=== PATIENT | female | born 1935 | race Caucasian/White ===

== ENCOUNTER 2017-04-30 10:21 | Emergency (ER) | payer OTHER, BC ==
[2017-04-30 10:39] VITALS: BMI 24.6
--- NOTE | 2017-04-30 13:13 | PDOC ---
History of Present Illness - General Chief Complaint: Constipation Stated Complaint: CONSTIPATED Time Seen by Provider: 04/30/17 10:48 History Source: Patient Exam Limitations: No Limitations - History of Present Illness Travel History: No Initial Comments: 04/30/17 12:07 81-year-old female brought in by daughter for evaluation of constipation for the past 2 weeks. Patient also complaining of abdominal distention without nausea, fever, chills, decreased flatulence, or change in urine pattern. Patient states has history of constipation over the years and has had multiple medication regimens. Patient states was seen by Dr. Sneed earlier this week who placed on MiraLAX and suppositories with no improvement. Patient states she was given a prescription for an x-ray if symptoms continue. Timing/Duration: reports: getting worse Quality: reports: moderate, fullness Abdominal Pain Onset Location: reports: generalized abdomen Aggravating Factors: improves with: None Alleviating Factors: improves with: None Past History - Travel Traveled outside of the country in the last 30 days: No - Past Medical History Allergies/Adverse Reactions: Allergies Allergy/AdvReac Type Severity Reaction Status Date / Time No Known Allergies Allergy Unverified 06/09/12 13:25 Home Medications: Ambulatory Orders Amlodipine Besylate [Norvasc -] 2.5 mg PO DAILY 04/30/17 Aspirin [ASA -] 325 mg PO DAILY 04/30/17 Atorvastatin Ca [Lipitor] 80 mg PO HS 04/30/17 Cholecalciferol (Vitamin D3) [Vitamin D3] 2,000 unit PO DAILY 04/30/17 Docusate Sodium [Stool Softener] 100 mg PO BID 04/30/17 Folic Acid 1 mg PO DAILY 04/30/17 Insulin Glargine,Hum.rec.anlog [Lantus (nf)] 34 units SQ HS 04/30/17 Isosorbide Mononitrate [Isosorbide Mononitrate ER] 60 mg PO DAILY 04/30/17 Losartan Potassium 100 mg PO DAILY 04/30/17 Memantine HCl 10 mg PO BID 04/30/17 Metoprolol Succinate [Toprol Xl] 50 mg PO DAILY 04/30/17 [place]-3 Acid Ethyl Esters [Lovaza] 1 gm PO DAILY 04/30/17 Tiotropium [place] [Spiriva] 1 inh IH DAILY 04/30/17 Cardiac Disorders: Yes (1 STENT, ANGINA) Dementia: Yes HTN: Yes - Surgical History Cardiac Surgery: Yes (STENT) Cholecystectomy: Yes - Psycho/Social/Smoking Cessation Hx Suicidal Ideation: No Smoking History: Never smoked Information on smoking cessation initiated: No Hx Alcohol Use: No Drug/Substance Use Hx: No Substance Use Type: None Patient Lives Alone: No Lives with/in: daughter Review of Systems - Review of Systems Able to Perform ROS?: Yes Constitutional: No: Symptoms Reported, Fever, Loss of Appetite, Weakness HEENTM: No: Symptoms Reported Respiratory: No: Symptoms reported Cardiac (ROS): No: Symptoms Reported ABD/GI: Yes: Abdominal Distended, Constipated. No: Diarrhea, Nausea, Poor Appetite, Poor Fluid Intake : No: Symptoms Reported Musculoskeletal: No: Symptoms Reported Integumentary: No: Symptoms Reported Neurological: No: Symptoms reported *Physical Exam - Vital Signs Last Vital Signs Temp Pulse Resp BP Pulse Ox 98.2 F 55 L 17 129/97 99 04/30/17 10:36 04/30/17 11:19 04/30/17 11:19 04/30/17 11:19 04/30/17 11:19 - Physical Exam General Appearance: Yes: Nourished, Appropriately Dressed. No: Apparent Distress Neck: positive: Supple Respiratory/Chest: positive: Lungs Clear, Normal Breath Sounds. negative: Respiratory Distress, Accessory Muscle Use Cardiovascular: negative: Regular Rhythm, Regular Rate, Murmur Gastrointestinal/Abdominal: positive: Soft, Distended. negative: Guarding, Rebound, Tenderness, Mass Musculoskeletal: negative: Normal Inspection Extremity: positive: Normal Capillary Refill Integumentary: positive: Normal Color, Warm, Moist Neurologic: positive: Motor Strength 5/5 (ambulatory) ED Treatment Course - RADIOLOGY Radiology Studies Ordered: Category Date Time Status ABDOMEN & PELVIS CT W/O CONTR [CT] Stat CT Scan 04/30/17 12:02 Ordered ABDOMEN FLAT & UPRIGHT [RAD] Stat Radiology 04/30/17 11:13 Completed Medical Decision Making - Medical Decision Making 04/30/17 12:10 Patient for evaluation of continual constipation despite being placed on medication by her PCP early this week. Patient also started a new medication for dementia approximately 3 weeks ago and was told that this may be the cause but to give the medication a chance. Patient currently on exam had abdominal distention with bowel sounds present 4. Patient had no palpable tenderness or mass. Patient ordered for flat and upright and will consider further imaging once reviewed. 04/30/17 13:12 X-ray shows some abdominal distention with scattered air-fluid levels with no signs of gross constipation. If symptoms persist further imaging with CT may be of help. Patient ordered for abdominal CT with by mouth contrast only. No labs ordered. 04/30/17 16:42 CAT scan shows constipation without acute findings or signs of obstruction inflammation or infection. Patient will be discharged home after receiving a dose of Citrate and then a repeat dose in 4 hours if no bowel movement. Patient given copy of CAT scan report to bring to Dr. Sneed's office. *DC/Admit/Observation/Transfer Diagnosis at time of Disposition: Constipation Qualifiers: Constipation type: other constipation type Qualified Code(s): K59.09 - Other constipation - Discharge Dispostion Disposition: HOME Condition at time of disposition: Good - Referrals Referrals: Evelyn Sneed MD [Primary Care Provider] - - Patient Instructions Printed Discharge Instructions: DI for Constipation Additional Instructions: Please take mag citrate now and then again in 4 hours again if you do not have a bowel movement. Do not have a bowel movement by tomorrow morning please continue regimen as previously prescribed by Dr. Sneed which includes MiraLAX. If symptoms do worsen or continue please either notify your PCP and/or return to the ED.
[2017-04-30] MEDS ORDERED: MAGNESIUM CITRATE 300 ML BOTTLE ONE (16:43)
[2017-04-30] MEDS ORDERED: MAGNESIUM CITRATE 300 ML BOTTLE PO ONE (16:44)
[2017-04-30 17:00] VITALS: BP 172/70; PULSE 82; TEMP 98.6
== END 2017-04-30 17:00 | disposition home or self-care (01) ==
LOC: JER 10:21
DX: K59.09 Other constipation (principal); I20.9 Angina pectoris, unspecified; Z95.5 Presence of coronary angioplasty implant and graft; F03.90 Unspecified dementia, unspecified severity, without behavioral disturbance, psychotic disturbance, mood disturbance, and anxiety; I10 Essential (primary) hypertension
CPT/HCPCS: 74020-TC; 74176-TC; 99282-25; Q9967

== ENCOUNTER 2017-06-16 13:16 | Inpatient (IN) | payer OTHER, BC ==
[2017-06-16] MEDS ORDERED: ALBUTEROL SO4 2.5/IPRATROPIUM 0.5 INH SOL 3 ML VIAL.NEB. NEB ONE ×4 (13:32→14:01)
[2017-06-16 13:38] LABS: ARTERIAL BLD GAS O2 SATURATION 97.4 % (90-98.9); ARTERIAL BLOOD GAS HCO3 24.8 meq/L (22-26)
[2017-06-16 13:41] LABS: ALLENS TEST POSITIVE; ART PUNCT SITE RIGHT RADIAL
[2017-06-16 13:42] LABS: LPM/O2% 100%; PT. ON O2? YES
[2017-06-16] MEDS ORDERED: MAGNESIUM SULF 50% (8.12 MEQ/2 ML-1 GM VIAL) ONE (13:45)
[2017-06-16] MEDS ORDERED: DEXAMETHASONE SOD PHOSPHATE 10 MG/1 ML VIAL ONE (13:45)
[2017-06-16 13:49] LABS: BASOPHIL 1.3 % (0-2.0); EOSINOPHIL 1.6 % (0-4.5); MCH 27.2 pg (25.7-33.7); MCHC 31.4 g/dl (32.0-36.0); MEAN CELL VOLUME 86.7 fl (80-96); MEAN PLT VOLUME 8.7 fl (7.5-11.1); NEUTROPHILS 63.2 % (42.8-82.8); PLATELET COUNT 433 K/MM3 (134-434); RDW 14.6 % (11.6-15.6); WHITE BLOOD COUNT 19.4 K/mm3 (4.0-10.0)
[2017-06-16 14:08] LABS: ARTERIAL BLOOD GAS pH 7.09 (7.35-7.45)
[2017-06-16 14:15] LABS: ALBUMIN 3.5 g/dl (3.4-5.0); ANION GAP 9 (8-16); BILIRUBIN,TOTAL 0.3 mg/dL (0.2-1.0); CALCIUM 9.2 mg/dL (8.5-10.1); CO2 26 mmol/L (21-32); CREATININE 1.1 mg/dL (0.55-1.02); GLUCOSE,RANDOM 204 mg/dL (74-106); INR 1.01 (0.82-1.09); PROTHROMBIN TIME (PATIENT) 11.4 SEC (9.98-11.88); SGOT/AST 24 U/L (15-37); SGPT/ALT 27 U/L (12-78); TOT PROT 7.2 g/dl (6.4-8.2)
[2017-06-16 14:17] LABS: ALK PHOS 108 U/L (45-117); CPK 110 IU/L (26-192); TROPONIN I < 0.02 ng/ml (0.00-0.05)
[2017-06-16 14:18] LABS: ACTIVATED PTT 29.9 SECONDS (26.9-34.4)
--- NOTE | 2017-06-16 14:27 | PDOC ---
History of Present Illness - General History Source: EMS, Family Exam Limitations: Other - History of Present Illness Initial Comments: 06/16/17 15:45 81 year old female, with significant past medical history of COPD/asthma, DM, HTN, s/p 1 cardiac stent, and HLD, who presents to the emergency room in respiratory distress s/p endoscopy in Dr. Tai office just prior to arrival to the emergency room. The patient was given 100 mg of Propofol during the procedure. Her O2 sat decreased and she had difficulty breathing upon waking up from the procedure. EMS administered 2 combivents, 2 of Mag, and CPAP en route. Son states that she was never intubated for asthma. Allergies: NKDA PCP: Dr. Evelyn Sneed Range Management Specialist: Dr. Lul Solitario Fuel Cell Systems Engineer: Dr. Lamb Lead Generation Marketing Manager: Dr. Donny Carmichael Photography Teacher: Dr. Donny Mueller <Rossy Guevara - Last Filed: 06/16/17 15:45> <Tiburcio Alvarado - Last Filed: 06/16/17 16:50> - General Chief Complaint: Shortness of Breath Stated Complaint: DIFFICULTY BREATHING Time Seen by Provider: 06/16/17 13:34 Past History <Rossy Guevara - Last Filed: 06/16/17 15:45> - Past Medical History Cardiac Disorders: Yes (1 STENT, ANGINA) COPD: (emphysema) Dementia: Yes Diabetes: Yes HTN: Yes Hypercholesterolemia: Yes - Surgical History Cardiac Surgery: Yes (STENT) Cholecystectomy: Yes - Suicide/Smoking/Psychosocial Hx Smoking History: Former smoker Have you smoked in the past 12 months: No Information on smoking cessation initiated: No Hx Alcohol Use: No Drug/Substance Use Hx: No Substance Use Type: None <Tiburcio Alvarado - Last Filed: 06/16/17 16:50> - Past Medical History Allergies/Adverse Reactions: Allergies Allergy/AdvReac Type Severity Reaction Status Date / Time No Known Allergies Allergy Unverified 06/16/17 13:25 Home Medications: Ambulatory Orders Amlodipine Besylate [Norvasc -] 2.5 mg PO DAILY 04/30/17 Aspirin [ASA -] 325 mg PO DAILY 04/30/17 Atorvastatin Ca [Lipitor] 80 mg PO HS 04/30/17 Cholecalciferol (Vitamin D3) [Vitamin D3] 2,000 unit PO DAILY 04/30/17 Docusate Sodium [Stool Softener] 100 mg PO BID 04/30/17 Folic Acid 1 mg PO DAILY 04/30/17 Insulin Glargine,Hum.rec.anlog [Lantus (nf)] 34 units SQ HS 04/30/17 Isosorbide Mononitrate [Isosorbide Mononitrate ER] 60 mg PO DAILY 04/30/17 Losartan Potassium 100 mg PO DAILY 04/30/17 Memantine HCl 10 mg PO BID 04/30/17 Metoprolol Succinate [Toprol Xl] 50 mg PO DAILY 04/30/17 Tiotropium [place] [Spiriva] 1 inh IH DAILY 04/30/17 Insulin Aspart [Novolog] 100 unit SQ 06/16/17 Review of Systems - Review of Systems Able to Perform ROS?: No (Respiratory Distress) <Rossy Guevara - Last Filed: 06/16/17 15:45> *Physical Exam - Vital Signs Last Vital Signs Temp Pulse Resp BP Pulse Ox 98.0 F 111 H 23 122/86 100 06/16/17 14:38 06/16/17 14:38 06/16/17 14:38 06/16/17 14:38 06/16/17 14:38 <Rossy Guevara - Last Filed: 06/16/17 15:45> - Vital Signs Last Vital Signs Temp Pulse Resp BP Pulse Ox 98.0 F 114 H 35 H 191/85 100 06/16/17 14:00 06/16/17 14:00 06/16/17 14:00 06/16/17 14:00 06/16/17 14:00 <Tiburcio Alvarado - Last Filed: 06/16/17 16:50> Heart Score/ECG Review #1 06/16/17 16:30 Twelve-lead EKG was performed and reviewed by me. Sinus tachycardia, rate 124. Normal axis. Normal intervals. poor baseline, but no ST elevations. <Tiburcio Alvarado - Last Filed: 06/16/17 16:50> ED Treatment Course - LABORATORY CBC & Chemistry Diagram: 06/16/17 12:39 06/16/17 12:39 - ADDITIONAL ORDERS Additional order review: Laboratory Results 1006/16/17 06/16/17 14:29 14:14 13:32 PT with INR INR PTT (Actin FS) Puncture Site Right radial Right radial ABG pH 7.16 L* 7.09 L* ABG pCO2 at Pt Temp 66.7 H* D 85.6 H* ABG pO2 at Pt Temp 482.0 H* 131.0 H ABG HCO3 22.9 24.8 ABG O2 Sat (Measured) 99.7 H* 97.4 ABG O2 Content 18.2 17.0 ABG Base Excess -6.5 L -7.0 L Jacinto Test Negative Positive Carboxyhemoglobin 0.7 Methemoglobin 1.0 O2 Delivery Device Bipap 16/7 Bipap 12/7 Oxygen Flow Rate 100% 100% PEEP 0.0 0.0 Sodium Potassium Chloride Carbon Dioxide Anion Gap BUN Creatinine Creat Clearance w eGFR Random Glucose Lactic Acid Calcium Total Bilirubin AST ALT Alkaline Phosphatase Creatine Kinase Troponin I B-Natriuretic Peptide Total Protein Albumin Urine Color Straw Urine Appearance Clear Urine pH 5.0 Urine Protein 2+ H Urine Glucose (UA) Negative Urine Ketones Negative Urine Blood 1+ H Urine Nitrite Negative Urine Bilirubin Negative Urine Urobilinogen Negative Blood Type Antibody Screen 06/16/17 06/16/17 06/16/17 12:39 12:39 12:39 PT with INR INR PTT (Actin FS) Puncture Site ABG pH ABG pCO2 at Pt Temp ABG pO2 at Pt Temp ABG HCO3 ABG O2 Sat (Measured) ABG O2 Content ABG Base Excess Jacinto Test Carboxyhemoglobin Methemoglobin O2 Delivery Device Oxygen Flow Rate PEEP Sodium 141 Potassium 4.2 Chloride 106 Carbon Dioxide 26 Anion Gap 9 BUN 29 H Creatinine 1.1 H Creat Clearance w eGFR 47.55 Random Glucose 204 H Lactic Acid 1.1 Calcium 9.2 Total Bilirubin 0.3 AST 24 ALT 27 Alkaline Phosphatase 108 Creatine Kinase 110 Troponin I < 0.02 B-Natriuretic Peptide 274.28 Total Protein 7.2 Albumin 3.5 Urine Color Urine Appearance Urine pH Urine Protein Urine Glucose (UA) Urine Ketones Urine Blood Urine Nitrite Urine Bilirubin Urine Urobilinogen Blood Type A POSITIVE Antibody Screen Negative 06/16/17 12:39 PT with INR 11.40 INR 1.01 PTT (Actin FS) 29.9 Puncture Site ABG pH ABG pCO2 at Pt Temp ABG pO2 at Pt Temp ABG HCO3 ABG O2 Sat (Measured) ABG O2 Content ABG Base Excess [place] Test Carboxyhemoglobin Methemoglobin O2 Delivery Device Oxygen Flow Rate PEEP Sodium Potassium Chloride Carbon Dioxide Anion Gap BUN Creatinine Creat Clearance w eGFR Random Glucose Lactic Acid Calcium Total Bilirubin AST ALT Alkaline Phosphatase Creatine Kinase Troponin I B-Natriuretic Peptide Total Protein Albumin Urine Color Urine Appearance Urine pH Urine Protein Urine Glucose (UA) Urine Ketones Urine Blood Urine Nitrite Urine Bilirubin Urine Urobilinogen Blood Type Antibody Screen 06/16/17 12:39 RBC 4.50 MCV 86.7 MCHC 31.4 L RDW 14.6 MPV 8.7 Neutrophils % 63.2 Lymphocytes % 29.4 Monocytes % 4.5 Eosinophils % 1.6 Basophils % 1.3 <Rossy Guevara - Last Filed: 06/16/17 15:45> - LABORATORY CBC & Chemistry Diagram: 06/16/17 12:39 06/16/17 12:39 - ADDITIONAL ORDERS Additional order review: Laboratory Results 06/16/17 13:32 Puncture Site Right radial ABG pH 7.09 L* ABG pCO2 at Pt Temp 85.6 H* ABG pO2 at Pt Temp 131.0 H ABG HCO3 24.8 ABG O2 Sat (Measured) 97.4 ABG O2 Content 17.0 ABG Base Excess -7.0 L [place] Test Positive Carboxyhemoglobin 0.7 Methemoglobin 1.0 O2 Delivery Device Bipap 08/06 Oxygen Flow Rate 100% PEEP 0.0 06/16/17 12:39 RBC 4.50 MCV 86.7 MCHC 31.4 L RDW 14.6 MPV 8.7 Neutrophils % 63.2 Lymphocytes % 29.4 Monocytes % 4.5 Eosinophils % 1.6 Basophils % 1.3 - RADIOLOGY Radiology Studies Ordered: Category Date Time Status CHEST X-RAY PORTABLE* [RAD] Stat Radiology 06/16/17 13:25 Completed <Tiburcio Alvarado - Last Filed: 06/16/17 16:50> Medical Decision Making - Medical Decision Making 06/16/17 15:15 EXAM#: TYPE/EXAM: RESULT: [id number] RAD/CHEST X-RAY PORTABLE* HISTORY PROVIDED: Shortness of breath. A single frontal portable projection of the chest at 1:32 PM is submitted. The heart size is not enlarged. No acute infiltrates or pleural effusions are identified. There are increased interstitial markings diffusely most likely are chronic in nature. The possibility of a mild degree of acute congestion cannot be excluded. IMPRESSION: Possible mild congestion. Reported By: Rio Cannon MD 06/16/17 1414 <Rossy Guevara - Last Filed: 06/16/17 15:45> - Critical Care Time Total Critical Care Time (minutes): 60 Critical Care Statement: The care of this patient involved high complexity decision making to prevent further life threatening deterioration of the patient 's condition and/or to evaluate & treat vital organ system(s) failure or risk of failure. - Medical Decision Making 06/16/17 15:16 81yo F hx CAD s/p stent, asthma, p/w resp distress after endoscopy today. Pt minimally responsive on CPAP on presentation, satting 75%. Lungs with poor air movement, and diffuse wheezing. Pt was bagged to 96%, quickly transitioned to BiPAP. Initial ABG with pH 7.09/86/100+. After 1 hour of Bipap, rpt 7.16/67/100+ Clinically, pt is more awake and responsive now. Acute wheezing/resp failure likely 2/2 100mg propofol given during the procedure. Plan -labs -CXR -admit ICU 06/16/17 15:[address] Albright/Rufino for further management. Case discussed in detail with admitting physician including history, physical exam and ancillary studies. Admitting physician has assumed care for the patient, will follow all pending diagnostics and will complete the evaluation and treatment. <Tiburcio Alvarado - Last Filed: 06/16/17 16:50> *DC/Admit/Observation/Transfer - Attestations Scribe Attestion: 06/16/17 15:46 Documentation prepared by IMELDA Newell, acting as medical assistant float for Tiburcio Alvarado MD. <Rossy Guevara - Last Filed: 06/16/17 15:45> - Discharge Dispostion Admit: Yes - Attestations Physician Attestion: 06/16/17 14:52 I, Dr. Tiburcio Alvarado MD, attest that this document has been prepared under my direction and personally reviewed by me in its entirety. I further attest, that it accurately reflects all work, treatment, procedures and medical decision -making performed by me. <Tiburcio Alvarado - Last Filed: 06/16/17 16:50> Diagnosis at time of Disposition: Acute hypercapnic respiratory failure - Discharge Dispostion Condition at time of disposition: Guarded
--- NOTE | 2017-06-16 14:39 | HP ---
Admitting History and Physical - Primary Care Physician PCP: Evelyn Sneed - Admission Chief Complaint: hypoxia and respiratory distress History of Present Illness: 81 yr old female with h/o of asthma,Dm, HLD,CAD and carotid stenosis was getting a endoscopy for some malignancy work up today got propofol for procedure and then had severe asthmatic attack and was sent to ED , her sats were n 70 got nebulizers put on cpap still saturating in 70 range got 10mg decadron and 2mg.in the ER patient was tired placed on bipap got nebulizers more awake her first ABG showed Ph 7.0 nad 85 co2 patient continue to receive nebulizers History Source: Medical Record, Transfer Record - Smoking History Smoking history: Former smoker Have you smoked in the past 12 months: No - Alcohol/Substance Use Hx Alcohol Use: No Home Medications - Allergies Allergies/Adverse Reactions: Allergies Allergy/AdvReac Type Severity Reaction Status Date / Time No Known Allergies Allergy Unverified 06/16/17 13:25 - Home Medications Home Medications: Ambulatory Orders Amlodipine Besylate [Norvasc -] 2.5 mg PO DAILY 04/30/17 Aspirin [ASA -] 325 mg PO DAILY 04/30/17 Atorvastatin Ca [Lipitor] 80 mg PO HS 04/30/17 Cholecalciferol (Vitamin D3) [Vitamin D3] 2,000 unit PO DAILY 04/30/17 Docusate Sodium [Stool Softener] 100 mg PO BID 04/30/17 Folic Acid 1 mg PO DAILY 04/30/17 Insulin Glargine,Hum.rec.anlog [Lantus (nf)] 34 units SQ HS 04/30/17 Isosorbide Mononitrate [Isosorbide Mononitrate ER] 60 mg PO DAILY 04/30/17 Losartan Potassium 100 mg PO DAILY 04/30/17 Memantine HCl 10 mg PO BID 04/30/17 Metoprolol Succinate [Toprol Xl] 50 mg PO DAILY 04/30/17 Tiotropium [place] [Spiriva] 1 inh IH DAILY 04/30/17 Insulin Aspart [Novolog] 100 unit SQ 06/16/17 Review of Systems Unable to obtain ROS, reason: patient has bipap mask on - Review of Systems Respiratory: reports: SOB, Wheezing Physical Examination Vital Signs: Vital Signs Temperature 98.0 F 06/16/17 14:00 Pulse Rate 114 H 06/16/17 14:00 Respiratory Rate 35 H 06/16/17 14:00 Blood Pressure 191/85 06/16/17 14:00 O2 Sat by Pulse Oximetry (%) 100 06/16/17 14:00 Cardiovascular: Yes: Tachycardia, S1, S2 Respiratory: Yes: Accessory Muscle Use, On BiPap Gastrointestinal: Yes: Normal Bowel Sounds, Soft Edema: No Neurological: Yes: Alert (awake) Labs: CBC, BMP 06/16/17 12:39 06/16/17 12:39 Problem List - Problems (1) Acute hypercapnic respiratory failure Assessment/Plan: resp acidosis icu monitoring for resp status bipap serial abg nebulizer solumedrol protonix pulm scd abx monitor QTc interval while on abx Code(s): J96.02 - ACUTE RESPIRATORY FAILURE WITH HYPERCAPNIA (2) Diabetes Assessment/Plan: bgm sliding scale hga1c lipid panel Code(s): E11.9 - TYPE 2 DIABETES MELLITUS WITHOUT COMPLICATIONS Qualifiers: Diabetes mellitus type: type 2 (3) Hypertension Assessment/Plan: cardiology consult CAD aspirin statin,toprol and norvasc Code(s): I10 - ESSENTIAL (PRIMARY) HYPERTENSION (4) CAD (coronary artery disease) Assessment/Plan: statin BB, imdur, Code(s): I25.10 - ATHSCL HEART DISEASE OF [place] CORONARY ARTERY W/O ANG PCTRS (5) Renal insufficiency, mild Assessment/Plan: ivf Code(s): N28.9 - DISORDER OF KIDNEY AND URETER, UNSPECIFIED
[2017-06-16 14:48] LABS: ARTERIAL BLD GAS O2 SATURATION 99.7 % (90-98.9); ARTERIAL BLOOD GAS BASE EXCESS -6.5 meq/l (-2-2); ARTERIAL BLOOD GAS HCO3 22.9 meq/L (22-26)
[2017-06-16 14:49] LABS: ALLENS TEST NEGATIVE; ART PUNCT SITE RIGHT RADIAL; LPM/O2% 100%; PT. ON O2? YES
[2017-06-16 14:50] LABS: TYPE OF O2 BIPAP 16/7
[2017-06-16 14:51] LABS: ARTERIAL BLOOD GAS pH 7.16 (7.35-7.45)
[2017-06-16 14:55] LABS: URINE APPEARANCE CLEAR; URINE BILIRUBIN NEGATIVE (NEGATIVE); URINE BLOOD 1+ (NEGATIVE); URINE COLOR STRAW; URINE GLUCOSE (UA) NEGATIVE (NEGATIVE); URINE KETONE NEGATIVE (NEGATIVE); URINE NITRITE NEGATIVE (NEGATIVE); URINE UROBILINOGEN NEGATIVE mg/dL (0.2-1.0)
[2017-06-16 14:57] LABS: URINE PROTEIN 2+ (NEGATIVE)
[2017-06-16] MEDS ORDERED: SODIUM CHLORIDE 1,000 ML IV SCH (15:15)
--- NOTE | 2017-06-16 15:25 | CON.CARD ---
Consult Consult Specialty:: Cardiology Referred by:: Dr Sneed Reason for Consultation:: sob - History of Present Illness Chief Complaint: sob History of Present Illness: She is an 81 year old female with h/o of asthma, diabetes, chol ,CAD s/p stent mid Lcx 2007 (other vessels nonobst, nlef on echo) follows with Dr Lul Solitario at [facility], carotid stenosis, abdominal pain who was undergoing EGD with propofol for sedation (found with mass) became severely short of breath with wheezing brought to the ER. No chest pain, palpitations, orthopnea, pnd or edema. Baseline exercise tolerance is good. Given asthma treatment and bipap in ER with improvement. Lying flat resisting Bipap. - History Source History Provided By: Patient, Family Member, Medical Record - Past Medical History Cardio/Vascular: Yes: CAD, HTN, Hyperlipdemia Pulmonary: Yes: Asthma, COPD Gastrointestinal: Yes: Other (EGD noted with mass in stomach. ) - Alcohol/Substance Use Hx Alcohol Use: No - Smoking History Smoking history: Former smoker Have you smoked in the past 12 months: No Home Medications - Allergies Allergies/Adverse Reactions: Allergies Allergy/AdvReac Type Severity Reaction Status Date / Time No Known Allergies Allergy Unverified 06/16/17 13:25 - Home Medications Home Medications: Ambulatory Orders Amlodipine Besylate [Norvasc -] 2.5 mg PO DAILY 04/30/17 Aspirin [ASA -] 325 mg PO DAILY 04/30/17 Atorvastatin Ca [Lipitor] 80 mg PO HS 04/30/17 Cholecalciferol (Vitamin D3) [Vitamin D3] 2,000 unit PO DAILY 04/30/17 Docusate Sodium [Stool Softener] 100 mg PO BID 04/30/17 Folic Acid 1 mg PO DAILY 04/30/17 Insulin Glargine,Hum.rec.anlog [Lantus (nf)] 34 units SQ HS 04/30/17 Isosorbide Mononitrate [Isosorbide Mononitrate ER] 60 mg PO DAILY 04/30/17 Losartan Potassium 100 mg PO DAILY 04/30/17 Memantine HCl 10 mg PO BID 04/30/17 Metoprolol Succinate [Toprol Xl] 50 mg PO DAILY 04/30/17 Tiotropium [place] [Spiriva] 1 inh IH DAILY 04/30/17 Insulin Aspart [Novolog] 100 unit SQ 06/16/17 Family Disease History - Family Disease History Family History: Unable to Obtain Review of Systems Unable to obtain ROS, reason: sob Vital Signs: Vital Signs Temperature 98.0 F 06/16/17 14:38 Pulse Rate 111 H 06/16/17 14:38 Respiratory Rate 23 06/16/17 14:38 Blood Pressure 122/86 06/16/17 14:38 O2 Sat by Pulse Oximetry (%) 100 06/16/17 14:38 Constitutional: Yes: Mild Distress Eyes: Yes: Conjunctiva Clear, EOM Intact HENT: Yes: Atraumatic, Normocephalic Neck: Yes: Trachea Midline Respiratory: Yes: Wheezes (bilat throughout lung maldonado) Renal/: Yes: WNL Cardiovascular: Yes: WNL, Regular Rate and Rhythm JVD: No Carotid Bruit: No PMI: Non-Displaced Heart Sounds: Yes: S1, S2 Edema: No Peripheral Pulses WNL: Yes - Other Data Labs, Other Data: CBC, BMP 06/16/17 12:39 06/16/17 12:39 INR, PTT INR 1.01 (0.82-1.09) 06/16/17 12:39 Troponin, BNP 06/16/17 12:39 Troponin I < 0.02 B-Natriuretic Peptide 274.28 Troponin, BNP 06/16/17 12:39 Troponin I < 0.02 B-Natriuretic Peptide 274.28 NSR, nssttw changes. Imaging - Results Chest X-ray: Report Reviewed (AROLDO) Problem List - Problems (1) CAD (coronary artery disease) Assessment/Plan: I believe that her acute hypercapneic respiratory failure is bronchospastic in nature, low likelihood of CHF in the setting of a negative CXR and normal bnp. would continue her HTN and angina medications. OK to hold her aspirin if further gastroenterologic procedures are planned. No cardiac contraindications to GI workup once she is stable from a pulmonary standpoint. Pulm eval. ICU eval pending. Get records from Dr Lul Solitario if any recent workup. would defer ischemia evaluation. Echo Code(s): I25.10 - ATHSCL HEART DISEASE OF [place] CORONARY ARTERY W/O ANG PCTRS Qualifiers: Coronary Disease-Associated Artery/Lesion type: [place] artery [place] vs. transplanted heart: [place] heart Associated angina: without angina Qualified Code(s): I25.10 - Atherosclerotic heart disease of [place] coronary artery without angina pectoris; I25.10 - Atherosclerotic heart disease of [place] coronary artery without angina pectoris; I25.10 - Atherosclerotic heart disease of [place] coronary artery without angina pectoris
[2017-06-16 15:29] LABS: URINE RBC 4 /hpf (0-3); URINE WBC 5 /hpf (3-5)
[2017-06-16] MEDS: METOPROLOL SUCCINATE 50 MG TAB.SR.24H (FP) PO SCH (15:44)
[2017-06-16] MEDS ORDERED: AZITHROMYCIN IVPB 250 ML IVPB ONE (15:45)
[2017-06-16] MEDS: AZITHROMYCIN IVPB 500 MG in DEXTROSE 5%-WATER - 250 ML IVPB SCH (15:52)
[2017-06-16] MEDS ORDERED: ACETAMINOPHEN 1000 MG/100 ML VIAL (NON FORMULARY) IVPB ONE (15:54)
[2017-06-16] MEDS ORDERED: ACETAMINOPHEN INJECTION 100 ML IVPB ONE (15:56)
[2017-06-16] MEDS: INSULIN SLIDING SCALE (NOVOLOG) 1 VIAL SQ SCH ×2 (17:02→21:31)
[2017-06-16 18:41] VITALS: BMI 23.6
[2017-06-16] MEDS ORDERED: FLU VACCINE QUAD 60 MCG/0.5 ML (MDV 17-18) IM ONE (18:42)
[2017-06-16] MEDS: ALBUTEROL SO4 0.083% IH SOL 2.5 MG/3 ML VIAL.NEB. NEB SCH ×2 (18:49→23:30)
[2017-06-16 18:50] LABS: URINE LEUK ESTERASE Negative (NEGATIVE)
[2017-06-16] MEDS ORDERED: ACETAMINOPHEN 325 MG TABLET (FP) PO PRN (19:52)
[2017-06-16] MEDS ORDERED: HEMOQUE TEST 1 EACH EACH ONE (21:06)
[2017-06-16 21:26] LABS: ARTERIAL BLOOD GAS BASE EXCESS -4.1 meq/l (-2-2); ARTERIAL BLOOD GAS HCO3 22.3 meq/L (22-26)
[2017-06-16 21:27] LABS: ALLENS TEST POSITIVE; ART PUNCT SITE RIGHT RADIAL; ARTERIAL BLOOD GAS pH 7.27 (7.35-7.45); LPM/O2% 4L; PT. ON O2? YES; TYPE OF O2 NASAL
[2017-06-16] MEDS: MEMANTINE HCL 10 MG TABLET (FP) PO SCH (21:31)
[2017-06-16] MEDS: MUPIROCIN 2% TOPICAL OINTMENT FOR DECOLONIZATION NS SCH (21:32)
[2017-06-16] MEDS ORDERED: predniSONE 20 MG TABLET (UD) PO ONE (21:34)
--- NOTE | 2017-06-16 21:48 | CONSULT ---
Consult Consult Specialty:: Pulm/CCM Reason for Consultation:: resp failure, COPD - History of Present Illness History of Present Illness: This is a 81 yo woman with DM, HTN, CAD s/p stent, COPD/Asthma who developed acute SOB w/ hypercapnic respiratory failure after an outpatient EGD. Briefly, patient with decreased exercise tolerance w/ SOB after 1 flight of stairs, no home O2. She was undergoing EGD for newly discovered mass. She developed acute SOB w/ diffuse wheezing and sent to the ED. In the ED patient treated for COPD/ asthma exacerbation w/ NIPPV, steroids (decadron 10mg x1), magnesium (2gm) and O2. Initial AB.09/85/131. After multiple albuterol treatment repeat AB.16/66.7/482 (NIPPV: 16/ 100%). Cardiology consulted given c/f HF but troponin and BNP negative. Patient transferred to ICU. In the ICU patient's respiratory status improved and she was placed on NC 4lpm. AB.27/50/148. Patient awake and alert denies: fever/chills/CP/GUZMAN/N/V/sick contacts. ? mild chest tightness. Patient stated she is DNR. Living will in chart. - History Source History Provided By: Patient, Medical Record Limitations to Obtaining History: Poor Historian - Past Medical History Cardio/Vascular: Yes: CAD, HTN, Hyperlipdemia Pulmonary: Yes: Asthma, COPD Gastrointestinal: Yes: Other (EGD noted with mass in stomach. ) - Alcohol/Substance Use Hx Alcohol Use: No - Smoking History Smoking history: Former smoker Have you smoked in the past 12 months: No If you are a former smoker, when did you quit?: 20 years ago Home Medications - Allergies Allergies/Adverse Reactions: Allergies Allergy/AdvReac Type Severity Reaction Status Date / Time No Known Allergies Allergy Unverified 06/16/17 13:25 - Home Medications Home Medications: Ambulatory Orders Amlodipine Besylate [Norvasc -] 2.5 mg PO DAILY 04/30/17 Aspirin [ASA -] 325 mg PO DAILY 04/30/17 Atorvastatin Ca [Lipitor] 80 mg PO HS 04/30/17 Cholecalciferol (Vitamin D3) [Vitamin D3] 2,000 unit PO DAILY 04/30/17 Docusate Sodium [Stool Softener] 100 mg PO BID 04/30/17 Folic Acid 1 mg PO DAILY 04/30/17 Insulin Glargine,Hum.rec.anlog [Lantus (nf)] 34 units SQ HS 04/30/17 Isosorbide Mononitrate [Isosorbide Mononitrate ER] 60 mg PO DAILY 04/30/17 Losartan Potassium 100 mg PO DAILY 04/30/17 Metoprolol Succinate [Toprol Xl] 50 mg PO DAILY 04/30/17 Tiotropium [place] [Spiriva] 1 inh IH DAILY 04/30/17 Acetaminophen [Tylenol Extra Strength] 500 mg PO HS 06/16/17 Insulin Aspart [Novolog] 0 unit SQ ASDIR PRN 06/16/17 Family Disease History - Family Disease History Family History: Unremarkable Review of Systems - Review of Systems Constitutional: reports: No Symptoms HENT: reports: No Symptoms Neck: reports: No Symptoms Cardiovascular: reports: Shortness of Breath Respiratory: reports: Exercise Intolerance, SOB, SOB on Exertion, Wheezing Physical Exam Vital Signs: Vital Signs Temperature 97.4 F L 06/16/17 18:53 Pulse Rate 90 06/16/17 20:00 Respiratory Rate 17 06/16/17 20:06 Blood Pressure 94/80 06/16/17 20:00 O2 Sat by Pulse Oximetry (%) 98 06/16/17 20:06 Current Medications Acetaminophen (Tylenol -) 650 mg PO Q6H PRN PRN Reason: FEVER OR PAIN Last Admin: 06/16/17 20:13 Dose: 650 mg Albuterol Sulfate (Ventolin 0.083% Nebulizer Soln -) 1 amp NEB QIDR [facility] Last Admin: 06/16/17 18:49 Dose: Not Given Atorvastatin Calcium (Lipitor -) 40 mg PO [facility] Last Admin: 06/16/17 21:31 Dose: 40 mg Chlorhexidine Gluconate (Hibiclens For Decolonization -) 1 applic TP [facility] Last Admin: 06/16/17 21:33 Dose: 1 applic Folic Acid (Folic Acid -) 1 mg PO DAILY [facility] Azithromycin 500 mg/ Dextrose 250 mls @ 250 mls/hr IVPB DAILY [facility] Last Admin: 06/16/17 15:52 Dose: 250 mls/hr Insulin Aspart (Novolog Vial Sliding Scale -) 1 vial SQ ACHS [facility] PRN Reason: Protocol Last Admin: 06/16/17 21:31 Dose: 8 units Insulin Detemir (Levemir Vial) 30 units SQ HS [facility] Last Admin: 06/16/17 21:31 Dose: 30 units Isosorbide Mononitrate (Imdur -) 60 mg PO DAILY [facility] Losartan Potassium (Cozaar -) 100 mg PO DAILY [facility] Memantine (Namenda -) 10 mg PO BID [facility] Last Admin: 06/16/17 21:31 Dose: 10 mg Metoprolol Succinate (Toprol Xl -) 50 mg PO DAILY [facility] Last Admin: 06/16/17 15:44 Dose: Not Given Mupirocin (Bactroban Ointment (For Decolonization) -) 1 applic NS BID [facility] Stop: 06/21/17 21:59 Last Admin: 06/16/17 21:32 Dose: 1 applic Prednisone (Deltasone -) 20 mg PO DAILY [facility] Constitutional: Yes: Calm, Mild Distress Eyes: Yes: EOM Intact HENT: Yes: Normocephalic Neck: Yes: Trachea Midline Cardiovascular: Yes: Regular Rate and Rhythm, S1, S2 Respiratory: Yes: On Nasal O2 (1lpm), Wheezes Gastrointestinal: Yes: Normal Bowel Sounds, Soft Extremities: Yes: WNL Edema: No Neurological: Yes: Alert, Cran Nerves II-XII Intact Labs: CBCD WBC 19.4 K/mm3 (4.0-10.0) H 06/16/17 12:39 RBC 4.50 M/mm3 (3.60-5.2) 06/16/17 12:39 Hgb 12.2 GM/dL (10.7-15.3) 06/16/17 12:39 Hct 39.0 % (32.4-45.2) 06/16/17 12:39 MCV 86.7 fl (80-96) 06/16/17 12:39 MCHC 31.4 g/dl (32.0-36.0) L 06/16/17 12:39 RDW 14.6 % (11.6-15.6) 06/16/17 12:39 Plt Count 433 K/MM3 (134-434) 06/16/17 12:39 MPV 8.7 fl (7.5-11.1) 06/16/17 12:39 CMP Sodium 141 mmol/L (136-145) 06/16/17 12:39 Potassium 4.2 mmol/L (3.5-5.1) 06/16/17 12:39 Chloride 106 mmol/L (98-107) 06/16/17 12:39 Carbon Dioxide 26 mmol/L (21-32) 06/16/17 12:39 Anion Gap 9 (8-16) 06/16/17 12:39 BUN 29 mg/dL (7-18) H 06/16/17 12:39 Creatinine 1.1 mg/dL (0.55-1.02) H 06/16/17 12:39 Creat Clearance w eGFR 47.55 (>60) 06/16/17 12:39 Random Glucose 204 mg/dL (74-106) H 06/16/17 12:39 Calcium 9.2 mg/dL (8.5-10.1) 06/16/17 12:39 Total Bilirubin 0.3 mg/dL (0.2-1.0) 06/16/17 12:39 AST 24 U/L (15-37) 06/16/17 12:39 ALT 27 U/L (12-78) 06/16/17 12:39 Alkaline Phosphatase 108 U/L (45-117) 06/16/17 12:39 Total Protein 7.2 g/dl (6.4-8.2) 06/16/17 12:39 Albumin 3.5 g/dl (3.4-5.0) 06/16/17 12:39 CARDIAC ENZYMES Creatine Kinase 110 IU/L (26-192) 06/16/17 12:39 Troponin I < 0.02 ng/ml (0.00-0.05) 06/16/17 12:39 ABG Results ABG pH 7.27 (7.35-7.45) L 06/16/17 21:02 ABG pCO2 at Pt Temp 50.1 mmHg (35-45) H D 06/16/17 21:02 ABG pO2 at Pt Temp 148.0 mmHg (68-100) H D 06/16/17 21:02 ABG HCO3 22.3 meq/L (22-26) 06/16/17 21:02 ABG O2 Sat (Measured) 99.0 % (90-98.9) H 06/16/17 21:02 ABG O2 Content 13.8 % vol (15-22) L 06/16/17 21:02 ABG Base Excess -4.1 meq/l (-2-2) L 06/16/17 21:02 Imaging - Results Chest X-ray: Report Reviewed, Image Reviewed Problem List - Problems (1) Acute hypercapnic respiratory failure Code(s): J96.02 - ACUTE RESPIRATORY FAILURE WITH HYPERCAPNIA (2) CAD (coronary artery disease) Code(s): I25.10 - ATHSCL HEART DISEASE OF [place] CORONARY ARTERY W/O ANG PCTRS Qualifiers: Coronary Disease-Associated Artery/Lesion type: [place] artery [place] vs. transplanted heart: [place] heart Associated angina: without angina Qualified Code(s): I25.10 - Atherosclerotic heart disease of [place] coronary artery without angina pectoris; I25.10 - Atherosclerotic heart disease of [place] coronary artery without angina pectoris; I25.10 - Atherosclerotic heart disease of [place] coronary artery without angina pectoris (3) Diabetes Code(s): E11.9 - TYPE 2 DIABETES MELLITUS WITHOUT COMPLICATIONS Qualifiers: Diabetes mellitus type: type 2 (4) Hypertension Code(s): I10 - ESSENTIAL (PRIMARY) HYPERTENSION (5) COPD exacerbation Code(s): J44.1 - CHRONIC OBSTRUCTIVE PULMONARY DISEASE W (ACUTE) EXACERBATION (6) Asthma attack Code(s): J45.901 - UNSPECIFIED ASTHMA WITH (ACUTE) EXACERBATION Assessment/Plan A/P: 81 yo woman DM, HTN, CAD, COPD/Asthma who presented with hypercapnic respiratory failure post EGD c/f aspiration pneumonitis triggering acute COPD/ asthma exacerbation -Quick steroid taper will give 40 prednisone tonight and wean to 20mg tomorrow -likely non infectious aspiration pneumonitis with reactive leukocytosis but agree with ABX coverage and de escalation AYAAN -HUONG q4hrs -NIPPV as needed -serial ABGs -BP control -glucose control -DNR -cont malignancy w/u per GI -DVT prophylaxis Boerem ACNP Pulm/CCM CCT: 35m
--- NOTE | 2017-06-16 21:54 | EKG ---
Test Reason : Blood Pressure : / mmHG Vent. Rate : 124 BPM Atrial Rate : 124 BPM P-R Int : 166 ms QRS Dur : 090 ms QT Int : 304 ms P-R-T Axes : 080 058 086 degrees QTc Int : 436 ms POOR DATA QUALITY, INTERPRETATION MAY BE ADVERSELY AFFECTED SINUS TACHYCARDIA NONSPECIFIC ST AND T WAVE ABNORMALITY ABNORMAL ECG WHEN COMPARED WITH ECG OF 07-SEP-2007 05:42, VENT. RATE HAS INCREASED BY 65 BPM T WAVE INVERSION NO LONGER EVIDENT IN INFERIOR LEADS NONSPECIFIC T WAVE ABNORMALITY NOW EVIDENT IN LATERAL LEADS BASELINE ARTIFACTS REPEAT EKG IF CLINICALLY INDICATED Confirmed by LINDA ESTES MD ([id number]) on 06/16/2017 9:54:23 PM Referred By: Confirmed By:LINDA ESTES MD
[2017-06-16] MEDS ORDERED: INSULIN DETEMIR 100 UNITS/ML MDV SQ SCH (22:00)
[2017-06-16] MEDS ORDERED: CHLORHEXIDINE GLUCONATE 4% CLEANSER FOR DECOLONIZATION TP SCH (22:00)
[2017-06-16] MEDS ORDERED: ATORVASTATIN CA 40 MG TABLET (FP) PO SCH (22:00)
[2017-06-17] MEDS: ALBUTEROL SO4 0.083% IH SOL 2.5 MG/3 ML VIAL.NEB. NEB SCH ×2 (05:24→11:54)
[2017-06-17] MEDS: INSULIN SLIDING SCALE (NOVOLOG) 1 VIAL SQ SCH ×4 (06:22→22:12)
[2017-06-17 06:30] LABS: MCH 27.7 pg (25.7-33.7); MCHC 32.3 g/dl (32.0-36.0); MEAN CELL VOLUME 85.7 fl (80-96); MEAN PLT VOLUME 8.7 fl (7.5-11.1); PLATELET COUNT 328 K/MM3 (134-434); WHITE BLOOD COUNT 20.8 K/mm3 (4.0-10.0)
[2017-06-17 06:43] LABS: INR 1.12 (0.82-1.09); PROTHROMBIN TIME (PATIENT) 12.6 SEC (9.98-11.88)
[2017-06-17 06:55] LABS: ANION GAP 10 (8-16); CALCIUM 8.9 mg/dL (8.5-10.1); CO2 26 mmol/L (21-32); GLUCOSE,RANDOM 292 mg/dL (74-106); MAGNESIUM 2.2 mg/dL (1.8-2.4)
[2017-06-17 06:59] LABS: ALK PHOS 76 U/L (45-117); BILIRUBIN,TOTAL 0.4 mg/dL (0.2-1.0); CREATININE 1.4 mg/dL (0.55-1.02); PHOSPHOROUS 2.7 mg/dL (2.5-4.9); SGOT/AST 16 U/L (15-37); SGPT/ALT 23 U/L (12-78); TOT PROT 6.2 g/dl (6.4-8.2)
[2017-06-17 07:14] LABS: CPK 120 IU/L (26-192); TROPONIN I < 0.02 ng/ml (0.00-0.05)
--- NOTE | 2017-06-17 08:00 | PN ---
Physical Exam: SUBJECTIVE: Patient seen and examined by me this AM - No major events overnight. Complaining of mild L anterior, band-like chest pain w/ no radiation. Endorses mild cough non-productive cough w/ improving dyspnea. Constipated at baseline. Denies GUZMAN/dizziness, nasal congestion, throat pain, palpitations, orthopnea, N/V, abdominal pain, LE edema, dysuria or diarrhea - Uptrending WBC count 19.4 -> 20.8. HgB downtrending 12.2 -> 10.5 - ABG improved last night 7.16/66/482/23 -> 7.27/50/148/22 - BUN/Cr uptrending 29/1.1 -> 3.9/1.4 PM: - Elevated Trop 0.75. Serial trops, EKG ordered. OBJECTIVE: Vital Signs Intake & Output 06/14/17 06/15/17 06/16/17 06/17/17 23:59 23:59 23:59 23:59 Intake Total 300 Output Total 150 Balance -150 300 Weight 54.703 kg 53.4 kg Period Temp Pulse Resp BP Sys/Mcdowell Pulse Ox Last 24 Hr 97.4 F-98.7 F 80-107 17-34 94-155/36-110 96-100 GENERAL: The patient is awake, alert, and fully oriented, in no acute distress. Resting comfortably in bed on NC. HEAD: NCAT EYES: PERRL, extraocular movements intact, sclera anicteric, conjunctiva clear. No ptosis. ENT: Ears normal, nares patent, oropharynx clear without exudates, moist mucous membranes. NECK: Trachea midline, supple. LUNGS: Decreased breath sounds diffusely, no wheezes, no crackles, no accessory muscle use. HEART: Regular rate and rhythm, S1, S2 without murmur, rub or gallop. ABDOMEN: Soft, nontender, nondistended, normoactive bowel sounds, no guarding, no rebound, no hepatosplenomegaly, no masses. Mild suprapubic discomfort to deep palpation. EXTREMITIES: 2+ pulses, warm, well-perfused, no edema. NEUROLOGICAL: Cranial nerves II through XII grossly intact. Normal speech, gait not observed. SKIN: Actinic keratosis noted on R forearm. No other lesions noted. Warm, dry in all extremities. Laboratory Results - last 24 hr CBC, BMP 06/17/17 06:10 06/17/17 06:10 06/16/17 06/17/17 06/17/17 21:02 06:10 06:10 WBC 20.8 H RBC 3.77 Hgb 10.5 L D Hct 32.3 L D MCV 85.7 MCH 27.7 MCHC 32.3 RDW 14.0 Plt Count 328 D MPV 8.7 PT with INR 12.60 H INR 1.12 Puncture Site Right radial ABG pH 7.27 L ABG pCO2 at Pt Temp 50.1 H D ABG pO2 at Pt Temp 148.0 H D ABG HCO3 22.3 ABG O2 Sat (Measured) 99.0 H ABG O2 Content 13.8 L ABG Base Excess -4.1 L [place] Test Positive O2 Delivery Device Nasal Oxygen Flow Rate 4l PEEP 0.0 Sodium Potassium Chloride Carbon Dioxide Anion Gap BUN Creatinine Creat Clearance w eGFR Random Glucose Calcium Phosphorus Magnesium Total Bilirubin AST ALT Alkaline Phosphatase Creatine Kinase Troponin I Total Protein Albumin 06/17/17 06/17/17 06:10 06:10 WBC RBC Hgb Hct MCV MCH MCHC RDW Plt Count MPV PT with INR INR Puncture Site ABG pH ABG pCO2 at Pt Temp ABG pO2 at Pt Temp ABG HCO3 ABG O2 Sat (Measured) ABG O2 Content ABG Base Excess [place] Test O2 Delivery Device Oxygen Flow Rate PEEP Sodium 142 Potassium 4.3 Chloride 106 Carbon Dioxide 26 Anion Gap 10 BUN 39 H D Creatinine 1.4 H D Creat Clearance w eGFR 36.00 Random Glucose 292 H D Calcium 8.9 Phosphorus 2.7 Magnesium 2.2 Total Bilirubin 0.4 D AST 16 D ALT 23 Alkaline Phosphatase 76 D Creatine Kinase 120 Troponin I < 0.02 Total Protein 6.2 L Albumin 3.0 L Active Medications Generic Name Dose Route Start Last Admin Trade Name Freq PRN Reason Stop Dose Admin Acetaminophen 650 mg 06/16/17 19:52 06/16/17 20:13 Tylenol - PO 650 mg Q6H PRN Administration FEVER OR PAIN Albuterol Sulfate 1 amp 06/16/17 18:00 06/17/17 05:24 Ventolin 0.083% Nebulizer Soln - NEB 1 amp QIDR [facility] Administration Atorvastatin Calcium 40 mg 06/16/17 22:00 06/16/17 21:31 Lipitor - PO 40 mg HS [facility] Administration Chlorhexidine Gluconate 1 applic 06/16/17 22:00 06/16/17 21:33 Hibiclens For Decolonization - TP 1 applic HS [facility] Administration Folic Acid 1 mg 06/17/17 10:00 Folic Acid - PO DAILY [facility] Azithromycin 500 mg/ Dextrose 250 mls @ 250 mls/hr 06/16/17 15:15 06/16/17 15: 52 IVPB 250 mls/hr DAILY [facility] Administration Insulin Aspart 1 vial 06/16/17 16:30 06/17/17 06:22 Novolog Vial Sliding Scale - SQ 6 units ACHS [facility] Administration Protocol Insulin Detemir 30 units 06/16/17 22:00 06/16/17 21:31 Levemir Vial SQ 30 units HS [facility] Administration Isosorbide Mononitrate 60 mg 06/17/17 10:00 Imdur - PO DAILY [facility] Losartan Potassium 100 mg 06/17/17 10:00 Cozaar - PO DAILY [facility] Memantine 10 mg 06/16/17 22:00 06/16/17 21:31 Namenda - PO 10 mg BID [facility] Administration Metoprolol Succinate 50 mg 06/16/17 14:56 06/16/17 15:44 Toprol Xl - PO Not Given DAILY [facility] Mupirocin 1 applic 06/16/17 22:00 06/16/17 21:32 Bactroban Ointment (For Decolonization) - NS 06/21/17 21:59 1 applic BID [facility] Administration Prednisone 20 mg 06/17/17 10:00 Deltasone - PO DAILY [facility] No pending micro CXR (06/17) - Mild congestive changes. Pleural thickening. 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 Rate of 97. Qt 457. Inferior-lateral TWIs, borderline ST depressions. No pathologic Q-waves of ST-elevations noted. ASSESSMENT/PLAN: 81 yo pmh of DM, HTN, CAD s/p stent, COPD/asthma who presented in acute hypercapnic respiratory failure after outpt EGD, w/ suspicion for aspiration pneumonitis triggering acute COPD/asthma exacerbation. PT much improved w/ NIPPV , inhaled bronchodilators, steroids, w/ AM ABG of 7.39/40/78/24, w/ resolved hypercarbia. Now w/ elevated tropI of 0.75 and prior EKG notable for possible inferio-lateral ischemia. Plan for follow-up EKG, serial trops, ASA/heparin and continuation of home cardiac meds. Will transfer to Telemetry today. Cardiology following. #Neuro -Monitor MS -Memantine 10 mg PO BID - Tylenol 650mg PRN for fever or pain #Cardiac - f/u EKG. Prior EKG w/ infero-lateral ischemic changes - BNP 274 - Trops 0.2 -> 0.2 -> 0.75 (06/17 PM). Trend trops - Echo w/ restrictive cardiomyopathy, - ASA, plavix - Imdur 60 mg PO - Atorvastatin 40mg PO - Toprol 50 mg PO daily - Losartan 100 mg PO daily - Consider heparin gtt if EKG notable for acute ischemic changes #Pulm Acute hypercapneic respiratory failure - AM ABG much improved 7.39/40/78/24 - O2 2L NC PRN. Titrate to >94%. Bipap as needed. - Duonebs - Ventolin PRN - Solumedrol 40mg IV. Taper tomorrow. #ID - Azithromycin for anti-inflammatory properties w/ suspicion for aspiration pneumonitis -f/u blood cultures #Renal - BUN/Cr uptrending 29/1.1 -> 3.9/1.4 -Strict Is&Os -Daily BMPs, Monitor lytes #Heme - Trend H/H. Transfuse at <7 - ASA, plavix - Consider Heparin gtt following EKG results #Endo -[facility] -ISS #GI - F/u biopsy results - Senna, Colace for constipation #FEN -Fluids: PO fluids -Electrolytes: Daily BMPs, Trend BUN/Cr -Nutrition: Diabetic diet #PPX -SubQ Heparin for DVT ppx -PPI for GI ppx #Dispo - Dispo to telemetry for further management given clinical improvement. Anuel Esposito, PGY1 Plan discussed with attending, Dr. Joy Visit type - Emergency Visit Emergency Visit: No - New Patient This patient is new to me today: Yes Date on this admission: 06/17/17 - Critical Care Critical Care patient: Yes Total Critical Care Time (in minutes): 35 Critical Care Statement: The care of this patient involved high complexity decision making to prevent further life threatening deterioration of the patient 's condition and/or to evaluate & treat vital organ system(s) failure or risk of failure.
[2017-06-17] MEDS ORDERED: FUROSEMIDE 40 MG/4 ML INJECTABLE VIAL IVPUSH ONE (08:25)
--- NOTE | 2017-06-17 08:28 | PN ---
Progress Note, Physician History of Present Illness: c/o chest pain - Current Medication List Current Medications: Active Medications Acetaminophen (Tylenol -) 650 mg PO Q6H PRN PRN Reason: FEVER OR PAIN Last Admin: 06/16/17 20:13 Dose: 650 mg Albuterol Sulfate (Ventolin 0.083% Nebulizer Soln -) 1 amp NEB QIDR [facility] Last Admin: 06/17/17 05:24 Dose: 1 amp Atorvastatin Calcium (Lipitor -) 40 mg PO HS [facility] Last Admin: 06/16/17 21:31 Dose: 40 mg Chlorhexidine Gluconate (Hibiclens For Decolonization -) 1 applic TP HS [facility] Last Admin: 06/16/17 21:33 Dose: 1 applic Folic Acid (Folic Acid -) 1 mg PO DAILY [facility] Furosemide (Lasix Injection -) 40 mg IVPUSH ONCE ONE Stop: 06/17/17 08:26 Azithromycin 500 mg/ Dextrose 250 mls @ 250 mls/hr IVPB DAILY [facility] Last Admin: 06/16/17 15:52 Dose: 250 mls/hr Insulin Aspart (Novolog Vial Sliding Scale -) 1 vial SQ ACHS [facility] PRN Reason: Protocol Last Admin: 06/17/17 06:22 Dose: 6 units Insulin Detemir (Levemir Vial) 30 units SQ HS [facility] Last Admin: 06/16/17 21:31 Dose: 30 units Isosorbide Mononitrate (Imdur -) 60 mg PO DAILY [facility] Losartan Potassium (Cozaar -) 100 mg PO DAILY [facility] Memantine (Namenda -) 10 mg PO BID [facility] Last Admin: 06/16/17 21:31 Dose: 10 mg Metoprolol Succinate (Toprol Xl -) 50 mg PO DAILY [facility] Last Admin: 06/16/17 15:44 Dose: Not Given Mupirocin (Bactroban Ointment (For Decolonization) -) 1 applic NS BID [facility] Stop: 06/21/17 21:59 Last Admin: 06/16/17 21:32 Dose: 1 applic Prednisone (Deltasone -) 20 mg PO DAILY [facility] - Objective Vital Signs: Vital Signs Temperature 98.7 F 06/17/17 06:00 Pulse Rate 89 06/17/17 06:00 Respiratory Rate 17 06/17/17 06:00 Blood Pressure 138/46 06/17/17 06:00 O2 Sat by Pulse Oximetry (%) 98 06/16/17 20:06 Cardiovascular: Yes: Murmur, S1, S2 Respiratory: Yes: Rales (at the bases). No: Wheezes Gastrointestinal: Yes: Normal Bowel Sounds, Soft Edema: No Labs: CBC, BMP 06/17/17 06:10 06/17/17 06:10 INR, PTT INR 1.12 (0.82-1.09) 06/17/17 06:10 - ....Imaging X-ray: Report Reviewed Problem List - Problems (1) Acute hypercapnic respiratory failure Assessment/Plan: resp acidosis icu monitoring for resp status bipap serial abg nebulizer solumedrol protonix pulm scd abx monitor QTc interval while on abx Code(s): J96.02 - ACUTE RESPIRATORY FAILURE WITH HYPERCAPNIA (2) CAD (coronary artery disease) Assessment/Plan: recurrent chest pain follow ce ekg Code(s): I25.10 - ATHSCL HEART DISEASE OF [place] CORONARY ARTERY W/O ANG PCTRS Qualifiers: Coronary Disease-Associated Artery/Lesion type: [place] artery [place] vs. transplanted heart: [place] heart Associated angina: without angina Qualified Code(s): I25.10 - Atherosclerotic heart disease of [place] coronary artery without angina pectoris; I25.10 - Atherosclerotic heart disease of [place] coronary artery without angina pectoris; I25.10 - Atherosclerotic heart disease of [place] coronary artery without angina pectoris (3) COPD exacerbation Assessment/Plan: nebs steroids Code(s): J44.1 - CHRONIC OBSTRUCTIVE PULMONARY DISEASE W (ACUTE) EXACERBATION (4) Diabetes Assessment/Plan: bgm endo Code(s): E11.9 - TYPE 2 DIABETES MELLITUS WITHOUT COMPLICATIONS Qualifiers: Diabetes mellitus type: type 2 (5) Hypertension Assessment/Plan: Vital Signs Period Temp Pulse Resp BP Sys/Mcdowell Pulse Ox Last 24 Hr 97.4 F-98.7 F 80-130 10-44 94-218/36-110 96-100 Code(s): I10 - ESSENTIAL (PRIMARY) HYPERTENSION (6) CHF (congestive heart failure) Assessment/Plan: iv lasix echo Code(s): I50.9 - HEART FAILURE, UNSPECIFIED
[2017-06-17] MEDS ORDERED: ISOSORBIDE MONONITRATE 60 MG TAB.SR.24H (FP) PO SCH (10:00)
[2017-06-17] MEDS ORDERED: LOSARTAN POTASSIUM 50 MG TABLET (FP) PO SCH (10:00)
[2017-06-17] MEDS ORDERED: predniSONE 20 MG TABLET (UD) PO SCH (10:00)
[2017-06-17] MEDS ORDERED: FOLIC ACID 1 MG TABLET (FP) PO SCH (10:00)
[2017-06-17] MEDS: AZITHROMYCIN IVPB 500 MG in DEXTROSE 5%-WATER - 250 ML IVPB SCH (10:01)
[2017-06-17] MEDS: METOPROLOL SUCCINATE 50 MG TAB.SR.24H (FP) PO SCH (10:01)
[2017-06-17] MEDS: MEMANTINE HCL 10 MG TABLET (FP) PO SCH ×2 (10:01→22:17)
--- NOTE | 2017-06-17 10:16 | CON.GI ---
Consult Consult Specialty:: GI Referred by:: Dr Sneed Reason for Consultation:: Desaturation after procedure - History of Present Illness Chief Complaint: dyspnea History of Present Illness: 81 F with h/o HTN, DM, HLD, asthma who was seen in our ambulatory surgery center for endoscopy being done to evaluate relatively recent onset of gas// bloating and weight loss, with CT showing thickening of antrum. 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 As the procedure was concluding, she was noted to be desaturating. O2 sat at the beginning of the procedure was 97%. She dropped to 80 % and was bagged. Her sat came back up but she would repeatedly drop when resuscitation efforts stopped and her breathing was very labored. I sent her to the ER by ambulance and she was successfully managed. Currently in the ICU, comfortable and breathing easily. Able to speak and answer questions. - History Source History Provided By: Patient, Medical Record Limitations to Obtaining History: No Limitations - Past Medical History Cardio/Vascular: Yes: CAD, HTN, Hyperlipdemia Pulmonary: Yes: Asthma, COPD Gastrointestinal: Yes: Other (EGD noted with mass in stomach. ) - Alcohol/Substance Use Hx Alcohol Use: No - Smoking History Smoking history: Former smoker Have you smoked in the past 12 months: No If you are a former smoker, when did you quit?: 20 years ago Home Medications - Allergies Allergies/Adverse Reactions: Allergies Allergy/AdvReac Type Severity Reaction Status Date / Time No Known Allergies Allergy Unverified 06/16/17 13:25 - Home Medications Home Medications: Ambulatory Orders Amlodipine Besylate [Norvasc -] 2.5 mg PO DAILY 04/30/17 Aspirin [ASA -] 325 mg PO DAILY 04/30/17 Atorvastatin Ca [Lipitor] 80 mg PO HS 04/30/17 Cholecalciferol (Vitamin D3) [Vitamin D3] 2,000 unit PO DAILY 04/30/17 Docusate Sodium [Stool Softener] 100 mg PO BID 04/30/17 Folic Acid 1 mg PO DAILY 04/30/17 Insulin Glargine,Hum.rec.anlog [Lantus (nf)] 34 units SQ HS 04/30/17 Isosorbide Mononitrate [Isosorbide Mononitrate ER] 60 mg PO DAILY 04/30/17 Losartan Potassium 100 mg PO DAILY 04/30/17 Metoprolol Succinate [Toprol Xl] 50 mg PO DAILY 04/30/17 Tiotropium [place] [Spiriva] 1 inh IH DAILY 04/30/17 Acetaminophen [Tylenol Extra Strength] 500 mg PO HS 06/16/17 Insulin Aspart [Novolog] 0 unit SQ ASDIR PRN 06/16/17 Physical Exam-GI Vital Signs: Vital Signs Temperature 98.0 F 06/17/17 08:00 Pulse Rate 90 06/17/17 08:00 Respiratory Rate 18 06/17/17 08:00 Blood Pressure 164/59 06/17/17 08:00 O2 Sat by Pulse Oximetry (%) 100 06/17/17 09:00 Constitutional: Yes: Well Nourished, No Distress, Anxious HENT: Yes: Atraumatic Cardiovascular: Yes: Regular Rate and Rhythm Respiratory: Yes: Diminished (bilaterally) ...Auscultate: Yes: Normoactive Bowel Sounds Labs: CBC, BMP 06/17/17 06:10 06/17/17 06:10 INR, PTT INR 1.12 (0.82-1.09) 06/17/17 06:10 Imaging - Results Cat Scan: Report Reviewed (Thickened antrum and puio2oud with stranding of the mesentery) Assessment/Plan 1) Respiratory failure-managed and stable at this time. Management as per pulmonary. 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 Will likely need oncology consult at some point, possibly as opt. Clear liquid diet as she is nearly obstructed. Spoke with son at length. Goals of care will need to be established. 3) Can transfer to floor
--- NOTE | 2017-06-17 11:03 | PN ---
Teaching Attending Note Name of Resident: Anuel Esposito ATTENDING PHYSICIAN STATEMENT I saw and evaluated the patient. I reviewed the resident's note and discussed the case with the resident. I agree with the resident's findings and plan as documented. SUBJECTIVE: Pt seen and examined in the ICU. Breathing much improved today. ABG overnight showing improving hypercapnea. No cough or wheezing. OBJECTIVE: Last Vital Signs Temp Pulse Resp BP Pulse Ox 98.2 F 85 21 143/54 100 06/17/17 10:00 06/17/17 10:00 06/17/17 10:00 06/17/17 10:00 06/17/17 09:00 Intake & Output 06/14/17 06/15/17 06/16/17 06/17/17 23:59 23:59 23:59 23:59 Intake Total 300 Output Total 150 Balance -150 300 Weight 120 lb 9.6 oz 117 lb 11.629 oz Gen: mildly tachypneic at rest Heart: RRR Lung: distant breath sounds, no wheezes Abd: soft, nontender Ext: no edema CBC, BMP 06/17/17 06:10 06/17/17 06:10 ABG Results ABG pH 7.27 (7.35-7.45) L 06/16/17 21:02 ABG pCO2 at Pt Temp 50.1 mmHg (35-45) H D 06/16/17 21:02 ABG pO2 at Pt Temp 148.0 mmHg (68-100) H D 06/16/17 21:02 ABG HCO3 22.3 meq/L (22-26) 06/16/17 21:02 ABG O2 Sat (Measured) 99.0 % (90-98.9) H 06/16/17 21:02 ABG O2 Content 13.8 % vol (15-22) L 06/16/17 21:02 ABG Base Excess -4.1 meq/l (-2-2) L 06/16/17 21:02 Active Medications Acetaminophen (Tylenol -) 650 mg PO Q6H PRN PRN Reason: FEVER OR PAIN Last Admin: 06/16/17 20:13 Dose: 650 mg Albuterol Sulfate (Ventolin 0.083% Nebulizer Soln -) 1 amp NEB QIDR [facility] Last Admin: 06/17/17 05:24 Dose: 1 amp Atorvastatin Calcium (Lipitor -) 40 mg PO HS [facility] Last Admin: 06/16/17 21:31 Dose: 40 mg Chlorhexidine Gluconate (Hibiclens For Decolonization -) 1 applic TP HS [facility] Last Admin: 06/16/17 21:33 Dose: 1 applic Folic Acid (Folic Acid -) 1 mg PO DAILY [facility] Last Admin: 06/17/17 10:01 Dose: 1 mg Azithromycin 500 mg/ Dextrose 250 mls @ 250 mls/hr IVPB DAILY [facility] Last Admin: 06/17/17 10:01 Dose: 250 mls/hr Insulin Aspart (Novolog Vial Sliding Scale -) [address] [facility] PRN Reason: Protocol Last Admin: 06/17/17 06:22 Dose: 6 units Insulin Detemir (Levemir Vial) 30 units SQ [facility] Last Admin: 06/16/17 21:31 Dose: 30 units Isosorbide Mononitrate (Imdur -) 60 mg PO DAILY [facility] Last Admin: 06/17/17 10:01 Dose: 60 mg Losartan Potassium (Cozaar -) 100 mg PO DAILY [facility] Last Admin: 06/17/17 10:00 Dose: 100 mg Memantine (Namenda -) 10 mg PO BID [facility] Last Admin: 06/17/17 10:01 Dose: 10 mg Metoprolol Succinate (Toprol Xl -) 50 mg PO DAILY [facility] Last Admin: 06/17/17 10:01 Dose: 50 mg Mupirocin (Bactroban Ointment (For Decolonization) -) 1 applic NS BID [facility] Stop: 06/21/17 21:59 Last Admin: 06/16/17 21:32 Dose: 1 applic Prednisone (Deltasone -) 20 mg PO DAILY [facility] Last Admin: 06/17/17 10:00 Dose: 20 mg ASSESSMENT AND PLAN: Acute Hypercapneic Respiratory Failure Acute COPD Exacerbation HTN DM CAD - continue medrol/prednisone 40mg daily x 5 days total - inhaled bronchodilators standing and PRN - empiric antibiotics - O2 to keep SpO2 >90% - BiPAP as needed to assist in work of breathing - check ABG - DVT prophylaxis - can monitor on floor if ABG continues to improve critical care time spent in reviewing chart, evaluating patient and formulating plan 35 min
[2017-06-17 11:15] LABS: ARTERIAL BLD GAS O2 SATURATION 96.6 % (90-98.9); ARTERIAL BLOOD GAS BASE EXCESS -0.5 meq/l (-2-2); ARTERIAL BLOOD GAS HCO3 23.8 meq/L (22-26); ARTERIAL BLOOD GAS PO2 78.1 mmHg (68-100); ARTERIAL BLOOD GAS pH 7.39 (7.35-7.45)
[2017-06-17 11:16] LABS: ALLENS TEST POSITIVE; ART PUNCT SITE RIGHT RADIAL; LPM/O2% 2LPM; PT. ON O2? YES; TYPE OF O2 NASAL
[2017-06-17] MEDS ORDERED: PT OWN MED DRAWER 7, Y5N ONE (11:19)
[2017-06-17] MEDS ORDERED: INSULIN (NOVOLOG) ASPART 100 UNITS/ML 10ML VIAL ONE (11:49)
--- NOTE | 2017-06-17 11:49 | EKG ---
Test Reason : Blood Pressure : / mmHG Vent. Rate : 097 BPM Atrial Rate : 097 BPM P-R Int : 166 ms QRS Dur : 086 ms QT Int : 360 ms P-R-T Axes : 070 055 036 degrees QTc Int : 457 ms NORMAL SINUS RHYTHM POSSIBLE LEFT ATRIAL ENLARGEMENT ABNORMAL ECG WHEN COMPARED WITH ECG OF 16-JUN-2017 13:23, T WAVE INVERSION NOW EVIDENT IN INFERIOR LEADS NONSPECIFIC T WAVE ABNORMALITY, WORSE IN LATERAL LEADS Confirmed by ELMA MIRELES, JOE ([id number]) on 06/17/2017 11:48:52 AM Referred By: Confirmed By:JOE WILLS MD
[2017-06-17] MEDS: MUPIROCIN 2% TOPICAL OINTMENT FOR DECOLONIZATION NS SCH ×2 (11:54→22:12)
[2017-06-17] MEDS ORDERED: ALBUTEROL SO4 2.5/IPRATROPIUM 0.5 INH SOL 3 ML VIAL.NEB. NEB PRN ×2 (12:15→19:21)
[2017-06-17] MEDS ORDERED: ALBUTEROL SO4 0.083% IH SOL 2.5 MG/3 ML VIAL.NEB. NEB PRN ×2 (12:15→19:21)
[2017-06-17 13:04] LABS: MCH 26.9 pg (25.7-33.7); MCHC 31.1 g/dl (32.0-36.0); MEAN CELL VOLUME 86.5 fl (80-96); MEAN PLT VOLUME 8.6 fl (7.5-11.1); PLATELET COUNT 316 K/MM3 (134-434); RDW 14.5 % (11.6-15.6); WHITE BLOOD COUNT 26.1 K/mm3 (4.0-10.0)
[2017-06-17] MEDS ORDERED: methylPREDNISolone NA SUCC 40 MG/1 ML VIAL IVPUSH SCH (13:15)
[2017-06-17 14:22] LABS: TROPONIN I 0.75 ng/ml (0.00-0.05)
--- NOTE | 2017-06-17 15:40 | PN ---
Progress Note, Physician Chief Complaint: less sob, cough. No cp tele neg History of Present Illness: She is an 81 year old female with h/o of asthma, diabetes, chol ,CAD s/p stent mid Lcx 2007 (other vessels nonobst, nlef on echo) follows with Dr Lul Solitario at [facility], carotid stenosis, abdominal pain who was undergoing EGD with propofol for sedation (found with mass) became severely short of breath with wheezing brought to the ER. No chest pain, palpitations, orthopnea, pnd or edema. Baseline exercise tolerance is good. Given asthma treatment and bipap in ER with improvement. Echo 06/16/17 nlef, TDS mild , sev MAC, mild pericardial effusion. - Current Medication List Current Medications: Active Medications Acetaminophen (Tylenol -) 650 mg PO Q6H PRN PRN Reason: FEVER OR PAIN Last Admin: 06/16/17 20:13 Dose: 650 mg Albuterol Sulfate (Ventolin 0.083% Nebulizer Soln -) 1 amp NEB Q4H PRN PRN Reason: Dyspnea Albuterol/Ipratropium (Duoneb -) 1 amp NEB Q6H PRN PRN Reason: SHORTNESS OF BREATH Atorvastatin Calcium (Lipitor -) 40 mg PO HS [facility] Last Admin: 06/16/17 21:31 Dose: 40 mg Chlorhexidine Gluconate (Hibiclens For Decolonization -) 1 applic TP HS [facility] Last Admin: 06/16/17 21:33 Dose: 1 applic Folic Acid (Folic Acid -) 1 mg PO DAILY [facility] Last Admin: 06/17/17 10:01 Dose: 1 mg Heparin Sodium (Porcine) (Heparin -) 5,000 unit SQ BID [facility] Azithromycin 500 mg/ Dextrose 250 mls @ 250 mls/hr IVPB DAILY [facility] Last Admin: 06/17/17 10:01 Dose: 250 mls/hr Insulin Aspart (Novolog Vial Sliding Scale -) 1 vial SQ ACHS [facility] PRN Reason: Protocol Last Admin: 06/17/17 11:57 Dose: 6 units Insulin Detemir (Levemir Vial) 30 units SQ HS [facility] Last Admin: 06/16/17 21:31 Dose: 30 units Isosorbide Mononitrate (Imdur -) 60 mg PO DAILY [facility] Last Admin: 06/17/17 10:01 Dose: 60 mg Losartan Potassium (Cozaar -) 100 mg PO DAILY [facility] Last Admin: 06/17/17 10:00 Dose: 100 mg Memantine (Namenda -) 10 mg PO BID [facility] Last Admin: 06/17/17 10:01 Dose: 10 mg Methylprednisolone Sodium Succinate (Solu-Medrol -) 40 mg IVPUSH DAILY [facility] Last Admin: 06/17/17 14:07 Dose: 40 mg Metoprolol Succinate (Toprol Xl -) 50 mg PO DAILY [facility] Last Admin: 06/17/17 10:01 Dose: 50 mg Mupirocin (Bactroban Ointment (For Decolonization) -) 1 applic NS BID [facility] Stop: 06/21/17 21:59 Last Admin: 06/17/17 11:54 Dose: Not Given - Objective Vital Signs: Vital Signs Temperature 98.9 F 06/17/17 12:00 Pulse Rate 74 06/17/17 14:00 Respiratory Rate 20 06/17/17 14:00 Blood Pressure 149/48 06/17/17 14:00 O2 Sat by Pulse Oximetry (%) 97 06/17/17 14:50 Constitutional: Yes: No Distress, Calm Eyes: Yes: Conjunctiva Clear, EOM Intact HENT: Yes: Atraumatic, Normocephalic Neck: Yes: Trachea Midline Cardiovascular: Yes: Regular Rate and Rhythm Respiratory: Yes: Wheezes Gastrointestinal: Yes: Normal Bowel Sounds, Soft Extremities: Yes: WNL Edema: No Peripheral Pulses WNL: Yes Labs: CBC, BMP 06/17/17 12:55 06/17/17 06:10 INR, PTT INR 1.12 (0.82-1.09) 06/17/17 06:10 Problem List - Problems (1) CAD (coronary artery disease) Assessment/Plan: I believe that her acute hypercapneic respiratory failure is bronchospastic in nature, low likelihood of CHF in the setting of a negative CXR and normal bnp. would continue her HTN and angina medications. OK to hold her aspirin if further gastroenterologic procedures are planned. No cardiac contraindications to GI workup once she is stable from a pulmonary standpoint. Get records from Dr Lul Solitairo if any recent workup. would defer ischemia evaluation. Echo showed small pericardial effusion. No need for vyas at this point. will see as needed. call with questions. Code(s): I25.10 - ATHSCL HEART DISEASE OF [place] CORONARY ARTERY W/O ANG PCTRS Qualifiers: Coronary Disease-Associated Artery/Lesion type: [place] artery [place] vs. transplanted heart: [place] heart Associated angina: without angina Qualified Code(s): I25.10 - Atherosclerotic heart disease of [place] coronary artery without angina pectoris; I25.10 - Atherosclerotic heart disease of [place] coronary artery without angina pectoris; I25.10 - Atherosclerotic heart disease of [place] coronary artery without angina pectoris (2) Preop cardiovascular exam Assessment/Plan: No cardiac contraindications to surgery and GI workup if needed. She is at intermediate risk. Code(s): Z01.810 - ENCOUNTER FOR PREPROCEDURAL CARDIOVASCULAR EXAMINATION
[2017-06-17] MEDS ORDERED: ACETAMINOPHEN 325 MG TABLET (FP) PO PRN (19:21)
--- NOTE | 2017-06-17 19:48 | PN ---
Progress Note (short form) - Note Progress Note: Patient today was found to have elevated Troponins of 0.75. ICU Spray Operator, Dr. Adilene Owens spoke to cardiology who reports no intervention at this time due to high risk and mass found in the abdomen during her EGD. Patient's repeat troponin this evening is 1.88. Will continue to trend and will follow up with cardiology. EKG revealed no acute changes, (-) ST-T elevations or depressions.
[2017-06-17 19:49] LABS: TROPONIN I 1.85 ng/ml (0.00-0.05)
[2017-06-17] MEDS ORDERED: methylPREDNISolone NA SUCC 125 MG/2 ML VIAL IVPUSH STA (19:55)
[2017-06-17] MEDS ORDERED: SUMATRIPTAN SUCCINATE 6 MG/0.5 ML VIAL SQ ONE ×2 (20:00→21:00)
[2017-06-17] MEDS ORDERED: CHLORHEXIDINE GLUCONATE 4% CLEANSER FOR DECOLONIZATION TP SCH (22:00)
[2017-06-17] MEDS ORDERED: QUEtiapine FUMARATE 25 MG TABLET (FP) PO ONE (22:00)
[2017-06-17] MEDS ORDERED: ATORVASTATIN CA 40 MG TABLET (FP) PO SCH (22:00)
[2017-06-17] MEDS ORDERED: INSULIN DETEMIR 100 UNITS/ML MDV SQ SCH (22:00)
[2017-06-17] MEDS ORDERED: HEPARIN NA (PORCINE) 5,000 UNITS/ML 1ML VIAL SQ SCH (22:00)
[2017-06-17] MEDS ORDERED: diphenhydrAMINE HCL 25 MG CAPSULE (FP) PO SCH (22:00)
[2017-06-17] MEDS: HEPARIN NA (PORCINE) 5,000 UNITS/ML 1ML VIAL SQ SCH (22:11)
[2017-06-17 22:52] LABS: TROPONIN I 1.46 ng/ml (0.00-0.05)
[2017-06-18] MEDS ORDERED: HALOPERIDOL LACTATE 5 MG/ML IM ONE (00:30)
[2017-06-18] MEDS: INSULIN SLIDING SCALE (NOVOLOG) 1 VIAL SQ SCH ×4 (06:23→21:15)
--- NOTE | 2017-06-18 07:28 | PN ---
Physical Exam: SUBJECTIVE: Patient seen and examined by me this AM - No major overnight events. Pt complaining of mild SOB when ambulating, but no further dyspnea/SOB when lying in bed. Currently on RA. Anterior CP much improved. Denies GUZMAN/dizziness, palpitations, orthopnea, back/neck pain, N/V, abdominal pain, LE edema - Afebrile, elevated WBC count in setting of steroids. Complaining of mild, non- productive cough. - Trops elevated yesterday 0.75 -> 1.85 -> 1.21. EKG not suggestive of acute ischemia. Per cardiology, likely due to hypoxic respiratory failure. - Still for transfer to telemetry floors today given clinical improvement. OBJECTIVE: Vital Signs Intake & Output 06/15/17 06/16/17 06/17/17 06/18/17 23:59 23:59 23:59 23:59 Intake Total 1190 260 Output Total 150 450 Balance -150 740 260 Weight 54.703 kg 53.4 kg 53.524 kg Period Temp Pulse Resp BP Sys/[place] Pulse Ox Last 24 Hr 97.6 F-98.9 F 68-96 18-25 102-182/42-89 96-100 GENERAL: The patient is awake, alert, and fully oriented, in no acute distress. Resting comfortably in bed on RA. HEAD: NCAT EYES: PERRL, extraocular movements intact, sclera anicteric, conjunctiva clear. No ptosis. ENT: Ears normal, nares patent, oropharynx clear without exudates, moist mucous membranes. NECK: Trachea midline, supple. LUNGS: Bibasilar trace crackles, no wheezes, no accessory muscle use. HEART: Regular rate and rhythm, S1, S2 without murmur, rub or gallop. ABDOMEN: Soft, nontender, nondistended, normoactive bowel sounds, no guarding, no rebound, no hepatosplenomegaly, no masses. Mild suprapubic discomfort to deep palpation. EXTREMITIES: 2+ pulses, warm, well-perfused, no edema. NEUROLOGICAL: Cranial nerves II through XII grossly intact. Normal speech, gait not observed. SKIN: Actinic keratosis noted on R forearm. No other lesions noted. Warm, dry in all extremities. Laboratory Results - last 24 hr CBC, BMP 06/17/17 12:55 06/17/17 06:10 06/16/17 06/17/17 06/17/17 16:51 06:10 11:10 WBC RBC Hgb Hct MCV MCH MCHC RDW Plt Count MPV Neutrophils % Lymphocytes % Puncture Site Right radial ABG pH 7.39 ABG pCO2 at Pt Temp 40.4 ABG pO2 at Pt Temp 78.1 D ABG HCO3 23.8 ABG O2 Sat (Measured) 96.6 ABG O2 Content 13.4 L ABG Base Excess -0.5 Jacinto Test Positive O2 Delivery Device Nasal Oxygen Flow Rate 2lpm PEEP 0.0 POC Glucometer 206.89158 Hemoglobin A1c % 8.2 H Creatine Kinase Creatine Kinase Index CK-MB (CK-2) Troponin I 06/17/17 06/17/17 06/17/17 12:55 12:55 17:00 WBC 26.1 H RBC 3.75 Hgb 10.1 L Hct 32.5 MCV 86.5 MCH 26.9 MCHC 31.1 L RDW 14.5 Plt Count 316 MPV 8.6 Neutrophils % No Result Required. Lymphocytes % No Result Required. Puncture Site ABG pH ABG pCO2 at Pt Temp ABG pO2 at Pt Temp ABG HCO3 ABG O2 Sat (Measured) ABG O2 Content ABG Base Excess Jacinto Test O2 Delivery Device Oxygen Flow Rate PEEP POC Glucometer Hemoglobin A1c % Creatine Kinase 159 Creatine Kinase Index 4.2 CK-MB (CK-2) 6.714 H Troponin I 0.75 H* 1.88 H* 06/17/17 06/17/17 17:00 21:20 WBC RBC Hgb Hct MCV MCH MCHC RDW Plt Count MPV Neutrophils % Lymphocytes % Puncture Site ABG pH ABG pCO2 at Pt Temp ABG pO2 at Pt Temp ABG HCO3 ABG O2 Sat (Measured) ABG O2 Content ABG Base Excess [place] Test O2 Delivery Device Oxygen Flow Rate PEEP POC Glucometer Hemoglobin A1c % Creatine Kinase 175 214 H Creatine Kinase Index 4.1 3.9 CK-MB (CK-2) 7.247 H 8.375 H Troponin I 1.85 H* 1.46 H* Active Medications Generic Name Dose Route Start Last Admin Trade Name Freq PRN Reason Stop Dose Admin Acetaminophen 650 mg 06/17/17 19:21 Tylenol - PO Q6H PRN FEVER OR PAIN Albuterol Sulfate 1 amp 06/17/17 19:21 Ventolin 0.083% Nebulizer Soln - NEB Q4H PRN Dyspnea Albuterol/Ipratropium 1 amp 06/17/17 19:21 06/17/17 22:33 Duoneb - NEB 1 amp Q6H PRN Administration SHORTNESS OF BREATH Atorvastatin Calcium 40 mg 06/17/17 22:00 06/17/17 22:17 Lipitor - PO 40 mg HS [facility] Administration Chlorhexidine Gluconate 1 applic 06/17/17 22:00 06/17/17 22:11 Hibiclens For Decolonization - TP 1 applic HS [facility] Administration Folic Acid 1 mg 06/18/17 10:00 Folic Acid - PO DAILY [facility] Heparin Sodium (Porcine) 5,000 unit 06/17/17 22:00 06/17/17 22:11 Heparin - SQ 5,000 unit BID [facility] Administration Azithromycin 500 mg/ Dextrose 250 mls @ 250 mls/hr 06/18/17 10:00 IVPB DAILY [facility] Insulin Aspart 1 vial 06/17/17 22:00 06/18/17 06:23 Novolog Vial Sliding Scale - SQ Not Given ACHS [facility] Protocol Insulin Detemir 30 units 06/17/17 22:00 06/17/17 22:11 Levemir Vial SQ 30 units HS [facility] Administration Isosorbide Mononitrate 60 mg 06/18/17 10:00 Imdur - PO DAILY [facility] Losartan Potassium 100 mg 06/18/17 10:00 Cozaar - PO DAILY [facility] Memantine 10 mg 06/17/17 22:00 06/17/17 22:17 Namenda - PO 10 mg BID [facility] Administration Methylprednisolone Sodium Succinate 40 mg 06/18/17 10:00 Solu-Medrol - IVPUSH DAILY [facility] Metoprolol Succinate 50 mg 06/18/17 10:00 Toprol Xl - PO DAILY [facility] Mupirocin 1 applic 06/17/17 22:00 06/17/17 22:12 Bactroban Ointment (For Decolonization) - NS 06/21/17 21:59 1 applic BID [facility] Administration Microbiology 06/16/17 13:32 Blood - Peripheral Venous Blood Culture - Preliminary NO GROWTH OBTAINED AFTER 24 HOURS, INCUBATION TO CONTINUE FOR 4 DAYS. 06/16/17 13:32 Blood - Peripheral Venous Blood Culture - Preliminary NO GROWTH OBTAINED AFTER 24 HOURS, INCUBATION TO CONTINUE FOR 4 DAYS. Blood cx's pending (06/16) CXR (06/17) - Mild congestive changes. Pleural thickening. 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 Rate of 97. Qt 457. Inferior-lateral TWIs, borderline ST depressions. No pathologic Q-waves of ST-elevations noted. - F/u EKG w/ no-evidence of acute ST changes or TW abnormalities. ASSESSMENT/PLAN: 81 yo pmh of DM, HTN, CAD s/p stent, COPD/asthma who presented in acute hypercapnic respiratory failure after outpt EGD, w/ suspicion for aspiration pneumonitis triggering acute COPD/asthma exacerbation. Pt continues to improve, tolerating minimal O2 support w/ only mild SOB on ambulation. Chest pain improved. Trop elevation likely due to acute hypoxic respiaratory failure per cardiology. Cannot begin AC given recent EGD w/ Bx. Will transfer to Telemetry today. Cardiology following. #Neuro -Monitor MS -Memantine 10 mg PO BID - Tylenol 650mg PRN for fever or pain #Cardiac - f/u EKG. Prior EKG w/ infero-lateral ischemic changes - BNP 274 - Trops 0.75 -> 1.85 -> 1.21 (06/18). Likely 2/2 hypoxic RF - Echo w/ restrictive cardiomyopathy, - ASA, plavix as Outpt - Imdur 60 mg PO - Atorvastatin 40mg PO - Toprol 50 mg PO daily - Losartan 100 mg PO daily #Pulm Acute hypercapneic respiratory failure - O2 2L NC PRN. Titrate to >94%. Bipap as needed. - Spiriva PRN - ICS/LABA - Ventolin PRN - Solumedrol 40mg IV. Taper today. #ID - Azithromycin for anti-inflammatory properties w/ suspicion for aspiration pneumonitis -f/u blood cultures #Renal -Strict Is&Os -Daily BMPs, Monitor lytes - Trend BUN/Cr. Last Cr 1.4 (06/17) #Heme - Trend H/H. Transfuse at <7 - ASA, plavix as outpt #Endo -ACHS -ISS #GI - F/u biopsy results - Senna, Colace for constipation #FEN -Fluids: PO fluids -Electrolytes: Daily BMPs, Trend BUN/Cr -Nutrition: Diabetic diet #PPX -SubQ Heparin for DVT ppx -PPI for GI ppx #Dispo - Dispo to telemetry for further management given clinical improvement. Anuel Esposito, PGY1 Plan discussed with attending, Dr. Joy Visit type - Emergency Visit Emergency Visit: No - New Patient This patient is new to me today: No - Critical Care Critical Care patient: Yes Total Critical Care Time (in minutes): 35 Critical Care Statement: The care of this patient involved high complexity decision making to prevent further life threatening deterioration of the patient 's condition and/or to evaluate & treat vital organ system(s) failure or risk of failure.
[2017-06-18 07:36] LABS: MCH 27.2 pg (25.7-33.7); MCHC 32.4 g/dl (32.0-36.0); MEAN CELL VOLUME 83.9 fl (80-96); MEAN PLT VOLUME 8.3 fl (7.5-11.1); PLATELET COUNT 335 K/MM3 (134-434); RDW 14.4 % (11.6-15.6); WHITE BLOOD COUNT 28.6 K/mm3 (4.0-10.0)
[2017-06-18] MEDS ORDERED: PT OWN MED DRAWER 7, Y5N ONE ×2 (08:07→23:49)
[2017-06-18 08:16] LABS: ANION GAP 7 (8-16); CALCIUM 9.4 mg/dL (8.5-10.1); CO2 27 mmol/L (21-32); GLUCOSE,RANDOM 105 mg/dL (74-106); MAGNESIUM 2.3 mg/dL (1.8-2.4); PHOSPHOROUS 2.7 mg/dL (2.5-4.9); SGOT/AST 28 U/L (15-37); SGPT/ALT 28 U/L (12-78)
[2017-06-18 08:35] LABS: ALK PHOS 81 U/L (45-117); BILIRUBIN,TOTAL 0.4 mg/dL (0.2-1.0); CPK 231 IU/L (26-192); CREATININE 1.1 mg/dL (0.55-1.02); TOT PROT 6.5 g/dl (6.4-8.2)
[2017-06-18 08:38] LABS: TROPONIN I 1.21 ng/ml (0.00-0.05)
[2017-06-18 08:43] LABS: PLATELET ESTIMATE ADEQUATE (NORMAL); TOTAL CELLS COUNTED 100
[2017-06-18] MEDS: HEPARIN NA (PORCINE) 5,000 UNITS/ML 1ML VIAL SQ SCH ×2 (09:15→21:15)
[2017-06-18] MEDS: MEMANTINE HCL 10 MG TABLET (FP) PO SCH (09:16)
[2017-06-18] MEDS ORDERED: methylPREDNISolone NA SUCC 125 MG/2 ML VIAL ONE (09:23)
[2017-06-18] MEDS: MUPIROCIN 2% TOPICAL OINTMENT FOR DECOLONIZATION NS SCH (09:24)
[2017-06-18] MEDS ORDERED: METOPROLOL SUCCINATE 50 MG TAB.SR.24H (FP) PO SCH (10:00)
[2017-06-18] MEDS ORDERED: AZITHROMYCIN IVPB 500 MG in DEXTROSE 5%-WATER - 250 ML IVPB SCH (10:00)
[2017-06-18] MEDS ORDERED: LOSARTAN POTASSIUM 50 MG TABLET (FP) PO SCH (10:00)
[2017-06-18] MEDS ORDERED: methylPREDNISolone NA SUCC 40 MG/1 ML VIAL IVPUSH SCH (10:00)
[2017-06-18] MEDS ORDERED: ISOSORBIDE MONONITRATE 60 MG TAB.SR.24H (FP) PO SCH (10:00)
[2017-06-18] MEDS ORDERED: FOLIC ACID 1 MG TABLET (FP) PO SCH (10:00)
[2017-06-18] MEDS ORDERED: INSULIN (NOVOLOG) ASPART 100 UNITS/ML 10ML VIAL ONE (11:16)
--- NOTE | 2017-06-18 11:38 | PN ---
Progress Note, Physician Chief Complaint: patient seen and examined sitting in chair looks more alert and oriented off the bipap saturation 95 % patient does not recall why she came to hospital spoke to daughter and son in detail all questions answered got one dose lasix cxr yesterday showed congestion - Current Medication List Current Medications: Active Medications Acetaminophen (Tylenol -) 650 mg PO Q6H PRN PRN Reason: FEVER OR PAIN Albuterol Sulfate (Ventolin 0.083% Nebulizer Soln -) 1 amp NEB Q4H PRN PRN Reason: Dyspnea Albuterol/Ipratropium (Duoneb -) 1 amp NEB Q6H PRN PRN Reason: SHORTNESS OF BREATH Last Admin: 06/17/17 22:33 Dose: 1 amp Atorvastatin Calcium (Lipitor -) 40 mg PO HS [facility] Last Admin: 06/17/17 22:17 Dose: 40 mg Chlorhexidine Gluconate (Hibiclens For Decolonization -) 1 applic TP HS [facility] Last Admin: 06/17/17 22:11 Dose: 1 applic Folic Acid (Folic Acid -) 1 mg PO DAILY [facility] Last Admin: 06/18/17 09:15 Dose: 1 mg Heparin Sodium (Porcine) (Heparin -) 5,000 unit SQ BID [facility] Last Admin: 06/18/17 09:15 Dose: 5,000 unit Azithromycin 500 mg/ Dextrose 250 mls @ 250 mls/hr IVPB DAILY [facility] Last Admin: 06/18/17 09:16 Dose: 250 mls/hr Insulin Aspart (Novolog Vial Sliding Scale -) 1 vial SQ ACHS [facility] PRN Reason: Protocol Last Admin: 06/18/17 11:30 Dose: 2 units Insulin Detemir (Levemir Vial) 30 units SQ HS [facility] Last Admin: 06/17/17 22:11 Dose: 30 units Isosorbide Mononitrate (Imdur -) 60 mg PO DAILY [facility] Last Admin: 06/18/17 09:16 Dose: 60 mg Losartan Potassium (Cozaar -) 100 mg PO DAILY [facility] Last Admin: 06/18/17 09:15 Dose: 100 mg Memantine (Namenda -) 10 mg PO BID [facility] Last Admin: 06/18/17 09:16 Dose: 10 mg Methylprednisolone Sodium Succinate (Solu-Medrol -) 40 mg IVPUSH DAILY [facility] Last Admin: 06/18/17 09:24 Dose: 40 mg Metoprolol Succinate (Toprol Xl -) 50 mg PO DAILY [facility] Last Admin: 06/18/17 09:16 Dose: 50 mg Mupirocin (Bactroban Ointment (For Decolonization) -) 1 applic NS BID [facility] Stop: 06/21/17 21:59 Last Admin: 06/18/17 09:24 Dose: 1 applic - Objective Vital Signs: Vital Signs Temperature 98.2 F 06/18/17 06:00 Pulse Rate 67 06/18/17 10:32 Respiratory Rate 18 06/18/17 09:31 Blood Pressure 170/62 06/18/17 10:00 O2 Sat by Pulse Oximetry (%) 94 L 06/18/17 10:32 Constitutional: Yes: Calm Cardiovascular: Yes: Regular Rate and Rhythm, S1, S2 Respiratory: Yes: Diminished, Other (no wheezing) Gastrointestinal: Yes: Normal Bowel Sounds, Soft Edema: No Psychiatric: Yes: Alert, Oriented (to name) Labs: CBC, BMP 06/18/17 07:25 06/18/17 07:25 INR, PTT INR 1.12 (0.82-1.09) 06/17/17 06:10 Problem List - Problems (1) Acute hypercapnic respiratory failure Assessment/Plan: s/p hypercaarbic failure now improved current off bipap saturation in upper 90's on iv solumedrol 40mg emperic abx transfer to the floor (2) Diabetes Assessment/Plan: on levemir bgm sliding scale hga1c 8.2 Code(s): E11.9 - TYPE 2 DIABETES MELLITUS WITHOUT COMPLICATIONS Qualifiers: Diabetes mellitus type: type 2 (3) Hypertension Assessment/Plan: h/o CAD on toprol,losartan,imdur Code(s): I10 - ESSENTIAL (PRIMARY) HYPERTENSION (4) CAD (coronary artery disease) Assessment/Plan: statin BB, imdur, Code(s): I25.10 - ATHSCL HEART DISEASE OF [place] CORONARY ARTERY W/O ANG PCTRS Qualifiers: Coronary Disease-Associated Artery/Lesion type: [place] artery [place] vs. transplanted heart: [place] heart Associated angina: without angina Qualified Code(s): I25.10 - Atherosclerotic heart disease of [place] coronary artery without angina pectoris; I25.10 - Atherosclerotic heart disease of [place] coronary artery without angina pectoris; I25.10 - Atherosclerotic heart disease of [place] coronary artery without angina pectoris (5) Mass of duodenum Assessment/Plan: s/p EGD mass biopsied awaiting report Code(s): K31.89 - OTHER DISEASES OF STOMACH AND DUODENUM
--- NOTE | 2017-06-18 12:46 | PN ---
Teaching Attending Note Name of Resident: Anuel Esposito ATTENDING PHYSICIAN STATEMENT I saw and evaluated the patient. I reviewed the resident's note and discussed the case with the resident. I agree with the resident's findings and plan as documented. SUBJECTIVE: Patient seen and examined in the ICU. Feels that the breathing is a bit worse today. (+) [place]. Some dry cough. Intake & Output 06/15/17 06/16/17 06/17/17 06/18/17 23:59 23:59 23:59 23:59 Intake Total 1190 260 Output Total 150 450 Balance -150 740 260 Weight 120 lb 9.6 oz 117 lb 11.629 oz 118 lb Last Vital Signs Temp Pulse Resp BP Pulse Ox 98 F 64 18 182/53 94 L 06/18/17 12:00 06/18/17 12:00 06/18/17 12:00 06/18/17 12:00 06/18/17 10:32 Active Medications Acetaminophen (Tylenol -) 650 mg PO Q6H PRN PRN Reason: FEVER OR PAIN Albuterol Sulfate (Ventolin 0.083% Nebulizer Soln -) 1 amp NEB Q4H PRN PRN Reason: Dyspnea Atorvastatin Calcium (Lipitor -) 40 mg PO HS [facility] Last Admin: 06/17/17 22:17 Dose: 40 mg Chlorhexidine Gluconate (Hibiclens For Decolonization -) 1 applic TP HS [facility] Last Admin: 06/17/17 22:11 Dose: 1 applic Folic Acid (Folic Acid -) 1 mg PO DAILY [facility] Last Admin: 06/18/17 09:15 Dose: 1 mg Heparin Sodium (Porcine) (Heparin -) 5,000 unit SQ BID [facility] Last Admin: 06/18/17 09:15 Dose: 5,000 unit Azithromycin 500 mg/ Dextrose 250 mls @ 250 mls/hr IVPB DAILY [facility] [place] Last Admin: 06/18/17 09:16 Dose: 250 mls/hr Insulin Aspart (Novolog Vial Sliding Scale -) 1 vial SQ ACHS [facility] PRN Reason: Protocol Last Admin: 06/18/17 11:30 Dose: 2 units Insulin Detemir (Levemir Vial) 30 units SQ HS [facility] Last Admin: 06/17/17 22:11 Dose: 30 units Isosorbide Mononitrate (Imdur -) 60 mg PO DAILY [facility] Last Admin: 06/18/17 09:16 Dose: 60 mg Losartan Potassium (Cozaar -) 100 mg PO DAILY [facility] Last Admin: 06/18/17 09:15 Dose: 100 mg Methylprednisolone Sodium Succinate (Solu-Medrol -) 40 mg IVPUSH DAILY [facility] Last Admin: 06/18/17 09:24 Dose: 40 mg Metoprolol Succinate (Toprol Xl -) 50 mg PO DAILY [facility] Last Admin: 06/18/17 09:16 Dose: 50 mg Mupirocin (Bactroban Ointment (For Decolonization) -) 1 applic NS BID [facility] Stop: 06/21/17 21:59 Last Admin: 06/18/17 09:24 Dose: 1 applic Tiotropium [place] (Spiriva -) 1 puff IH DAILY [facility] Gen: mildly tachypneic at rest Heart: RRR Lung: distant breath sounds, no wheezes Abd: soft, nontender Ext: no edema Laboratory Results - last 24 hr 06/17/17 06/17/17 06/17/17 05:39 11:24 12:55 WBC 26.1 H RBC 3.75 Hgb 10.1 L Hct 32.5 MCV 86.5 MCH 26.9 MCHC 31.1 L RDW 14.5 Plt Count 316 MPV 8.6 Total Counted Neutrophils % No Result Required. Neutrophils % (Manual) Lymphocytes % No Result Required. Lymphocytes % (Manual) Monocytes % (Manual) Platelet Estimate Sodium Potassium Chloride Carbon Dioxide Anion Gap BUN Creatinine Creat Clearance w eGFR POC Glucometer [phone] Random Glucose Calcium Phosphorus Magnesium Total Bilirubin AST ALT Alkaline Phosphatase Creatine Kinase Creatine Kinase Index CK-MB (CK-2) Troponin I Total Protein Albumin 06/17/17 06/17/17 06/17/17 12:55 16:06 17:00 WBC RBC Hgb Hct MCV MCH MCHC RDW Plt Count MPV Total Counted Neutrophils % Neutrophils % (Manual) Lymphocytes % Lymphocytes % (Manual) Monocytes % (Manual) Platelet Estimate Sodium Potassium Chloride Carbon Dioxide Anion Gap BUN Creatinine Creat Clearance w eGFR POC Glucometer 256.46907 Random Glucose Calcium Phosphorus Magnesium Total Bilirubin AST ALT Alkaline Phosphatase Creatine Kinase 159 Creatine Kinase Index 4.2 CK-MB (CK-2) 6.714 H Troponin I 0.75 H* 1.88 H* Total Protein Albumin 06/17/17 06/17/1706/17/17 17:00 21:20 22:04 WBC RBC Hgb Hct MCV MCH MCHC RDW Plt Count MPV Total Counted Neutrophils % Neutrophils % (Manual) Lymphocytes % Lymphocytes % (Manual) Monocytes % (Manual) Platelet Estimate Sodium Potassium Chloride Carbon Dioxide Anion Gap BUN Creatinine Creat Clearance w eGFR POC Glucometer 216.61915 Random Glucose Calcium Phosphorus Magnesium Total Bilirubin AST ALT Alkaline Phosphatase Creatine Kinase 175 214 H Creatine Kinase Index 4.1 3.9 CK-MB (CK-2) 7.247 H 8.375 H Troponin I 1.85 H* 1.46 H* Total Protein Albumin 06/18/17 06/18/17 06/18/17 06:18 07:25 07:25 WBC 28.6 H RBC 3.97 Hgb 10.8 Hct 33.3 MCV 83.9 MCH 27.2 MCHC 32.4 RDW 14.4 Plt Count 335 MPV 8.3 Total Counted 100 Neutrophils % No Result Required. Neutrophils % (Manual) 87 H Lymphocytes % No Result Required. Lymphocytes % (Manual) 8 Monocytes % (Manual) 5 Platelet Estimate Adequate Sodium 143 Potassium 3.9 Chloride 109 H Carbon Dioxide 27 Anion Gap 7 L BUN 38 H Creatinine 1.1 H D Creat Clearance w eGFR 47.55 POC Glucometer 129.57214 Random Glucose 105 D Calcium 9.4 Phosphorus 2.7 Magnesium 2.3 Total Bilirubin 0.4 AST 28 D ALT 28 D Alkaline Phosphatase 81 Creatine Kinase 231 H Creatine Kinase Index 3.1 CK-MB (CK-2) 7.364 H Troponin I 1.21 H* Total Protein 6.5 Albumin 3.0 L ASSESSMENT AND PLAN: Acute Hypercapneic Respiratory Failure Acute COPD Exacerbation HTN DM CAD - Medrol - inhaled bronchodilators standing and PRN - Empiric antibiotics - O2 to keep SpO2 >90% - NIPPV as needed to assist in work of breathing - DVT prophylaxis - Floor Dr Jyo Critical care time spent in reviewing chart, evaluating patient and formulating plan 35 min
--- NOTE | 2017-06-18 13:04 | EKG ---
Test Reason : Blood Pressure : / mmHG Vent. Rate : 075 BPM Atrial Rate : 075 BPM P-R Int : 160 ms QRS Dur : 090 ms QT Int : 398 ms P-R-T Axes : 077 063 031 degrees QTc Int : 444 ms NORMAL SINUS RHYTHM MINIMAL VOLTAGE CRITERIA FOR LVH, MAY BE NORMAL VARIANT NONSPECIFIC ST ABNORMALITY ABNORMAL ECG WHEN COMPARED WITH ECG OF 17-JUN-2017 05:42, T WAVE INVERSION NO LONGER EVIDENT IN INFERIOR LEADS NONSPECIFIC T WAVE ABNORMALITY NO LONGER EVIDENT IN LATERAL LEADS Confirmed by SANTOSH WATSON MD ([id number]) on 06/18/2017 1:04:05 PM Referred By: VALERIY CORTEZ Confirmed By:SANTOSH WATSON MD
[2017-06-18] MEDS ORDERED: TIOTROPIUM BROMIDE 18 MCG/INH (DEVICE W/ 5 CAPSULES) IH SCH (14:00)
--- NOTE | 2017-06-18 14:17 | PN ---
Progress Note, Physician Chief Complaint: less sob, cough. No cp tele neg History of Present Illness: She is an 81 year old female with h/o of asthma, diabetes, chol ,CAD s/p stent mid Lcx 2007 (other vessels nonobst, nlef on echo) follows with Dr Lul Solitario at [facility], carotid stenosis, abdominal pain who was undergoing EGD with propofol for sedation (found with mass) became severely short of breath with wheezing brought to the ER. No chest pain, palpitations, orthopnea, pnd or edema. Baseline exercise tolerance is good. Given asthma treatment and bipap in ER with improvement. Echo 06/16/17 nlef, TDS mild , sev MAC, mild pericardial effusion. Noted 06/17/17 with elevated troponin. No chest pain or ECG changes. - Current Medication List Current Medications: Active Medications Acetaminophen (Tylenol -) 650 mg PO Q6H PRN PRN Reason: FEVER OR PAIN Albuterol Sulfate (Ventolin 0.083% Nebulizer Soln -) 1 amp NEB Q4H PRN PRN Reason: Dyspnea Atorvastatin Calcium (Lipitor -) 40 mg PO HS [facility] Last Admin: 06/17/17 22:17 Dose: 40 mg Chlorhexidine Gluconate (Hibiclens For Decolonization -) 1 applic TP HS [facility] Last Admin: 06/17/17 22:11 Dose: 1 applic Folic Acid (Folic Acid -) 1 mg PO DAILY [facility] Last Admin: 06/18/17 09:15 Dose: 1 mg Heparin Sodium (Porcine) (Heparin -) 5,000 unit SQ BID [facility] Last Admin: 06/18/17 09:15 Dose: 5,000 unit Azithromycin 500 mg/ Dextrose 250 mls @ 250 mls/hr IVPB DAILY [facility] Last Admin: 06/18/17 09:16 Dose: 250 mls/hr Insulin Aspart (Novolog Vial Sliding Scale -) 1 vial SQ ACHS [facility] PRN Reason: Protocol Last Admin: 06/18/17 11:30 Dose: 2 units Insulin Detemir (Levemir Vial) 30 units SQ HS [facility] Last Admin: 06/17/17 22:11 Dose: 30 units Isosorbide Mononitrate (Imdur -) 60 mg PO DAILY [facility] Last Admin: 06/18/17 09:16 Dose: 60 mg Losartan Potassium (Cozaar -) 100 mg PO DAILY [facility] Last Admin: 06/18/17 09:15 Dose: 100 mg Methylprednisolone Sodium Succinate (Solu-Medrol -) 40 mg IVPUSH DAILY [facility] Last Admin: 06/18/17 09:24 Dose: 40 mg Metoprolol Succinate (Toprol Xl -) 50 mg PO DAILY [facility] Last Admin: 06/18/17 09:16 Dose: 50 mg Mupirocin (Bactroban Ointment (For Decolonization) -) 1 applic NS BID [facility] Stop: 06/21/17 21:59 Last Admin: 06/18/17 09:24 Dose: 1 applic Tiotropium [place] (Spiriva -) 1 puff IH DAILY [facility] - Objective Vital Signs: Vital Signs Temperature 98 F 06/18/17 12:00 Pulse Rate 64 06/18/17 12:00 Respiratory Rate 18 06/18/17 12:00 Blood Pressure 182/53 06/18/17 12:00 O2 Sat by Pulse Oximetry (%) 94 L 06/18/17 10:32 Constitutional: Yes: Well Nourished, No Distress, Calm Eyes: Yes: Conjunctiva Clear, EOM Intact HENT: Yes: Atraumatic, Normocephalic Neck: Yes: Trachea Midline Cardiovascular: Yes: Regular Rate and Rhythm Respiratory: Yes: Wheezes Gastrointestinal: Yes: Normal Bowel Sounds, Soft Musculoskeletal: Yes: WNL Extremities: Yes: WNL Edema: No Peripheral Pulses WNL: Yes Labs: CBC, BMP 06/18/17 07:25 06/18/17 07:25 INR, PTT INR 1.12 (0.82-1.09) 06/17/17 06:10 Problem List - Problems (1) CAD (coronary artery disease) Assessment/Plan: I believe that her acute hypercapneic respiratory failure is bronchospastic in nature, and the cause of her troponin leak from hypoxia rather than unstable coronary plaque. OK to hold her aspirin if further gastroenterologic procedures are planned. No cardiac contraindications to GI workup once she is stable from a pulmonary standpoint. Get records from Dr Lul Solitario if any recent workup. would defer ischemia evaluation/cath as she is not a candidate for dual antiplatelet therapy or PCI given her GI issues. Echo showed small pericardial effusion. No need for vyas at this point. will see as needed. call with questions. Code(s): I25.10 - ATHSCL HEART DISEASE OF [place] CORONARY ARTERY W/O ANG PCTRS Qualifiers: Coronary Disease-Associated Artery/Lesion type: [place] artery [place] vs. transplanted heart: [place] heart Associated angina: without angina Qualified Code(s): I25.10 - Atherosclerotic heart disease of [place] coronary artery without angina pectoris; I25.10 - Atherosclerotic heart disease of [place] coronary artery without angina pectoris; I25.10 - Atherosclerotic heart disease of [place] coronary artery without angina pectoris (2) Preop cardiovascular exam Assessment/Plan: No cardiac contraindications to surgery and GI workup if needed. She is at intermediate risk. Code(s): Z01.810 - ENCOUNTER FOR PREPROCEDURAL CARDIOVASCULAR EXAMINATION
[2017-06-18] MEDS ORDERED: ACETAMINOPHEN 325 MG TABLET (FP) PO PRN (14:33)
[2017-06-18] MEDS ORDERED: ALBUTEROL SO4 0.083% IH SOL 2.5 MG/3 ML VIAL.NEB. NEB PRN (14:33)
[2017-06-18] MEDS: ATORVASTATIN CA 40 MG TABLET (FP) PO SCH (21:15)
[2017-06-18] MEDS: INSULIN DETEMIR 100 UNITS/ML MDV SQ SCH (21:15)
[2017-06-18] MEDS ORDERED: MUPIROCIN 2% TOPICAL OINTMENT FOR DECOLONIZATION NS SCH (22:00)
[2017-06-18] MEDS ORDERED: CHLORHEXIDINE GLUCONATE 4% CLEANSER FOR DECOLONIZATION TP SCH (22:00)
[2017-06-18] MEDS: TIOTROPIUM BROMIDE 18 MCG/INH (DEVICE W/ 5 CAPSULES) IH SCH (23:45)
--- NOTE | 2017-06-19 00:40 | CONSULT ---
Consult Consult Specialty:: endocrine Referred by:: dr.saba dos santos Reason for Consultation:: diabetes mellitus - History of Present Illness Chief Complaint: respiratory difficulty History of Present Illness: 81 yr old female with h/o of asthma,Dm, HLD,CAD and carotid stenosis was getting a endoscopy for some malignancy work up today got propofol for procedure and then had severe asthmatic attack and was sent to ED , her sats were n 70 got nebulizers put on cpap still saturating in 70 range got 10mg decadron and 2mg.in the ER patien, has had long history dm,taking insulin dose without checking blood sugars,denies vision loss or syncope - History Source History Provided By: Patient, Family Member - Past Medical History Cardio/Vascular: Yes: CAD, HTN, Hyperlipdemia Pulmonary: Yes: Asthma, COPD Gastrointestinal: Yes: Other (EGD noted with mass in stomach. ) - Alcohol/Substance Use Hx Alcohol Use: No - Smoking History Smoking history: Former smoker Have you smoked in the past 12 months: No If you are a former smoker, when did you quit?: 20 years ago Home Medications - Allergies Allergies/Adverse Reactions: Allergies Allergy/AdvReac Type Severity Reaction Status Date / Time No Known Allergies Allergy Unverified 06/16/17 13:25 - Home Medications Home Medications: Ambulatory Orders Amlodipine Besylate [Norvasc -] 2.5 mg PO DAILY 04/30/17 Aspirin [ASA -] 325 mg PO DAILY 04/30/17 Atorvastatin Ca [Lipitor] 80 mg PO HS 04/30/17 Cholecalciferol (Vitamin D3) [Vitamin D3] 2,000 unit PO DAILY 04/30/17 Docusate Sodium [Stool Softener] 100 mg PO BID 04/30/17 Folic Acid 1 mg PO DAILY 04/30/17 Insulin Glargine,Hum.rec.anlog [Lantus (nf)] 34 units SQ HS 04/30/17 Isosorbide Mononitrate [Isosorbide Mononitrate ER] 60 mg PO DAILY 04/30/17 Losartan Potassium 100 mg PO DAILY 04/30/17 Metoprolol Succinate [Toprol Xl] 50 mg PO DAILY 04/30/17 Tiotropium [place] [Spiriva] 1 inh IH DAILY 04/30/17 Acetaminophen [Tylenol Extra Strength] 500 mg PO HS 06/16/17 Insulin Aspart [Novolog] 0 unit SQ ASDIR PRN 06/16/17 Review of Systems - Review of Systems Constitutional: reports: Weakness Eyes: reports: No Symptoms HENT: reports: No Symptoms Neck: reports: No Symptoms Cardiovascular: reports: Shortness of Breath Respiratory: reports: Exercise Intolerance, SOB on Exertion Gastrointestinal: reports: Bloating, Constipation, Nausea Genitourinary: reports: No Symptoms Breasts: reports: No Symptoms Reported Musculoskeletal: reports: Muscle Weakness Integumentary: reports: No Symptoms Neurological: reports: No Symptoms Physical Exam Vital Signs: Vital Signs Temperature 98.1 F 06/18/17 15:24 Pulse Rate 65 06/18/17 19:00 Respiratory Rate 18 06/18/17 19:00 Blood Pressure 180/73 06/18/17 19:00 O2 Sat by Pulse Oximetry (%) 98 06/18/17 16:30 Constitutional: Yes: Anxious Eyes: Yes: EOM Intact HENT: Yes: Normocephalic Neck: Yes: Trachea Midline Cardiovascular: Yes: Regular Rate and Rhythm Respiratory: Yes: CTA Bilaterally Gastrointestinal: Yes: Abdomen, Obese, Hypoactive Bowel Sounds, Palpable Mass ...Rectal Exam: Yes: Deferred Renal/: Yes: WNL Breast(s): Yes: WNL Musculoskeletal: Yes: WNL Extremities: Yes: WNL Edema: No Neurological: Yes: Alert, Oriented Labs: CBC, BMP 06/18/17 07:25 06/18/17 07:25 Problem List - Problems (1) Acute hypercapnic respiratory failure Code(s): J96.02 - ACUTE RESPIRATORY FAILURE WITH HYPERCAPNIA (2) Asthma attack Code(s): J45.901 - UNSPECIFIED ASTHMA WITH (ACUTE) EXACERBATION (3) CAD (coronary artery disease) Code(s): I25.10 - ATHSCL HEART DISEASE OF [place] CORONARY ARTERY W/O ANG PCTRS Qualifiers: Coronary Disease-Associated Artery/Lesion type: [place] artery [place] vs. transplanted heart: [place] heart Associated angina: without angina Qualified Code(s): I25.10 - Atherosclerotic heart disease of [place] coronary artery without angina pectoris; I25.10 - Atherosclerotic heart disease of [place] coronary artery without angina pectoris; I25.10 - Atherosclerotic heart disease of [place] coronary artery without angina pectoris (4) CHF (congestive heart failure) Code(s): I50.9 - HEART FAILURE, UNSPECIFIED (5) Diabetes Code(s): E11.9 - TYPE 2 DIABETES MELLITUS WITHOUT COMPLICATIONS Qualifiers: Diabetes mellitus type: type 2 Assessment/Plan Current Active Problems Acute hypercapnic respiratory failure (Acute) Asthma attack (Acute) CAD (coronary artery disease) (Acute) CHF (congestive heart failure) (Acute) COPD exacerbation (Acute) Diabetes (Acute) Hypertension (Acute) Mass of duodenum (Acute) Preop cardiovascular exam (Acute) Renal insufficiency, mild (Acute) Abnormal Lab Results 06/17/17 06/18/17 06/18/17 21:20 07:25 07:25 WBC 28.6 H Neutrophils % (Manual) 87 H Chloride 109 H Anion Gap 7 L BUN 38 H Creatinine 1.1 H D Creatine Kinase 214 H 231 H CK-MB (CK-2) 8.375 H 7.364 H Troponin I 1.46 H* 1.21 H* Albumin 3.0 L Laboratory Results - last 24 hr 06/16/17 06/17/17 06/17/17 21:10 05:39 11:24 WBC RBC Hgb Hct MCV MCH MCHC RDW Plt Count MPV Total Counted Neutrophils % Neutrophils % (Manual) Lymphocytes % Lymphocytes % (Manual) Monocytes % (Manual) Platelet Estimate Sodium Potassium Chloride Carbon Dioxide Anion Gap BUN Creatinine Creat Clearance w eGFR POC Glucometer 389.35892 310.41498 302.47968 Random Glucose Calcium Phosphorus Magnesium Total Bilirubin AST ALT Alkaline Phosphatase Creatine Kinase Creatine Kinase Index CK-MB (CK-2) Troponin I Total Protein Albumin 06/17/17 06/17/17 06/17/17 16:06 21:20 22:04 WBC RBC Hgb Hct MCV MCH MCHC RDW Plt Count MPV Total Counted Neutrophils % Neutrophils % (Manual) Lymphocytes % Lymphocytes % (Manual) Monocytes % (Manual) Platelet Estimate Sodium Potassium Chloride Carbon Dioxide Anion Gap BUN Creatinine Creat Clearance w eGFR POC Glucometer 256.40020 216.31146 Random Glucose Calcium Phosphorus Magnesium Total Bilirubin AST ALT Alkaline Phosphatase Creatine Kinase 214 H Creatine Kinase Index 3.9 CK-MB (CK-2) 8.375 H Troponin I 1.46 H* Total Protein Albumin 06/18/17 06/18/17 06/18/17 06:18 07:25 07:25 WBC 28.6 H RBC 3.97 Hgb 10.8 Hct 33.3 MCV 83.9 MCH 27.2 MCHC 32.4 RDW 14.4 Plt Count 335 MPV 8.3 Total Counted 100 Neutrophils % No Result Required. Neutrophils % (Manual) 87 H Lymphocytes % No Result Required. Lymphocytes % (Manual) 8 Monocytes % (Manual) 5 Platelet Estimate Adequate Sodium 143 Potassium 3.9 Chloride 109 H Carbon Dioxide 27 Anion Gap 7 L BUN 38 H Creatinine 1.1 H D Creat Clearance w eGFR 47.55 POC Glucometer 129.03007 Random Glucose 105 D Calcium 9.4 Phosphorus 2.7 Magnesium 2.3 Total Bilirubin 0.4 AST 28 D ALT 28 D Alkaline Phosphatase 81 Creatine Kinase 231 H Creatine Kinase Index 3.1 CK-MB (CK-2) 7.364 H Troponin I 1.21 H* Total Protein 6.5 Albumin 3.0 L 06/18/17 06/18/17 06/18/17 11:26 16:21 21:05 WBC RBC Hgb Hct MCV MCH MCHC RDW Plt Count MPV Total Counted Neutrophils % Neutrophils % (Manual) Lymphocytes % Lymphocytes % (Manual) Monocytes % (Manual) Platelet Estimate Sodium Potassium Chloride Carbon Dioxide Anion Gap BUN Creatinine Creat Clearance w eGFR POC Glucometer 201.32016 281 112 Random Glucose Calcium Phosphorus Magnesium Total Bilirubin AST ALT Alkaline Phosphatase Creatine Kinase Creatine Kinase Index CK-MB (CK-2) Troponin I Total Protein Albumin plan: bgm qid novolog insulin diabetic teaching instruction home glucose monitoring Current Medications Generic Name Dose Route Start Last Admin Trade Name Freq PRN Reason Stop Dose Admin Acetaminophen 650 mg 06/18/17 14:33 Tylenol - PO Q6H PRN FEVER OR PAIN Albuterol Sulfate 1 amp 06/18/17 14:33 Ventolin 0.083% Nebulizer Soln - NEB Q4H PRN Dyspnea Atorvastatin Calcium 40 mg 06/18/17 22:00 06/18/17 21:15 Lipitor - PO 40 mg HS [facility] Administration Folic Acid 1 mg 06/19/17 10:00 Folic Acid - PO DAILY [facility] Heparin Sodium (Porcine) 5,000 unit 06/18/17 22:00 06/18/17 21:15 Heparin - SQ 5,000 unit BID [facility] Administration Azithromycin 500 mg/ Dextrose 250 mls @ 250 mls/hr 06/19/17 10:00 IVPB DAILY [facility] Insulin Aspart 1 vial 06/18/17 16:30 06/18/17 21:15 Novolog Vial Sliding Scale - SQ Not Given ACHS [facility] Protocol Insulin Detemir 30 units 06/18/17 22:00 06/18/17 21:15 Levemir Vial SQ 30 units HS [facility] Administration Isosorbide Mononitrate 60 mg 06/19/17 10:00 Imdur - PO DAILY [facility] Losartan Potassium 100 mg 06/19/17 10:00 Cozaar - PO DAILY [facility] Methylprednisolone Sodium Succinate 40 mg 06/19/17 10:00 Solu-Medrol - IVPUSH DAILY [facility] Metoprolol Succinate 50 mg 06/19/17 10:00 Toprol Xl - PO DAILY [facility] Tiotropium [place] 1 puff 06/18/17 23:45 Spiriva - IH DAILY [facility]
[2017-06-19] MEDS: INSULIN SLIDING SCALE (NOVOLOG) 1 VIAL SQ SCH ×4 (06:10→21:32)
[2017-06-19 07:38] LABS: ANION GAP 9 (8-16); CALCIUM 9.2 mg/dL (8.5-10.1); CO2 30 mmol/L (21-32); CREATININE 0.9 mg/dL (0.55-1.02); GLUCOSE,RANDOM 109 mg/dL (74-106)
--- NOTE | 2017-06-19 08:51 | PN ---
Progress Note, Physician History of Present Illness: feels better no cp - Current Medication List Current Medications: Active Medications Acetaminophen (Tylenol -) 650 mg PO Q6H PRN PRN Reason: FEVER OR PAIN Albuterol Sulfate (Ventolin 0.083% Nebulizer Soln -) 1 amp NEB Q4H PRN PRN Reason: Dyspnea Atorvastatin Calcium (Lipitor -) 40 mg PO HS [facility] Last Admin: 06/18/17 21:15 Dose: 40 mg Folic Acid (Folic Acid -) 1 mg PO DAILY [facility] Heparin Sodium (Porcine) (Heparin -) 5,000 unit SQ BID [facility] Last Admin: 06/18/17 21:15 Dose: 5,000 unit Azithromycin 500 mg/ Dextrose 250 mls @ 250 mls/hr IVPB DAILY [facility] Insulin Aspart (Novolog Vial Sliding Scale -) 1 vial SQ ACHS [facility] PRN Reason: Protocol Last Admin: 06/19/17 06:10 Dose: Not Given Insulin Detemir (Levemir Vial) 30 units SQ HS [facility] Last Admin: 06/18/17 21:15 Dose: 30 units Isosorbide Mononitrate (Imdur -) 60 mg PO DAILY [facility] Losartan Potassium (Cozaar -) 100 mg PO DAILY [facility] Methylprednisolone Sodium Succinate (Solu-Medrol -) 40 mg IVPUSH DAILY [facility] Metoprolol Succinate (Toprol Xl -) 50 mg PO DAILY [facility] Tiotropium [place] (Spiriva -) 1 puff IH DAILY [facility] Last Admin: 06/18/17 23:45 Dose: 1 puff - Objective Vital Signs: Vital Signs Temperature 98.2 F 06/19/17 05:15 Pulse Rate 77 06/19/17 05:15 Respiratory Rate 16 06/19/17 05:15 Blood Pressure 145/92 06/19/17 05:15 O2 Sat by Pulse Oximetry (%) 98 06/18/17 21:00 Cardiovascular: Yes: S1, S2 Respiratory: Yes: Diminished, On Nasal O2 Gastrointestinal: Yes: Normal Bowel Sounds, Soft Edema: No Labs: CBC, BMP 06/18/17 07:25 06/19/17 06:45 INR, PTT INR 1.12 (0.82-1.09) 06/17/17 06:10 Problem List - Problems (1) Acute hypercapnic respiratory failure Assessment/Plan: current off bipap saturation in upper 90's on iv solumedrol 40mg--change to po emperic abx on tele Code(s): J96.02 - ACUTE RESPIRATORY FAILURE WITH HYPERCAPNIA (2) CAD (coronary artery disease) Assessment/Plan: recurrent chest pain trop trending down cardio consult noted--maybe demand ischemia ekg Code(s): I25.10 - ATHSCL HEART DISEASE OF [place] CORONARY ARTERY W/O ANG PCTRS Qualifiers: Coronary Disease-Associated Artery/Lesion type: [place] artery [place] vs. transplanted heart: [place] heart Associated angina: without angina Qualified Code(s): I25.10 - Atherosclerotic heart disease of [place] coronary artery without angina pectoris; I25.10 - Atherosclerotic heart disease of [place] coronary artery without angina pectoris; I25.10 - Atherosclerotic heart disease of [place] coronary artery without angina pectoris (3) COPD exacerbation Assessment/Plan: nebs steroids Code(s): J44.1 - CHRONIC OBSTRUCTIVE PULMONARY DISEASE W (ACUTE) EXACERBATION (4) Diabetes Assessment/Plan: bgm endo Code(s): E11.9 - TYPE 2 DIABETES MELLITUS WITHOUT COMPLICATIONS Qualifiers: Diabetes mellitus type: type 2 (5) Hypertension Assessment/Plan: Vital Signs Period Temp Pulse Resp BP Sys/[place] Pulse Ox Last 24 Hr 97.4 F-98.7 F 80-130 10-44 94-218/36-110 96-100 Code(s): I10 - ESSENTIAL (PRIMARY) HYPERTENSION (6) CHF (congestive heart failure) Assessment/Plan: lasix echo noted cxr Code(s): I50.9 - HEART FAILURE, UNSPECIFIED Assessment/Plan physical therapy snf
[2017-06-19 09:51] LABS: BASOPHIL 0.4 % (0-2.0); EOSINOPHIL 0.2 % (0-4.5); MCHC 31.7 g/dl (32.0-36.0); MEAN CELL VOLUME 85.1 fl (80-96); NEUTROPHILS 80.8 % (42.8-82.8); PLATELET COUNT 367 K/MM3 (134-434); RDW 14.5 % (11.6-15.6); WHITE BLOOD COUNT 22.6 K/mm3 (4.0-10.0)
[2017-06-19] MEDS ORDERED: methylPREDNISolone NA SUCC 40 MG/1 ML VIAL IVPUSH SCH (10:00)
[2017-06-19] MEDS ORDERED: TIOTROPIUM BROMIDE 18 MCG/INH (DEVICE W/ 5 CAPSULES) IH SCH (10:00)
[2017-06-19] MEDS: ISOSORBIDE MONONITRATE 60 MG TAB.SR.24H (FP) PO SCH (10:30)
[2017-06-19] MEDS: LOSARTAN POTASSIUM 50 MG TABLET (FP) PO SCH (10:30)
[2017-06-19] MEDS: FOLIC ACID 1 MG TABLET (FP) PO SCH (10:30)
[2017-06-19] MEDS: METOPROLOL SUCCINATE 50 MG TAB.SR.24H (FP) PO SCH (10:31)
[2017-06-19] MEDS: TIOTROPIUM BROMIDE 18 MCG/INH (DEVICE W/ 5 CAPSULES) IH SCH (10:31)
[2017-06-19] MEDS: HEPARIN NA (PORCINE) 5,000 UNITS/ML 1ML VIAL SQ SCH ×2 (10:31→21:32)
[2017-06-19] MEDS: predniSONE 20 MG TABLET (UD) PO SCH ×2 (10:32→21:32)
[2017-06-19] MEDS: AZITHROMYCIN IVPB 500 MG in DEXTROSE 5%-WATER - 250 ML IVPB SCH (10:32)
--- NOTE | 2017-06-19 12:01 | PN ---
Progress Note (short form) - Note Progress Note: Appears overall better. Breathing continues to improve. Some dry cough. Intake & Output 06/16/17 06/17/17 06/18/17 06/19/17 23:59 23:59 23:59 23:59 Intake Total 1190 1010 300 Output Total 150 450 Balance -184 569 8138 300 Weight 120 lb 9.6 oz 117 lb 11.629 oz 118 lb 122 lb Last Vital Signs Temp Pulse Resp BP Pulse Ox 98.2 F 68 16 145/92 97 06/19/17 05:15 06/19/17 10:05 06/19/17 05:15 06/19/17 05:15 06/19/17 10:05 Active Medications Acetaminophen (Tylenol -) 650 mg PO Q6H PRN PRN Reason: FEVER OR PAIN Albuterol Sulfate (Ventolin 0.083% Nebulizer Soln -) 1 amp NEB Q4H PRN PRN Reason: Dyspnea Atorvastatin Calcium (Lipitor -) 40 mg PO HS [facility] Last Admin: 06/18/17 21:15 Dose: 40 mg Folic Acid (Folic Acid -) 1 mg PO DAILY [facility] Last Admin: 06/19/17 10:30 Dose: 1 mg Heparin Sodium (Porcine) (Heparin -) 5,000 unit SQ BID [facility] Last Admin: 06/19/17 10:31 Dose: 5,000 unit Azithromycin 500 mg/ Dextrose 250 mls @ 250 mls/hr IVPB DAILY [facility] Last Admin: 06/19/17 10:32 Dose: 250 mls/hr Insulin Aspart (Novolog Vial Sliding Scale -) 1 vial SQ ACHS [facility] PRN Reason: Protocol Last Admin: 06/19/17 06:10 Dose: Not Given Insulin Detemir (Levemir Vial) 30 units SQ [facility] Last Admin: 06/18/17 21:15 Dose: 30 units Isosorbide Mononitrate (Imdur -) 60 mg PO DAILY [facility] Last Admin: 06/19/17 10:30 Dose: 60 mg Losartan Potassium (Cozaar -) 100 mg PO DAILY [facility] Last Admin: 06/19/17 10:30 Dose: 100 mg Metoprolol Succinate (Toprol Xl -) 50 mg PO DAILY [facility] Last Admin: 06/19/17 10:31 Dose: 50 mg Prednisone (Deltasone -) 20 mg PO BID [facility] Last Admin: 06/19/17 10:32 Dose: Not Given Tiotropium [place] (Spiriva -) 1 puff IH DAILY [facility] Last Admin: 06/19/17 10:31 Dose: 1 puff Gen: NAD Heart: RRR Lung: distant breath sounds, no wheezes Abd: soft, nontender Ext: no edema Laboratory Results - last 24 hr 06/16/17 06/18/17 06/18/17 21:10 11:26 16:21 WBC RBC Hgb Hct MCV MCH MCHC RDW Plt Count MPV Neutrophils % Lymphocytes % Monocytes % Eosinophils % Basophils % Sodium Potassium Chloride Carbon Dioxide Anion Gap BUN Creatinine POC Glucometer 389.84546 201.65138 281 Random Glucose Calcium 06/18/17 06/19/17 06/19/17 21:05 05:01 05:26 WBC RBC Hgb Hct MCV MCH MCHC RDW Plt Count MPV Neutrophils % Lymphocytes % Monocytes % Eosinophils % Basophils % Sodium Potassium Chloride Carbon Dioxide Anion Gap BUN Creatinine POC Glucometer 112 48 109 Random Glucose Calcium 06/19/17 06/19/17 06:45 09:20 WBC 22.6 H RBC 3.99 Hgb 10.8 Hct 34.0 MCV 85.1 MCH 27.0 MCHC 31.7 L RDW 14.5 Plt Count 367 MPV 9.0 Neutrophils % 80.8 D Lymphocytes % 11.5 D Monocytes % 7.1 Eosinophils % 0.2 D Basophils % 0.4 Sodium 142 Potassium 4.3 Chloride 103 Carbon Dioxide 30 Anion Gap 9 BUN 35 H Creatinine 0.9 POC Glucometer Random Glucose 109 H Calcium 9.2 ASSESSMENT AND PLAN: Acute Hypercapneic Respiratory Failure Acute COPD Exacerbation HTN DM CAD - Prednisone taper - inhaled bronchodilators standing and PRN - O2 to keep SpO2 >90% - Spiriva daily - Can add LABA/ICS upon discharge - No Pulmonary contraindication for D/C planning Dr Joy
[2017-06-19] MEDS: INSULIN DETEMIR 100 UNITS/ML MDV SQ SCH (21:32)
[2017-06-19] MEDS: ATORVASTATIN CA 40 MG TABLET (FP) PO SCH (21:32)
[2017-06-20] MEDS: INSULIN SLIDING SCALE (NOVOLOG) 1 VIAL SQ SCH ×4 (06:03→21:33)
[2017-06-20 07:44] LABS: BASOPHIL 0.2 % (0-2.0); MCH 27.1 pg (25.7-33.7); MCHC 31.9 g/dl (32.0-36.0); MEAN CELL VOLUME 84.9 fl (80-96); NEUTROPHILS 85.1 % (42.8-82.8); PLATELET COUNT 342 K/MM3 (134-434); RDW 13.9 % (11.6-15.6); WHITE BLOOD COUNT 17.6 K/mm3 (4.0-10.0)
[2017-06-20 08:45] LABS: ALBUMIN 2.8 g/dl (3.4-5.0); ALK PHOS 81 U/L (45-117); ANION GAP 7 (8-16); BILIRUBIN,TOTAL 0.5 mg/dL (0.2-1.0); CALCIUM 8.8 mg/dL (8.5-10.1); CO2 29 mmol/L (21-32); CREATININE 0.8 mg/dL (0.55-1.02); FREE T4 1.44 ng/dl (0.76-1.46); GLUCOSE,RANDOM 67 mg/dL (74-106); SGOT/AST 32 U/L (15-37); SGPT/ALT 51 U/L (12-78); THYROID STIMULATING HORMONE 0.59 uIU/ml (0.358-3.74); TOT PROT 6.2 g/dl (6.4-8.2)
[2017-06-20] MEDS: HEPARIN NA (PORCINE) 5,000 UNITS/ML 1ML VIAL SQ SCH ×2 (09:29→21:33)
[2017-06-20] MEDS: predniSONE 20 MG TABLET (UD) PO SCH ×2 (09:30→21:33)
[2017-06-20] MEDS: LOSARTAN POTASSIUM 50 MG TABLET (FP) PO SCH (09:30)
[2017-06-20] MEDS: AZITHROMYCIN IVPB 500 MG in DEXTROSE 5%-WATER - 250 ML IVPB SCH (09:30)
[2017-06-20] MEDS: METOPROLOL SUCCINATE 50 MG TAB.SR.24H (FP) PO SCH (09:30)
[2017-06-20] MEDS: FOLIC ACID 1 MG TABLET (FP) PO SCH (09:30)
[2017-06-20] MEDS: TIOTROPIUM BROMIDE 18 MCG/INH (DEVICE W/ 5 CAPSULES) IH SCH (09:34)
[2017-06-20] MEDS: ISOSORBIDE MONONITRATE 60 MG TAB.SR.24H (FP) PO SCH (09:34)
--- NOTE | 2017-06-20 13:45 | PN ---
Progress Note (short form) - Note Progress Note: PULMONARY FAMILY PRESENT SUBJECTIVE IMPROVEMENT VSS ANICTERIC MILD SCATTERED END EXP WHEEZE S1S2 BS+ NO EDEMA IMAGES/MICRO/LABS/MEDS/NOTES REVIEWED CT chest b/l nodules as described Duodenal mass s/p multiple biopsies path pending acute bronchospastic episode post egd requiring ICU/Nippv Acute Hypercapneic Respiratory Failure HTN DM CAD - Prednisone taper - inhaled bronchodilators standing and PRN - O2 to keep SpO2 >90% - Spiriva daily - Can add LABA/ICS upon discharge - Check path Mitzi KELLY MD
[2017-06-20] MEDS ORDERED: PT OWN MED DRAWER 7, Y5N ONE ×2 (15:01→15:40)
[2017-06-20] MEDS ORDERED: INSULIN (NOVOLOG) ASPART 100 UNITS/ML 10ML VIAL ONE (20:28)
--- NOTE | 2017-06-20 21:03 | PN ---
Progress Note, Physician Chief Complaint: Acute respiratory distress History of Present Illness: NAD, in bed - Current Medication List Current Medications: Active Medications Acetaminophen (Tylenol -) 650 mg PO Q6H PRN PRN Reason: FEVER OR PAIN Albuterol Sulfate (Ventolin 0.083% Nebulizer Soln -) 1 amp NEB Q4H PRN PRN Reason: Dyspnea Atorvastatin Calcium (Lipitor -) 40 mg PO HS [facility] Last Admin: 06/19/17 21:32 Dose: 40 mg Folic Acid (Folic Acid -) 1 mg PO DAILY [facility] Last Admin: 06/20/17 09:30 Dose: 1 mg Heparin Sodium (Porcine) (Heparin -) 5,000 unit SQ BID [facility] Last Admin: 06/20/17 09:29 Dose: 5,000 unit Azithromycin 500 mg/ Dextrose 250 mls @ 250 mls/hr IVPB DAILY [facility] Last Admin: 06/20/17 09:30 Dose: 250 mls/hr Insulin Aspart (Novolog Vial Sliding Scale -) 1 vial SQ ACHS [facility] PRN Reason: Protocol Last Admin: 06/20/17 17:15 Dose: 4 units Insulin Detemir (Levemir Vial) 30 units SQ HS [facility] Last Admin: 06/19/17 21:32 Dose: 30 units Isosorbide Mononitrate (Imdur -) 60 mg PO DAILY [facility] Last Admin: 06/20/17 09:34 Dose: 60 mg Losartan Potassium (Cozaar -) 100 mg PO DAILY [facility] Last Admin: 06/20/17 09:30 Dose: 100 mg Metoprolol Succinate (Toprol Xl -) 50 mg PO DAILY [facility] Last Admin: 06/20/17 09:30 Dose: 50 mg Prednisone (Deltasone -) 20 mg PO BID [facility] Last Admin: 06/20/17 09:30 Dose: 20 mg Tiotropium [place] (Spiriva -) 1 puff IH DAILY [facility] Last Admin: 06/20/17 09:34 Dose: 1 puff - Objective Vital Signs: Vital Signs Temperature 98.2 F 06/20/17 18:51 Pulse Rate 83 06/20/17 18:51 Respiratory Rate 18 06/20/17 18:51 Blood Pressure 137/63 06/20/17 18:51 O2 Sat by Pulse Oximetry (%) 99 06/20/17 15:51 Constitutional: Yes: Well Nourished, No Distress, Calm Cardiovascular: Yes: Regular Rate and Rhythm Respiratory: Yes: Regular Gastrointestinal: Yes: Normal Bowel Sounds Neurological: Yes: Alert, Oriented Psychiatric: Yes: Alert, Oriented Labs: CBC, BMP 06/20/17 05:35 06/20/17 05:35 INR, PTT INR 1.12 (0.82-1.09) 06/17/17 06:10 Problem List - Problems (1) Acute hypercapnic respiratory failure Assessment/Plan: -current off bipap -on nasal o2 2lpm, maintain Spo2> 90% -PO steroids -neb tx -IV abx -seen by Pulmonary Code(s): J96.02 - ACUTE RESPIRATORY FAILURE WITH HYPERCAPNIA (2) CAD (coronary artery disease) Assessment/Plan: -seen by Cardiology -cleared by cardiology -restarted on aspirin 81 mg po daily Code(s): I25.10 - ATHSCL HEART DISEASE OF [place] CORONARY ARTERY W/O ANG PCTRS Qualifiers: Coronary Disease-Associated Artery/Lesion type: [place] artery [place] vs. transplanted heart: [place] heart Associated angina: without angina Qualified Code(s): I25.10 - Atherosclerotic heart disease of [place] coronary artery without angina pectoris; I25.10 - Atherosclerotic heart disease of [place] coronary artery without angina pectoris; I25.10 - Atherosclerotic heart disease of [place] coronary artery without angina pectoris (3) COPD exacerbation Assessment/Plan: -Prednisone tapering dose -inhaled bronchodilators standing and PRN -O2 to keep SpO2 >90% -Spiriva daily -Can add LABA/ICS upon discharge -seen by Pulmonary -cleared by Pulmonary Code(s): J44.1 - CHRONIC OBSTRUCTIVE PULMONARY DISEASE W (ACUTE) EXACERBATION (4) Diabetes Assessment/Plan: -on long and short acting insulin -bgm -last hga1c 8.2 Code(s): E11.9 - TYPE 2 DIABETES MELLITUS WITHOUT COMPLICATIONS Qualifiers: Diabetes mellitus type: type 2 (5) Mass of duodenum Assessment/Plan: -seen by GI -on soft diet -would f/u with GI outpatient Code(s): K31.89 - OTHER DISEASES OF STOMACH AND DUODENUM Assessment/Plan see problem list seen by PT d/c in AM
[2017-06-20] MEDS: ATORVASTATIN CA 40 MG TABLET (FP) PO SCH (21:33)
[2017-06-20] MEDS: INSULIN DETEMIR 100 UNITS/ML MDV SQ SCH (21:33)
[2017-06-20] MEDS ORDERED: guaiFENesin/D-METHORPHAN HB 10 ML UNIT-DOSE CUPS PO PRN (22:54)
[2017-06-21] MEDS: INSULIN SLIDING SCALE (NOVOLOG) 1 VIAL SQ SCH ×4 (06:17→23:14)
[2017-06-21] MEDS ORDERED: ASPIRIN 325 MG TABLET PO SCH (10:00)
[2017-06-21] MEDS: TIOTROPIUM BROMIDE 18 MCG/INH (DEVICE W/ 5 CAPSULES) IH SCH (10:31)
[2017-06-21] MEDS: predniSONE 20 MG TABLET (UD) PO SCH (10:32)
[2017-06-21] MEDS: HEPARIN NA (PORCINE) 5,000 UNITS/ML 1ML VIAL SQ SCH ×2 (10:32→23:08)
[2017-06-21] MEDS: METOPROLOL SUCCINATE 50 MG TAB.SR.24H (FP) PO SCH (10:32)
[2017-06-21] MEDS: FOLIC ACID 1 MG TABLET (FP) PO SCH (10:33)
[2017-06-21] MEDS: LOSARTAN POTASSIUM 50 MG TABLET (FP) PO SCH (10:33)
[2017-06-21] MEDS: ISOSORBIDE MONONITRATE 60 MG TAB.SR.24H (FP) PO SCH (10:33)
--- NOTE | 2017-06-21 11:33 | PN ---
Progress Note (short form) - Note Progress Note: PULMONARY FAMILY PRESENT SUBJECTIVE IMPROVEMENT VSS ANICTERIC no wheeze S1S2 BS+ NO EDEMA IMAGES/MICRO/LABS/MEDS/NOTES REVIEWED CT chest b/l nodules as described Duodenal mass s/p multiple biopsies path pending acute bronchospastic episode post egd requiring ICU/Nippv Acute Hypercapneic Respiratory Failure HTN DM CAD - Prednisone taper - inhaled bronchodilators standing and PRN - O2 to keep SpO2 >90% - Spiriva daily - Can add LABA/ICS upon discharge - Check path Mitzi KELLY MD
[2017-06-21] MEDS ORDERED: INSULIN (NOVOLOG) ASPART 100 UNITS/ML 10ML VIAL ONE ×2 (11:50→22:20)
[2017-06-21] MEDS: AZITHROMYCIN IVPB 500 MG in DEXTROSE 5%-WATER - 250 ML IVPB SCH (12:20)
--- NOTE | 2017-06-21 12:29 | HOSP ---
Subjective - Review of Symptoms Subjective: The pt is sitting comfortable and eating breakfast. She states that she had diffuse abdominal pain that lasted 2 minutes. It was 8/10, not associated with breathing, constant, no radiation, no accos. with physical activity. She denied nausea, vomiting, SOB, palpitations, dizziness, LOC. Pulmonary: No: Dyspnea Cardiovascular: Yes: Chest Pain. No: Palpitations, Orthopnea Gastrointestinal: No: Nausea, Vomiting Musculoskeletal: Yes: No Symptoms Neurological: No: Confusion Physical Examination Vital Signs: Vital Signs Temperature 97.5 F L 06/21/17 12:17 Pulse Rate 73 06/21/17 12:17 Respiratory Rate 18 06/21/17 12:17 Blood Pressure 149/70 06/21/17 12:17 O2 Sat by Pulse Oximetry (%) 89 L 06/21/17 12:16 Constitutional: Yes: Well Nourished, No Distress, Calm Eyes: Yes: WNL, Conjunctiva Clear, EOM Intact HENT: Yes: WNL, Atraumatic, Normocephalic Neck: Yes: WNL, Supple, Trachea Midline Cardiovascular: Yes: WNL, Regular Rate and Rhythm, Murmur (2/6 systolic murmur over right upper sternal border) Respiratory: Yes: WNL, Regular, CTA Bilaterally. No: Cough Labs: CBC, BMP 06/20/17 05:35 06/20/17 05:35 Hospitalist Encounter Assessment: This is a 81 year old female with a PMH of HTN, DMII, CAD s/p stents in 2007, asthma, duodenal mass who was admitted to the hospital for acute respiratory failute with elevated troponins. I was called to assess the pt for chest pain. Outcome: I found the pt comfortable, no chest pain, VS 149/70 HR 73. Oxyg Sat 97. Primary Physician Notified: Evelyn Sneed Recommendations/Interventions: EKG and cardiac profile were ordered. EKG showed no changes, will follow troponins. Visit type - Emergency Visit Emergency Visit: Yes ED Registration Date: 06/16/17 Care time: The patient presented to the Emergency Department on the above date and was hospitalized for further evaluation of their emergent condition. - New Patient This patient is new to me today: Yes Date on this admission: 06/21/17 - Critical Care Critical Care patient: No
--- NOTE | 2017-06-21 12:43 | PN ---
GI Progress Note Subjective: tolerated soft diet, patient with multiple gastric ulcers ,of concern is the large duodenal ulcerwith could be occluding the pylorus, awaiting pathology results, developed chest pain, ELKG and blood wok ordered by PMD - Objective Vital Signs: Vital Signs Temperature 97.5 F L 06/21/17 12:17 Pulse Rate 73 06/21/17 12:17 Respiratory Rate 18 06/21/17 12:17 Blood Pressure 149/70 06/21/17 12:17 O2 Sat by Pulse Oximetry (%) 89 L 06/21/17 12:16 Constitutional: No Distress Eyes: Yes: Conjunctiva Clear HENT: Yes: Atraumatic Neck: Yes: Supple Cardiovascular: Yes: Regular Rate and Rhythm Respiratory: Yes: CTA Bilaterally ...Palpate: Yes: Soft, Tenderness, Epigastium. No: Firm/Rigid, Guarding, Hepatomegaly, Mass, Splenomegaly, Tenderness Labs: CBC, BMP 06/20/17 05:35 06/20/17 05:35 INR, PTT INR 1.12 (0.82-1.09) 06/17/17 06:10 Problem List - Problems (1) Duodenal bulb ulcer Assessment/Plan: r/o malignancy R> cea level await biopsy results Code(s): K26.9 - DUODENAL ULCER, UNSP ACUTE OR CHRONIC, W/O HEMOR OR PERF (2) Gastric ulcer Assessment/Plan: multiple gastric ulcers noted by EGD most likely secondary to high dose of Aspirin and Prednisone, patient also complains of epigastric pain R> 1)d/c aspirin 325mg switch to Plavix 75 mg daily and Aspirin 81 mg for now if okay with Cardiology restart Aspirin 2) consider to discontinue Aspirin if ok with Cardiology 3) Protonix 40mg bid 4) H pylori stool antigen Code(s): K25.9 - GASTRIC ULCER, UNSP ACUTE OR CHRONIC, W/O HEMOR OR PERF
[2017-06-21] MEDS: CLOPIDOGREL BISULFATE 75 MG TABLET (FP) PO SCH (13:00)
[2017-06-21] MEDS: PANTOPRAZOLE 40 MG TABLET (FP) PO SCH ×2 (13:00→23:08)
[2017-06-21 13:09] LABS: TROPONIN I 0.14 ng/ml (0.00-0.05)
--- NOTE | 2017-06-21 22:04 | PN ---
Progress Note, Physician Chief Complaint: Acute respiratory distress History of Present Illness: ALPHONSE, in bed chest pain earlier today,states she has been getting it intermittently across her chest, doesn't radiate to arms or neck. evaluated by hospitalist EKG-ok trop trending down if last trop negative, ok to go to [facility] in am - Current Medication List Current Medications: Active Medications Acetaminophen (Tylenol -) 650 mg PO Q6H PRN PRN Reason: FEVER OR PAIN Last Admin: 06/21/17 11:45 Dose: 650 mg Albuterol Sulfate (Ventolin 0.083% Nebulizer Soln -) 1 amp NEB Q4H PRN PRN Reason: Dyspnea Aspirin (Ecotrin -) 81 mg PO DAILY [facility] Atorvastatin Calcium (Lipitor -) 40 mg PO HS [facility] Last Admin: 06/20/17 21:33 Dose: 40 mg Clopidogrel Bisulfate (Plavix -) 75 mg PO DAILY [facility] Last Admin: 06/21/17 13:00 Dose: 75 mg Folic Acid (Folic Acid -) 1 mg PO DAILY [facility] Last Admin: 06/21/17 10:33 Dose: 1 mg Guaifenesin (Robitussin Dm -) 10 ml PO Q6H PRN PRN Reason: COUGH Heparin Sodium (Porcine) (Heparin -) 5,000 unit SQ BID [facility] Last Admin: 06/21/17 10:32 Dose: 5,000 unit Azithromycin 500 mg/ Dextrose 250 mls @ 250 mls/hr IVPB DAILY [facility] Last Admin: 06/21/17 12:20 Dose: 250 mls/hr Insulin Aspart (Novolog Vial Sliding Scale -) 1 vial SQ ACHS [facility] PRN Reason: Protocol Last Admin: 06/21/17 16:55 Dose: 6 units Insulin Detemir (Levemir Vial) 30 units SQ HS [facility] Last Admin: 06/20/17 21:33 Dose: 30 units Isosorbide Mononitrate (Imdur -) 60 mg PO DAILY [facility] Last Admin: 06/21/17 10:33 Dose: 60 mg Losartan Potassium (Cozaar -) 100 mg PO DAILY [facility] Last Admin: 06/21/17 10:33 Dose: 100 mg Metoprolol Succinate (Toprol Xl -) 50 mg PO DAILY [facility] Last Admin: 06/21/17 10:32 Dose: 50 mg Pantoprazole Sodium (Protonix -) 40 mg PO BID [facility] Last Admin: 06/21/17 13:00 Dose: 40 mg Prednisone (Deltasone -) 20 mg PO DAILY [facility] Tiotropium [place] (Spiriva -) 1 puff IH DAILY [facility] Last Admin: 06/21/17 10:31 Dose: 1 puff - Objective Vital Signs: Vital Signs Temperature 97.5 F L 06/21/17 18:21 Pulse Rate 73 06/21/17 18:21 Respiratory Rate 18 06/21/17 21:00 Blood Pressure 112/54 06/21/17 18:21 O2 Sat by Pulse Oximetry (%) 97 06/21/17 21:00 Constitutional: Yes: Well Nourished, No Distress, Calm Cardiovascular: Yes: Regular Rate and Rhythm Respiratory: Yes: Regular Musculoskeletal: Yes: WNL Extremities: Yes: WNL Edema: No Peripheral Pulses WNL: Yes Neurological: Yes: Alert, Oriented Psychiatric: Yes: Alert, Oriented Labs: CBC, BMP 06/20/17 05:35 06/20/17 05:35 INR, PTT INR 1.12 (0.82-1.09) 06/17/17 06:10 Problem List - Problems (1) Acute hypercapnic respiratory failure Assessment/Plan: -current off bipap -on nasal o2 2lpm, maintain Spo2> 90% -PO steroids -neb tx -IV abx received 6 days of azithromycin 500 mg, change to PO and d/c to rehab -seen by Pulmonary Code(s): J96.02 - ACUTE RESPIRATORY FAILURE WITH HYPERCAPNIA (2) CAD (coronary artery disease) Assessment/Plan: -seen by Cardiology -cleared by cardiology -restarted on aspirin 81 mg po daily Code(s): I25.10 - ATHSCL HEART DISEASE OF [place] CORONARY ARTERY W/O ANG PCTRS Qualifiers: Coronary Disease-Associated Artery/Lesion type: [place] artery [place] vs. transplanted heart: [place] heart Associated angina: without angina Qualified Code(s): I25.10 - Atherosclerotic heart disease of [place] coronary artery without angina pectoris; I25.10 - Atherosclerotic heart disease of [place] coronary artery without angina pectoris; I25.10 - Atherosclerotic heart disease of [place] coronary artery without angina pectoris (3) COPD exacerbation Assessment/Plan: -Prednisone tapering dose -inhaled bronchodilators standing and PRN -O2 to keep SpO2 >90% -Spiriva daily -Can add LABA/ICS upon discharge -seen by Pulmonary -cleared by Pulmonary Code(s): J44.1 - CHRONIC OBSTRUCTIVE PULMONARY DISEASE W (ACUTE) EXACERBATION (4) Diabetes Assessment/Plan: -on long and short acting insulin -bgm -last hga1c 8.2 Code(s): E11.9 - TYPE 2 DIABETES MELLITUS WITHOUT COMPLICATIONS Qualifiers: Diabetes mellitus type: type 2 (5) Mass of duodenum Assessment/Plan: -seen by GI -on soft diet -would f/u with GI outpatient Code(s): K31.89 - OTHER DISEASES OF STOMACH AND DUODENUM Assessment/Plan see problem list seen by PT d/c in AM
[2017-06-21] MEDS: ATORVASTATIN CA 40 MG TABLET (FP) PO SCH (23:08)
[2017-06-21] MEDS: INSULIN DETEMIR 100 UNITS/ML MDV SQ SCH (23:13)
[2017-06-22] MEDS: INSULIN SLIDING SCALE (NOVOLOG) 1 VIAL SQ SCH ×4 (06:38→21:25)
--- NOTE | 2017-06-22 09:09 | DS ---
Physical Examination Vital Signs: Vital Signs Temperature 98.2 F 06/22/17 05:45 Pulse Rate 55 L 06/22/17 05:45 Respiratory Rate 20 06/22/17 05:45 Blood Pressure 134/56 06/22/17 05:45 O2 Sat by Pulse Oximetry (%) 97 06/21/17 21:00 Cardiovascular: Yes: S1, S2 Respiratory: Yes: On Nasal O2, Rhonchi Gastrointestinal: Yes: Normal Bowel Sounds, Soft Labs: CBC, BMP 06/20/17 05:35 06/20/17 05:35 Discharge Summary Reason For Visit: ACUTE RESPIRATORY FAILURE WITH HYPERCAPNIC Current Active Problems Acute hypercapnic respiratory failure (Acute) Asthma attack (Acute) CAD (coronary artery disease) (Acute) CHF (congestive heart failure) (Acute) COPD exacerbation (Acute) Diabetes (Acute) Duodenal bulb ulcer (Acute) Gastric ulcer (Acute) Hypertension (Acute) Mass of duodenum (Acute) Preop cardiovascular exam (Acute) Renal insufficiency, mild (Acute) Hospital Course: She is an 81 year old female with h/o of asthma, diabetes, chol ,CAD s/p stent mid Lcx 2007 (other vessels nonobst, nlef on echo) follows with Dr Lul Solitario at [facility], carotid stenosis, abdominal pain who was undergoing EGD with propofol for sedation (found with mass) became severely short of breath with wheezing brought to the ER. No chest pain, palpitations, orthopnea, pnd or edema. Baseline exercise tolerance is good. Given asthma treatment and bipap in ER with improvement. - History Source History Provided By: Patient, Family Member, Medical Record - Past Medical History Cardio/Vascular: Yes: CAD, HTN, Hyperlipdemia Pulmonary: Yes: Asthma, COPD Gastrointestinal: Yes: Other (EGD noted with mass in stomach. ) - Problems (1) Acute hypercapnic respiratory failure Assessment/Plan: -current off bipap -on nasal o2 2lpm, maintain Spo2> 90% -PO steroids -neb tx -IV abx received 6 days of azithromycin 500 mg, change to PO and d/c to rehab -seen by Pulmonary Code(s): J96.02 - ACUTE RESPIRATORY FAILURE WITH HYPERCAPNIA (2) CAD (coronary artery disease) Assessment/Plan: -seen by Cardiology -cleared by cardiology -restarted on aspirin 81 mg po daily Code(s): I25.10 - ATHSCL HEART DISEASE OF [place] CORONARY ARTERY W/O ANG PCTRS Qualifiers: Coronary Disease-Associated Artery/Lesion type: [place] artery [place] vs. transplanted heart: [place] heart Associated angina: without angina Qualified Code(s): I25.10 - Atherosclerotic heart disease of [place] coronary artery without angina pectoris; I25.10 - Atherosclerotic heart disease of [place] coronary artery without angina pectoris; I25.10 - Atherosclerotic heart disease of [place] coronary artery without angina pectoris (3) COPD exacerbation Assessment/Plan: -Prednisone tapering dose -inhaled bronchodilators standing and PRN -O2 to keep SpO2 >90% -Spiriva daily -Can add LABA/ICS upon discharge -seen by Pulmonary -cleared by Pulmonary Code(s): J44.1 - CHRONIC OBSTRUCTIVE PULMONARY DISEASE W (ACUTE) EXACERBATION (4) Diabetes Assessment/Plan: -on long and short acting insulin -bgm -last hga1c 8.2 Code(s): E11.9 - TYPE 2 DIABETES MELLITUS WITHOUT COMPLICATIONS Qualifiers: Diabetes mellitus type: type 2 (5) Mass of duodenum Assessment/Plan: -seen by GI -on soft diet -would f/u with GI outpatient Code(s): K31.89 - OTHER DISEASES OF STOMACH AND DUODENUM Assessment/Plan see problem list seen by PT d/c to snf for pt and pulmonary rehab Condition: Guarded - Home Medications Comprehensive Discharge Medication List: Ambulatory Orders Amlodipine Besylate [Norvasc -] 2.5 mg PO DAILY 04/30/17 Atorvastatin Ca [Lipitor] 80 mg PO HS 04/30/17 Cholecalciferol (Vitamin D3) [Vitamin D3] 2,000 unit PO DAILY 04/30/17 Docusate Sodium [Stool Softener] 100 mg PO BID 04/30/17 Folic Acid 1 mg PO DAILY 04/30/17 Insulin Glargine,Hum.rec.anlog [Lantus (10mL VIAL) -] 34 units SQ HS 04/30/17 Isosorbide Mononitrate [Isosorbide Mononitrate ER] 60 mg PO DAILY 04/30/17 Losartan Potassium 100 mg PO DAILY 04/30/17 Metoprolol Succinate [Toprol Xl] 50 mg PO DAILY 04/30/17 Tiotropium [place] [Spiriva] 1 inh IH DAILY 04/30/17 Acetaminophen [Tylenol Extra Strength] 500 mg PO HS 06/16/17 Insulin Aspart [Novolog Flexpen] 0 unit SQ ASDIR PRN 06/16/17 Albuterol 0.083% Nebulizer [place] [Ventolin 0.083% Nebulizer Soln -] 1 amp NEB Q4H PRN #0 amp 06/22/17 Aspirin Coated [Ecotrin -] 81 mg PO DAILY tab 06/22/17 Azithromycin [Zithromax 250mg Tablets -] 500 mg PO DAILY tablet 06/22/17 Clopidogrel Bisulfate [Plavix -] 75 mg PO DAILY tablet 06/22/17 Folic Acid - 1 mg PO DAILY tablet 06/22/17 Heparin - 5,000 unit SQ BID vial 06/22/17 Insulin (Levemir) [Levemir Vial] 30 units SQ HS #10 ml 06/22/17 Pantoprazole Sodium [Protonix -] 40 mg PO BID tab 06/22/17 Prednisone [Deltasone -] 20 mg PO DAILY tablet 06/22/17
[2017-06-22] MEDS ORDERED: PT OWN MED DRAWER 7, Y5N ONE (09:10)
[2017-06-22] MEDS: FOLIC ACID 1 MG TABLET (FP) PO SCH (09:11)
[2017-06-22] MEDS: CLOPIDOGREL BISULFATE 75 MG TABLET (FP) PO SCH (09:11)
[2017-06-22] MEDS: PANTOPRAZOLE 40 MG TABLET (FP) PO SCH ×2 (09:11→21:23)
[2017-06-22] MEDS: METOPROLOL SUCCINATE 50 MG TAB.SR.24H (FP) PO SCH (09:11)
[2017-06-22] MEDS: ISOSORBIDE MONONITRATE 60 MG TAB.SR.24H (FP) PO SCH (09:11)
[2017-06-22] MEDS: predniSONE 20 MG TABLET (UD) PO SCH (09:12)
[2017-06-22] MEDS: ASPIRIN COATED 81 MG TABLET.EC PO SCH (09:12)
[2017-06-22] MEDS: HEPARIN NA (PORCINE) 5,000 UNITS/ML 1ML VIAL SQ SCH ×2 (09:12→21:22)
[2017-06-22] MEDS: AZITHROMYCIN 250 MG TABLET PO SCH (09:12)
[2017-06-22] MEDS: LOSARTAN POTASSIUM 50 MG TABLET (FP) PO SCH (09:15)
[2017-06-22] MEDS: TIOTROPIUM BROMIDE 18 MCG/INH (DEVICE W/ 5 CAPSULES) IH SCH (09:15)
--- NOTE | 2017-06-22 10:11 | EKG ---
Test Reason : Blood Pressure : / mmHG Vent. Rate : 054 BPM Atrial Rate : 054 BPM P-R Int : 146 ms QRS Dur : 086 ms QT Int : 422 ms P-R-T Axes : 076 061 047 degrees QTc Int : 400 ms SINUS BRADYCARDIA MODERATE VOLTAGE CRITERIA FOR LVH, MAY BE NORMAL VARIANT NONSPECIFIC ST ABNORMALITY ABNORMAL ECG WHEN COMPARED WITH ECG OF 17-JUN-2017 17:02, NO SIGNIFICANT CHANGE WAS FOUND Confirmed by LOBO MIRELES, KIERSTEN ([id number]) on 06/22/2017 10:10:30 AM Referred By: Naun SLADE Confirmed By:KIERSTEN DIAMOND MD
--- NOTE | 2017-06-22 10:17 | EKG ---
Test Reason : Blood Pressure : / mmHG Vent. Rate : 073 BPM Atrial Rate : 073 BPM P-R Int : 160 ms QRS Dur : 090 ms QT Int : 406 ms P-R-T Axes : 072 056 046 degrees QTc Int : 447 ms NORMAL SINUS RHYTHM NONSPECIFIC ST ABNORMALITY ABNORMAL ECG WHEN COMPARED WITH ECG OF 17-JUN-2017 15:00, NO SIGNIFICANT CHANGE WAS FOUND Confirmed by KIERSTEN DIAMOND MD ([id number]) on 06/22/2017 10:16:58 AM Referred By: Confirmed By:KIERSTEN DIAMOND MD
[2017-06-22] MEDS ORDERED: INSULIN (NOVOLOG) ASPART 100 UNITS/ML 10ML VIAL ONE ×2 (16:39→20:32)
[2017-06-22] MEDS ORDERED: INSULIN DETEMIR 100 UNITS/ML MDV SQ ONE (20:30)
[2017-06-22] MEDS: ATORVASTATIN CA 40 MG TABLET (FP) PO SCH (21:23)
[2017-06-22] MEDS: INSULIN DETEMIR 100 UNITS/ML MDV SQ SCH (21:24)
[2017-06-23] MEDS: INSULIN SLIDING SCALE (NOVOLOG) 1 VIAL SQ SCH ×2 (06:17→11:09)
[2017-06-23] MEDS ORDERED: INSULIN DETEMIR 100 UNITS/ML MDV SQ ONE (06:22)
--- NOTE | 2017-06-23 09:01 | DS ---
Physical Examination Vital Signs: Vital Signs Temperature 54 F L 06/23/17 06:00 Pulse Rate 54 L 06/23/17 06:00 Respiratory Rate 20 06/23/17 06:00 Blood Pressure 149/66 06/23/17 06:00 O2 Sat by Pulse Oximetry (%) 97 06/22/17 23:12 Cardiovascular: Yes: S1, S2 Respiratory: Yes: Diminished, On Nasal O2 Gastrointestinal: Yes: Normal Bowel Sounds, Soft Labs: CBC, BMP 06/20/17 05:35 06/20/17 05:35 Discharge Summary Reason For Visit: ACUTE RESPIRATORY FAILURE WITH HYPERCAPNIC Current Active Problems Acute hypercapnic respiratory failure (Acute) Asthma attack (Acute) CAD (coronary artery disease) (Acute) CHF (congestive heart failure) (Acute) COPD exacerbation (Acute) Diabetes (Acute) Duodenal bulb ulcer (Acute) Gastric ulcer (Acute) Hypertension (Acute) Mass of duodenum (Acute) Preop cardiovascular exam (Acute) Renal insufficiency, mild (Acute) Hospital Course: She is an 81 year old female with h/o of asthma, diabetes, chol ,CAD s/p stent mid Lcx 2007 (other vessels nonobst, nlef on echo) follows with Dr Lul Solitario at [facility], carotid stenosis, abdominal pain who was undergoing EGD with propofol for sedation (found with mass) became severely short of breath with wheezing brought to the ER. No chest pain, palpitations, orthopnea, pnd or edema. Baseline exercise tolerance is good. Given asthma treatment and bipap in ER with improvement. - History Source History Provided By: Patient, Family Member, Medical Record - Past Medical History Cardio/Vascular: Yes: CAD, HTN, Hyperlipdemia Pulmonary: Yes: Asthma, COPD Gastrointestinal: Yes: Other (EGD noted with mass in stomach. ) - Problems (1) Acute hypercapnic respiratory failure Assessment/Plan: -current off bipap -on nasal o2 2lpm, maintain Spo2> 90% -PO steroids -neb tx -IV abx received 6 days of azithromycin 500 mg, change to PO and d/c to rehab -seen by Pulmonary Code(s): J96.02 - ACUTE RESPIRATORY FAILURE WITH HYPERCAPNIA (2) CAD (coronary artery disease) Assessment/Plan: -seen by Cardiology -cleared by cardiology -restarted on aspirin 81 mg po daily Code(s): I25.10 - ATHSCL HEART DISEASE OF [place] CORONARY ARTERY W/O ANG PCTRS Qualifiers: Coronary Disease-Associated Artery/Lesion type: [place] artery [place] vs. transplanted heart: [place] heart Associated angina: without angina Qualified Code(s): I25.10 - Atherosclerotic heart disease of [place] coronary artery without angina pectoris; I25.10 - Atherosclerotic heart disease of [place] coronary artery without angina pectoris; I25.10 - Atherosclerotic heart disease of [place] coronary artery without angina pectoris (3) COPD exacerbation Assessment/Plan: -Prednisone tapering dose -inhaled bronchodilators standing and PRN -O2 to keep SpO2 >90% -Spiriva daily -Can add LABA/ICS upon discharge -seen by Pulmonary -cleared by Pulmonary Code(s): J44.1 - CHRONIC OBSTRUCTIVE PULMONARY DISEASE W (ACUTE) EXACERBATION (4) Diabetes Assessment/Plan: -on long and short acting insulin -bgm -last hga1c 8.2 Code(s): E11.9 - TYPE 2 DIABETES MELLITUS WITHOUT COMPLICATIONS Qualifiers: Diabetes mellitus type: type 2 (5) Mass of duodenum Assessment/Plan: -seen by GI -on soft diet -would f/u with GI outpatient Code(s): K31.89 - OTHER DISEASES OF STOMACH AND DUODENUM Assessment/Plan see problem list seen by PT d/c to snf for pt and pulmonary rehab Condition: Improved - Instructions Disposition: [facility] - Home Medications Comprehensive Discharge Medication List: Ambulatory Orders Amlodipine Besylate [Norvasc -] 2.5 mg PO DAILY 04/30/17 Atorvastatin Ca [Lipitor] 80 mg PO HS 04/30/17 Cholecalciferol (Vitamin D3) [Vitamin D3] 2,000 unit PO DAILY 04/30/17 Docusate Sodium [Stool Softener] 100 mg PO BID 04/30/17 Folic Acid 1 mg PO DAILY 04/30/17 Insulin Glargine,Hum.rec.anlog [Lantus (10mL VIAL) -] 34 units SQ HS 04/30/17 Isosorbide Mononitrate [Isosorbide Mononitrate ER] 60 mg PO DAILY 04/30/17 Losartan Potassium 100 mg PO DAILY 04/30/17 Metoprolol Succinate [Toprol Xl] 50 mg PO DAILY 04/30/17 Tiotropium [place] [Spiriva] 1 inh IH DAILY 04/30/17 Acetaminophen [Tylenol Extra Strength] 500 mg PO HS 06/16/17 Insulin Aspart [Novolog Flexpen] 0 unit SQ ASDIR PRN 06/16/17 Albuterol 0.083% Nebulizer Daina [Ventolin 0.083% Nebulizer Soln -] 1 amp NEB Q4H PRN #0 amp 06/22/17 Aspirin Coated [Ecotrin -] 81 mg PO DAILY tab 06/22/17 Azithromycin [Zithromax 250mg Tablets -] 500 mg PO DAILY tablet 06/22/17 Clopidogrel Bisulfate [Plavix -] 75 mg PO DAILY tablet 06/22/17 Folic Acid - 1 mg PO DAILY tablet 06/22/17 Heparin - 5,000 unit SQ BID vial 06/22/17 Insulin (Levemir) [Levemir Vial] 30 units SQ HS #10 ml 06/22/17 Pantoprazole Sodium [Protonix -] 40 mg PO BID tab 06/22/17 Prednisone [Deltasone -] 20 mg PO DAILY tablet 06/22/17
[2017-06-23] MEDS: TIOTROPIUM BROMIDE 18 MCG/INH (DEVICE W/ 5 CAPSULES) IH SCH (09:49)
[2017-06-23] MEDS: ASPIRIN COATED 81 MG TABLET.EC PO SCH (09:50)
[2017-06-23] MEDS: CLOPIDOGREL BISULFATE 75 MG TABLET (FP) PO SCH (09:50)
[2017-06-23] MEDS: AZITHROMYCIN 250 MG TABLET PO SCH (09:50)
[2017-06-23] MEDS: FOLIC ACID 1 MG TABLET (FP) PO SCH (09:50)
[2017-06-23] MEDS: ISOSORBIDE MONONITRATE 60 MG TAB.SR.24H (FP) PO SCH (09:50)
[2017-06-23] MEDS: predniSONE 20 MG TABLET (UD) PO SCH (09:50)
[2017-06-23] MEDS: LOSARTAN POTASSIUM 50 MG TABLET (FP) PO SCH (09:50)
[2017-06-23] MEDS: METOPROLOL SUCCINATE 50 MG TAB.SR.24H (FP) PO SCH (09:50)
[2017-06-23] MEDS: HEPARIN NA (PORCINE) 5,000 UNITS/ML 1ML VIAL SQ SCH (09:50)
[2017-06-23] MEDS: PANTOPRAZOLE 40 MG TABLET (FP) PO SCH (09:50)
[2017-06-23 10:43] VITALS: BP 143/62; TEMP 97.6
[2017-06-23 11:21] VITALS: PULSE 62
== END 2017-06-23 12:28 | DRG 189 ==
LOC: JER 13:16 → JERBED 14:53 → JICU 18:22 → J4W 06-18 15:38 → J7W 06-20 15:36
PROVIDERS: ADMIT Student in an Organized Health Care Education/Training Program; ATTEND Student in an Organized Health Care Education/Training Program
DX: J96.02 Acute respiratory failure with hypercapnia (principal); E87.2 Acidosis; J44.1 Chronic obstructive pulmonary disease with (acute) exacerbation; E11.9 Type 2 diabetes mellitus without complications; I10 Essential (primary) hypertension; N28.9 Disorder of kidney and ureter, unspecified; I25.10 Atherosclerotic heart disease of native coronary artery without angina pectoris; Z98.61 Coronary angioplasty status; K31.89 Other diseases of stomach and duodenum
CPT/HCPCS: 36415; 36600; 71010-TC; 71250-TC; 80048; 80053; 81003; 81015; 82375; 82378; 82550; 82553; 82803; 83036; 83050; 83605; 83735; 83880; 84100; 84439; 84443; 84484; 85025; 85027; 85610; 85730; 86850; 86900; 86901; 87040; 90688; 93005; 93010; 93306-TC; 94640; 94660; 97116-GP; 97161-GP; 99285-25; J1644

== ENCOUNTER 2019-08-04 11:00 | Inpatient (IN) | payer OTHER, BC ==
--- NOTE | 2019-08-04 11:59 | PDOC ---
History of Present Illness - General Chief Complaint: Altered Mental Status Stated Complaint: confusion x 1 week Time Seen by Provider: 08/04/19 11:02 History Source: Patient, Family (Daughter) Exam Limitations: Dementia - History of Present Illness Initial Comments: Pt is an 84 yo F, with PMH of IDDM, chronic angina (on ASA) and CAD (stent x1, 2011), HTN, HLD, NAINA (?), COPD, and duodenal mass, who is presenting from home with complaints of AMS and mild frontal headache x1 week. Pt is accompanied by her son and daughter, who state the pt seems 'more confused and forgetful" than usual, drooping of her L eye yesterday, and she had slurring of her speech this morning at around 9 am when they were speaking on the phone, which has since resolved. Pt has been tolerating PO intake as usual, and pt has no current complains other than her baseline nausea. Pt had duodenal mass w/u, but has not followed up with oncology or GI outpatient since then (pt had desaturation during endoscopy and was admitted to ICU, 2017). Pt denies any recent fevers/ chills, headache, vision changes, syncope, chest pain from baseline, palpitations, SOB, nausea/vomiting, abdominal pain, urinary symptoms, diarrhea/ constipation, or leg swelling. Allergies: NKDA PCP: Dr. Sneed Social: Pt with ~40 pack year smoking history. Pt denies any current cigarette, alcohol, or drug use. Pt denies any recent travel or sick contacts. Surgical: cholecystectomy Family: no relevant history. 08/04/19 11:59 08/04/19 13:15 08/04/19 13:27 Past History - Travel Traveled outside of the country in the last 30 days: No Close contact w/someone who was outside of country & ill: No - Past Medical History Allergies/Adverse Reactions: Allergies Allergy/AdvReac Type Severity Reaction Status Date / Time No Known Allergies Allergy Verified 08/04/19 11:28 Home Medications: Ambulatory Orders Amlodipine Besylate [Norvasc -] 2.5 mg PO DAILY 04/30/17 Atorvastatin Ca [Lipitor] 80 mg PO HS 04/30/17 Cholecalciferol (Vitamin D3) [Vitamin D3] 2,000 unit PO DAILY 04/30/17 Docusate Sodium [Stool Softener] 100 mg PO BID 04/30/17 Folic Acid 1 mg PO DAILY 04/30/17 Insulin Glargine,Hum.rec.anlog [Lantus (10mL VIAL) -] 34 units SQ HS 04/30/17 Isosorbide Mononitrate [Isosorbide Mononitrate ER] 60 mg PO DAILY 04/30/17 Losartan Potassium 100 mg PO DAILY 04/30/17 Metoprolol Succinate [Toprol Xl] 50 mg PO DAILY 04/30/17 Tiotropium [place] [Spiriva] 1 inh IH DAILY 04/30/17 Acetaminophen [Tylenol Extra Strength] 500 mg PO HS 06/16/17 Insulin Aspart [Novolog Flexpen] 0 unit SQ ASDIR PRN 06/16/17 Albuterol 0.083% Nebulizer Daina [Ventolin 0.083% Nebulizer Soln -] 1 amp NEB Q4H PRN #0 amp 06/22/17 Aspirin Coated [Ecotrin -] 81 mg PO DAILY tab 06/22/17 Azithromycin [Zithromax 250mg Tablets -] 500 mg PO DAILY tablet 06/22/17 Clopidogrel Bisulfate [Plavix -] 75 mg PO DAILY tablet 06/22/17 Folic Acid - 1 mg PO DAILY tablet 06/22/17 Heparin - 5,000 unit SQ BID vial 06/22/17 Insulin (Levemir) [Levemir Vial] 30 units SQ HS #10 ml 06/22/17 Pantoprazole Sodium [Protonix -] 40 mg PO BID tab 06/22/17 predniSONE [Deltasone -] 20 mg PO DAILY tablet 06/22/17 Asthma: Yes Cardiac Disorders: Yes (1 STENT, ANGINA) COPD: (emphysema) Dementia: Yes Diabetes: Yes GI Disorders: Yes (cholycystectomy) Disorders: No HTN: Yes Hypercholesterolemia: Yes Liver Disease: No Thyroid Disease: No - Surgical History Cardiac Surgery: Yes (STENT) Cholecystectomy: Yes - Psycho Social/Smoking Cessation Hx Smoking History: Former smoker Have you smoked in the past 12 months: No If you are a former smoker, when did you quit?: 20 years ago Information on smoking cessation initiated: No Hx Alcohol Use: No Drug/Substance Use Hx: No Substance Use Type: None Hx Substance Use Treatment: No Review of Systems - Review of Systems Able to Perform ROS?: Yes Is the patient limited [place] proficient: No Constitutional: Yes: Weight Stable. No: Chills, Diaphoresis, Fever, Loss of Appetite, Malaise, Weakness HEENTM: No: Blurred Vision, Recent change in vision, Nose Congestion, Throat Pain, Throat Swelling, Difficulty Swallowing Respiratory: No: Cough, Orthopnea, Shortness of Breath Cardiac (ROS): No: Chest Pain (no changes from baseline angina), Edema, Irregular Heart Rate, Lightheadedness, Palpitations, Syncope, Chest Tightness ABD/GI: Yes: Nausea. No: Abdominal Distended, Constipated, Diarrhea, Poor Appetite, Poor Fluid Intake, Vomiting, Abdominal cramping : No: Burning, Dysuria, Frequency, Pain, Urgency Musculoskeletal: No: Back Pain, Joint Pain, Muscle Pain, Muscle Weakness, Neck Pain Integumentary: No: Rash Neurological: Yes: Headache (frontal headache), Other (slurring of speech, forgetfulness). No: Numbness, Paresthesia, Seizure, Weakness, Unsteady Gait, Dizziness Psychiatric: No: Sleep Pattern Change, Change in Appetite Endocrine: No: Increased Urine, Change in Weight Hematologic/Lymphatic: Yes: Anemia (CAD, stent x1). No: Blood Clots, Easy Bleeding, Easy Bruising All Other Systems: Reviewed and Negative *Physical Exam - Vital Signs Last Vital Signs Temp Pulse Resp BP Pulse Ox 97.6 F 73 18 113/91 100 08/04/19 11:08/04/19 11:08/04/19 11:08/04/19 11:08/04/19 11:01 - Physical Exam Vitals stable, pt afebrile. Pt in NAD, normal body habitus. Pt alert and oriented x3. car pilot generally intact, muscular strength and sensation intact. Cerebellar exam WNL. No midline spinal tenderness, step-offs, or crepitus. Head normocephalic, atraumatic. Eyes PERRLA, EOMI. Oropharynx without erythema or exudates, no LAD b/l. No nasal congestion. Hearing intact. Clear heart sounds, S1/S2, no JVD, b/l pedal edema, or heart murmur. B/l minimally diminished lung sounds with no focal areas of consolidation; no respiratory distress, wheezes, crackles, or accessory muscle use. Mild epigastric TTP (pt states baseline), no CVA tenderness to palpation, no rebound, no guarding. Abdomen soft, non-distended, and with normoactive bowel sounds. Skin without jaundice or rash. 08/04/19 13:33 ED Treatment Course - LABORATORY CBC & Chemistry Diagram: 08/04/19 11:48 08/04/19 11:48 - ADDITIONAL ORDERS Additional order review: Laboratory Results 08/04/19 11:43 POC Glucometer 136 08/04/19 11:43 POC Glucometer 136 - RADIOLOGY Radiology Studies Ordered: Category Date Time Status HEAD CT WITHOUT CONTRAST [CT] Stat CT Scan 08/04/19 11:14 Ordered CHEST PA & LAT [RAD] Stat Radiology 08/04/19 11:25 Ordered Medical Decision Making - Medical Decision Making Pt was seen at bedside, also will be seen by attending Dr. Callejas. Pt presenting with AMS x1 week, with focal deficits per family members since yesterday, which have resolved at the time of my exam. Pt with no FNDs, vitals stable, last CT abd/pelvis (2016) showed no abnormalities of the aorta, less likely dissection or AAA. Pt has not followed up for concerning duodenal mass since her last admission. Will evaluate for source of infarction/CVA vs delirium (infection, ACS, electrolyte abnormalities) vs progressive dementia. Provided 20 mg IV pepcid for improvement of nausea. Will continue to reassess pt and monitor for symptomatic improvement. ECG: NSR, LVH (HR 77, IL 146, QRS 66, QTc 436). No TWIs or significant ST segment changes. No significant changes from prior ECG (06/21/2017). 08/04/19 13:34 Mild leukocytosis, UA negative for infection. Hyperkalemia (5.5) with no peaked T's on EKG. Elevated Tbili from baseline, still with some epigastric TTP -- will evaluate with CT abd/pelvis with IV contrast Pt seems to be responding to external stimuli which is not distressing to her ( hearing music) -- delirium vs sun-downing/dementia vs CVA Paged Dr. Sneed team for admission for further monitoring and CVA r/o Pending CT abd/pelvis 08/04/19 13:44 08/04/19 13:[address] Sneed's service. Placed consult for neurology. Pt stable for admission. 08/04/19 14:04 Discharge - Discharge Information Problems reviewed: Yes Clinical Impression/Diagnosis: Mass of duodenum AMS (altered mental status) Qualifiers: Altered mental status type: unspecified Qualified Code(s): R41.82 - Altered mental status, unspecified Condition: Stable - Admission Yes - Follow up/Referral - Patient Discharge Instructions - Post Discharge Activity
[2019-08-04 12:11] LABS: BASO % 1.2 % (0-2.0); EOS % 0.1 % (0-4.5); HEMATOCRIT 35.3 % (32.4-45.2); HEMOGLOBIN 11.3 GM/dl (10.7-15.3); LYMPH % 7.4 % (8-40); MCH 27.7 pg (25.7-33.7); MCHC 31.9 g/dl (32.0-36.0); MEAN CELL VOLUME 86.8 fl (80-96); MEAN PLT VOLUME 9.3 fl (7.5-11.1); MONO % 6.7 % (3.8-10.2); NEUT % 84.6 % (42.8-82.8); PLATELET COUNT 249 K/MM3 (134-434); RBC 4.06 M/mm3 (3.60-5.2); RDW 15.1 % (11.6-15.6); WHITE BLOOD COUNT 12.8 K/mm3 (4.0-10.8)
[2019-08-04 12:13] LABS: EPITHELIAL CELLS FEW /hpf
[2019-08-04 12:14] LABS: INR 1.16 (0.82-1.09)
[2019-08-04 12:17] LABS: ALBUMIN 3.8 g/dl (3.4-5.0); BILIRUBIN,TOTAL 1.2 mg/dl (0.2-1); CALCIUM 9.3 mg/dl (8.5-10); CREATININE 0.9 mg/dl (0.55-1.3); POTASSIUM 5.4 mmol/L (3.5-5.1); TOT PROT 6.7 g/dl (6.4-8.2)
--- NOTE | 2019-08-04 12:35 | PDOC ---
Attending Attestation - Resident Resident Name: Eleanor Cerda - ED Attending Attestation I have performed the following: I have examined & evaluated the patient, The case was reviewed & discussed with the resident, I agree w/resident's findings & plan, Exceptions are as noted - HPI HPI: 08/04/19 12:30 84 F with h/o asthma, DM, HLD, CAD and carotid stenosis, presenting to ED with 1 week of progressively worsening confusion. Per family, pt started forgetting the date and year. She normally is AnOx4 at baseline. Today, family became concerned when the pt called the daughter and was slurring her speech. The son went to pt's house and found that she was much more confused than normal, speaking unintelligibly. This gradually improved over the next few hours, and pt has now returned to baseline, though still forgetful of the year. Pt denies any complaints herself. Denies any weakness/numbness in any extremity. No slurred speech or facial droop. Family notes that pt is IDDM and does not check her sugars routinely. - Physicial Exam PE: 08/04/19 12:34 GENERAL: Awake, alert, in no acute distress. HEAD: No signs of trauma EYES: PERRLA, EOMI, sclera anicteric, conjunctiva clear ENT: Auricles normal inspection, hearing grossly normal, nares patent, oropharynx clear without exudates. Moist mucosa NECK: Nontender, no stepoffs, Normal ROM, supple, no lymphadenopathy, JVD, or masses LUNGS: Breath sounds equal, clear to auscultation bilaterally. No wheezes, and no crackles HEART: Regular rate and rhythm, normal S1 and S2, no murmurs, rubs or gallops ABDOMEN: Soft, nontender, normoactive bowel sounds. No guarding, no rebound. No masses EXTREMITIES: Normal range of motion, no edema. No clubbing or cyanosis. No cords, erythema, or tenderness NEUROLOGICAL: Cranial nerves II through XII intact. 5/5 strength and sensation in all extremities, Normal speech, normal gait, normal cerebellar function SKIN: Warm, Dry, normal turgor, no rashes or lesions noted. - Medical Decision Making 08/04/19 12:34 84 F with progressively worsening confusion and an episode of slurred speech today. Will evaluate for CVA given her age and risk factors. Also consider infectious process. Pt also may have been hypoglycemic this morning. - Labs - CT head - CXR, UA
[2019-08-04] MEDS ORDERED: FAMOTIDINE 20 MG/50 ML IVPB 20 MG/50 ML MG IVPB ONE ×2 (13:15→13:33)
--- NOTE | 2019-08-04 15:24 | HP ---
Admitting History and Physical - Primary Care Physician PCP: Leticia Gifford I - Admission Chief Complaint: brought in for change in mental status History of Present Illness: t is an 84 yo F, with PMH of IDDM, chronic angina (on ASA) and CAD (stent x1, 2011), HTN, HLD, , COPD, and duodenal mass, who is presenting from home with complaints of AMS and mild frontal headache x1 week. Pt is accompanied by her son and daughter, who state the pt seems 'more confused and forgetful" than usual, drooping of her L eye yesterday, and she had slurring of her speech this morning at around 9 am when they were speaking on the phone, which has since resolved. Pt has been tolerating PO intake as usual, and pt has no current complains other than her baseline nausea. Pt had duodenal mass w/u, but has not followed up with oncology or GI outpatient since then (pt had desaturation during endoscopy and was admitted to ICU, 2017). Pt denies any recent fevers/ chills, headache, vision changes, syncope, chest pain from baseline, palpitations, SOB, nausea/vomiting, abdominal pain, urinary symptoms, diarrhea/ constipation, or leg swelling. History Source: Medical Record - Past Medical History Cardiovascular: Yes: CAD, HTN, Hyperlipdemia Pulmonary: Yes: Asthma, COPD Gastrointestinal: Yes: Other (EGD noted with mass in stomach. ) - Smoking History Smoking history: Former smoker Have you smoked in the past 12 months: No If you are a former smoker, when did you quit?: 20 years ago - Alcohol/Substance Use Hx Alcohol Use: No Home Medications - Allergies Allergies/Adverse Reactions: Allergies Allergy/AdvReac Type Severity Reaction Status Date / Time No Known Allergies Allergy Verified 08/04/19 11:28 - Home Medications Home Medications: Ambulatory Orders Amlodipine Besylate [Norvasc -] 2.5 mg PO DAILY 04/30/17 Atorvastatin Ca [Lipitor] 80 mg PO HS 04/30/17 Isosorbide Mononitrate [Isosorbide Mononitrate ER] 60 mg PO DAILY 04/30/17 Losartan Potassium 100 mg PO DAILY 04/30/17 Aspirin [Aspirin EC] 325 mg PO DAILY 08/04/19 Insulin Glargine,Hum.rec.anlog [Lantus Solostar PEN -] 0 units SQ ASDIR Lopressor 50 mg PO HS 08/04/19 Tradjenta 5 mg PO DAILY 08/04/19 Tylenol Pm Ex-Strength Caplet 2 tab PO HS 08/04/19 Review of Systems - Review of Systems Neck: reports: No Symptoms Cardiovascular: reports: No Symptoms Respiratory: reports: No Symptoms Gastrointestinal: reports: Other (epigastric pain) Physical Examination Vital Signs: Vital Signs Temperature 97.6 F 08/04/19 11:01 Pulse Rate 73 08/04/19 11:01 Respiratory Rate 18 08/04/19 11:01 Blood Pressure 113/91 08/04/19 11:01 O2 Sat by Pulse Oximetry (%) 100 08/04/19 11:01 Constitutional: Yes: Calm Cardiovascular: Yes: Regular Rate and Rhythm, S1, S2 Respiratory: Yes: CTA Bilaterally Labs: CBC, BMP 08/04/19 11:48 08/04/19 11:48 Imaging - Results Cat Scan: Report Reviewed (small hiatal hernia fatty infiltration of the liver head ct " moderate atrophy) Problem List - Problems (1) AMS (altered mental status) Assessment/Plan: MRI brain MRA neck neurology eval b12,rpr,tsh level folate PT eval lipid panel ivf hydration dvt ppx Code(s): R41.82 - ALTERED MENTAL STATUS, UNSPECIFIED Qualifiers: Altered mental status type: unspecified Qualified Code(s): R41.82 - Altered mental status, unspecified (2) Diabetes Assessment/Plan: bgm sliding scale discotniue low BGM ivf with dextrose hgba1c ivf Code(s): E11.9 - TYPE 2 DIABETES MELLITUS WITHOUT COMPLICATIONS Qualifiers: Diabetes mellitus type: type 2 (3) COPD (chronic obstructive pulmonary disease) Assessment/Plan: spiriva Code(s): J44.9 - CHRONIC OBSTRUCTIVE PULMONARY DISEASE, UNSPECIFIED (4) CAD (coronary artery disease) Assessment/Plan: aspirin,plavix gien low BP will hold imudr and metoprolol for now will reass in AM Code(s): I25.10 - ATHSCL HEART DISEASE OF [place] CORONARY ARTERY W/O ANG PCTRS Qualifiers: Coronary Disease-Associated Artery/Lesion type: [place] artery [place] vs. transplanted heart: [place] heart Associated angina: without angina Qualified Code(s): I25.10 - Atherosclerotic heart disease of [place] coronary artery without angina pectoris
[2019-08-04] MEDS ORDERED: SODIUM CHLORIDE 1,000 ML IV SCH (15:30)
[2019-08-04 15:52] LABS: HEMOGLOBIN 10.3 GM/dl (10.7-15.3); MCH 28.5 pg (25.7-33.7); MCHC 33.2 g/dl (32.0-36.0)
[2019-08-04 15:56] LABS: BASO % 3.3 % (0-2.0); EOS % 0.3 % (0-4.5); HEMATOCRIT 31.1 % (32.4-45.2); LYMPH % 10.7 % (8-40); MONO % 9.7 % (3.8-10.2); PLATELET COUNT 234 K/MM3 (134-434); RBC 3.62 M/mm3 (3.60-5.2); RDW 15.2 % (11.6-15.6); WHITE BLOOD COUNT 13.7 K/mm3 (4.0-10.8)
[2019-08-04 16:08] LABS: ALBUMIN 3.5 g/dl (3.4-5.0); BILIRUBIN,TOTAL 1.2 mg/dl (0.2-1); CALCIUM 8.7 mg/dl (8.5-10); CREATININE 0.9 mg/dl (0.55-1.3); POTASSIUM 4.1 mmol/L (3.5-5.1); TOT PROT 6.1 g/dl (6.4-8.2)
[2019-08-04] MEDS ORDERED: INSULIN SLIDING SCALE (NOVOLOG) 1 VIAL SQ SCH (16:30)
[2019-08-04] MEDS ORDERED: DEXTROSE 5%-NORMAL SALINE 1,000 ML IV SCH (16:45)
[2019-08-04 18:09] VITALS: BMI 18.9
[2019-08-04] MEDS: PANTOPRAZOLE 40 MG TABLET (FP) PO SCH (18:18)
[2019-08-05 08:10] LABS: INR 1.13 (0.82-1.09); PROTHROMBIN TIME (PATIENT) 12.6 SEC (10.2-13.0)
[2019-08-05 08:11] LABS: HEMATOCRIT 32.5 % (32.4-45.2); HEMOGLOBIN 10.8 GM/dl (10.7-15.3); MCH 28.8 pg (25.7-33.7); MCHC 33.2 g/dl (32.0-36.0); MEAN CELL VOLUME 86.9 fl (80-96); MEAN PLT VOLUME 9.5 fl (7.5-11.1); PLATELET COUNT 256 K/MM3 (134-434); RBC 3.74 M/mm3 (3.60-5.2); RDW 15.1 % (11.6-15.6); WHITE BLOOD COUNT 10.4 K/mm3 (4.0-10.8)
[2019-08-05 08:17] LABS: ALBUMIN 3.7 g/dl (3.4-5.0); BILIRUBIN,TOTAL 0.9 mg/dl (0.2-1); CREATININE 1.1 mg/dl (0.55-1.3); MAGNESIUM 2.1 mg/dL (1.8-2.4); POTASSIUM 4.5 mmol/L (3.5-5.1); TOT PROT 6.4 g/dl (6.4-8.2)
[2019-08-05 08:24] LABS: CHOLESTEROL 152 mg/dl (50-200); HDL CHOLESTEROL 45 mg/dl (40-60); TRIGLYCERIDES 76 mg/dl (0-150)
[2019-08-05 08:58] LABS: LDL CHOLESTEROL (ONLY SJRH) 91 mg/dL (5-100)
--- NOTE | 2019-08-05 09:29 | CONSULT ---
Consult - text type - Consultation Consultation Note: NEUROLOGY CONSULTATION is greatly appreciated: Events reviewed and discussed with RN. Patient examined. This 84 yo RH lives alone. She gave up driving "some time ago" and her son and daughter help with shopping, etc. PMH s for HTN, Chol, DM, ASHD, S/P stents, COPD s/p smoking x many years. Rx: Amlodipine; Atorvastatin; Insulin; Isosorbide; Losartan; Metoprolol; Spiriva ; Albuterol; Aspirin 81; Clopidogrel; Pantoprazole; and predniSONE. Family relates recent memory decline, worse in recent months. Hands numbness (L> R) for few years. Chronic, episodic LBP. Admitted after transient episode of slurred speech and drooping eyelid yesterday. BG n ER= [address] of head (reviewed): Moderate, diffuse atrophy and white matter hypodensity supporting microvascular changes. Carotid duplex: Moderate, B/L ICA stenosis. High frequency in the EXTernal CA's. Abd CT: Fatty liver. No duodenal mass. B12, TSH pending. [place]: II/ MIRIAM. B/L carotid bruits. No head trauma. NEURO: Awake, alert, Coop. Ox Jul. [facility]2018, [place], Recalls [facility] and Trump after 3 mins. Speech: Fluent CN II-XII: Normal. No ptosis. gag ok Motor: No drift. Weak APB's with atrophy and weak grasps. Otherwise normal strength. Nocogwheling. Absent AJ's. Toes downgoing. Coord: No FTN dystaxia Sensory: Decrease vibration both feet. Romberg +/-. Decreased pin both median distributions Gait: Sl wide-based. Sl shuffle. IMP: Non-focal exam sig for Moderate, B/L cerebral dysfunction (OMS, chronic). Early Alzheimer's +/- microvascular. Transient neurological symptoms yesterday. I suspect Hypoglycemia is more likely than TIA. Moderate carotid stenoses (non-surgical) B/L carpal tunnel syndromes (CTS) Diabetic peripheral neuropathy (PN). SUGGEST: Continue plavix and ASA 81. Await B12, TSH. Follow BG's and modify insulin regimen if necessary. VNS for [employer] Begin donepezil 5 mg PO after breakfast Neuro f/u for OMS, CTS, PN Thank you very much, Garry Moses MD
[2019-08-05] MEDS ORDERED: CLOPIDOGREL BISULFATE 75 MG TABLET (FP) PO SCH (10:00)
[2019-08-05] MEDS: ASPIRIN 81 MG CHEWABLE TABLETS PO SCH (10:24)
[2019-08-05] MEDS: PANTOPRAZOLE 40 MG TABLET (FP) PO SCH (10:24)
[2019-08-05] MEDS ORDERED: PT OWN MED DRAWER 7, Y5N ONE (10:26)
[2019-08-05] MEDS: TIOTROPIUM BROMIDE 2.5 MCG (SPIRIVA) RESPIMAT INHALER IH SCH (10:28)
--- NOTE | 2019-08-05 10:42 | PN ---
Progress Note, Physician Chief Complaint: patient seen and examined bgm improved carotid doppler shows modeate Bilateral ICA stenosis - Current Medication List Current Medications: Active Medications Aspirin (Asa -) 81 mg PO DAILY [facility] Last Admin: 08/05/19 10:24 Dose: 81 mg Clopidogrel Bisulfate (Plavix -) 75 mg PO DAILY [facility] Donepezil HCl (Aricept -) 5 mg PO DAILY@1800 [facility] Pantoprazole Sodium (Protonix -) 40 mg PO DAILY [facility] Last Admin: 08/05/19 10:24 Dose: 40 mg Tiotropium [place] (Spiriva Respimat) 2 puff IH DAILY [facility] Last Admin: 08/05/19 10:28 Dose: 2 puff - Objective Vital Signs: Vital Signs Temperature 98.2 F 08/05/19 03:00 Pulse Rate 97 H 08/05/19 03:00 Respiratory Rate 18 08/05/19 03:00 Blood Pressure 137/77 08/05/19 03:00 O2 Sat by Pulse Oximetry (%) 96 08/05/19 03:00 Constitutional: Yes: Calm Cardiovascular: Yes: Regular Rate and Rhythm, S1, S2 Respiratory: Yes: CTA Bilaterally Gastrointestinal: Yes: Normal Bowel Sounds, Soft Edema: No Neurological: Yes: Alert, Oriented Labs: CBC, BMP 08/05/19 07:47 08/05/19 07:47 INR, PTT INR 1.13 (0.82-1.09) 08/05/19 07:47 Problem List - Problems (1) AMS (altered mental status) Assessment/Plan: MRI brain pendng as pateint has a stent MRA neck pending neurology eval noted donezipil started today b12,rpr,tsh level pending folate PT eval- able to ambulate lipid panel noted ivf hydration will dc now dvt ppx mental status much imrpvoed probably secondary to hypoglycemia hgba1c 6.8 will adjust insulin dose Code(s): R41.82 - ALTERED MENTAL STATUS, UNSPECIFIED Qualifiers: Altered mental status type: unspecified Qualified Code(s): R41.82 - Altered mental status, unspecified (2) Diabetes Assessment/Plan: bgm noted much better will dc ivf sliding scale discontinue hgba1c 6.8 ivf stop insulin dose needs to be reduced Code(s): E11.9 - TYPE 2 DIABETES MELLITUS WITHOUT COMPLICATIONS Qualifiers: Diabetes mellitus type: type 2 (3) COPD (chronic obstructive pulmonary disease) Assessment/Plan: spiriva Code(s): J44.9 - CHRONIC OBSTRUCTIVE PULMONARY DISEASE, UNSPECIFIED (4) CAD (coronary artery disease) Assessment/Plan: aspirin,plavix lopressor dose decrease to 25mg Code(s): I25.10 - ATHSCL HEART DISEASE OF [place] CORONARY ARTERY W/O ANG PCTRS Qualifiers: Coronary Disease-Associated Artery/Lesion type: [place] artery [place] vs. transplanted heart: [place] heart Associated angina: without angina Qualified Code(s): I25.10 - Atherosclerotic heart disease of [place] coronary artery without angina pectoris
--- NOTE | 2019-08-05 11:22 | CONSULT ---
Consult Consult Specialty:: Nephrology Reason for Consultation:: azotemia - History of Present Illness Chief Complaint: change in mental status History of Present Illness: Pt is an 84 year old female with pmhx of dm, angina, cad, htl, hld, and copd who presented with altered mental status. I was called to evaluate her for azotemia and hyponatremia. She is now awake and appears comfortable. Her electrolytes have improved. SHe is confused. Her son is at bedside and assisted with history. - History Source History Provided By: Medical Record - Past Medical History Cardio/Vascular: Yes: CAD, HTN, Hyperlipdemia Pulmonary: Yes: Asthma, COPD Gastrointestinal: Yes: Other (EGD noted with mass in stomach. ) ...: No - Alcohol/Substance Use Hx Alcohol Use: No - Smoking History Smoking history: Former smoker Have you smoked in the past 12 months: No If you are a former smoker, when did you quit?: 20 years ago Home Medications - Allergies Allergies/Adverse Reactions: Allergies Allergy/AdvReac Type Severity Reaction Status Date / Time No Known Allergies Allergy Verified 08/04/19 11:28 - Home Medications Home Medications: Ambulatory Orders Atorvastatin Ca [Lipitor] 80 mg PO HS 04/30/17 Isosorbide Mononitrate [Isosorbide Mononitrate ER] 60 mg PO DAILY 04/30/17 Aspirin [Aspirin EC] 325 mg PO DAILY 08/04/19 Tradjenta 5 mg PO DAILY 08/04/19 Aspirin [ASA -] 81 mg PO DAILY tab.chew 08/05/19 Clopidogrel Bisulfate [Plavix -] 75 mg PO DAILY tablet 08/05/19 Clopidogrel Bisulfate [Plavix -] 75 mg PO DAILY tablet 08/05/19 Donepezil HCl [Aricept -] 5 mg PO DAILY #30 tablet 08/05/19 Insulin Glargine,Hum.rec.anlog [Lantus] 10 unit SQ ACBK #1 vial 08/05/19 Lancets [Glucocom Lancets] 1 each SQ DAILY #1 each 08/05/19 Losartan Potassium 50 mg PO DAILY #30 tablet 08/05/19 Metoprolol Tartrate [Lopressor] 25 mg PO DAILY #30 tablet 08/05/19 Miscellaneous Medical Supply [Glucometer Test Strips #100] 1 each SQ ASDIR #1 box 08/05/19 Miscellaneous Medical Supply [Glucometer Test Strips #100] 1 each SQ ASDIR #1 box 08/05/19 Tiotropium [place] [Spiriva Respimat] 2 puff IH DAILY inhaler 08/05/19 Family Medical History Family History: Denies Review of Systems - Review of Systems Constitutional: reports: No Symptoms Eyes: reports: No Symptoms HENT: reports: No Symptoms Neck: reports: No Symptoms Cardiovascular: reports: No Symptoms Respiratory: reports: No Symptoms Gastrointestinal: reports: No Symptoms Genitourinary: reports: No Symptoms Musculoskeletal: reports: No Symptoms Integumentary: reports: No Symptoms Neurological: reports: No Symptoms Endocrine: reports: No Symptoms Hematology/Lymphatic: reports: No Symptoms Psychiatric: reports: No Symptoms Physical Exam Vital Signs: Vital Signs Temperature 98.2 F 08/05/19 03:00 Pulse Rate 97 H 08/05/19 03:00 Respiratory Rate 18 08/05/19 03:00 Blood Pressure 137/77 08/05/19 03:00 O2 Sat by Pulse Oximetry (%) 96 08/05/19 03:00 Constitutional: Yes: Calm Eyes: Yes: Conjunctiva Clear HENT: Yes: Atraumatic Neck: Yes: Supple Cardiovascular: Yes: S1, S2 Respiratory: Yes: CTA Bilaterally Gastrointestinal: Yes: Soft Musculoskeletal: Yes: WNL Edema: No Neurological: Yes: Confusion Psychiatric: Yes: Oriented Labs: CBC, BMP 08/05/19 07:47 08/05/19 07:47 Laboratory Tests 08/04/19 08/04/19 08/04/19 11:31 15:30 15:30 WBC 13.7 H Sodium 135 L Potassium BUN Creatinine Urine Protein 2+ H Urine Blood Trace-lysed Urine Nitrite Negative 08/05/19 08/05/19 07:47 07:47 WBC 10.4 Sodium 139 Potassium 4.5 BUN 27.0 H Creatinine 1.1 Urine Protein Urine Blood Urine Nitrite Imaging - Results MRI: Report Reviewed Problem List - Problems (1) AMS (altered mental status) Code(s): R41.82 - ALTERED MENTAL STATUS, UNSPECIFIED Qualifiers: Altered mental status type: unspecified Qualified Code(s): R41.82 - Altered mental status, unspecified (2) COPD (chronic obstructive pulmonary disease) Code(s): J44.9 - CHRONIC OBSTRUCTIVE PULMONARY DISEASE, UNSPECIFIED (3) Hypertension Code(s): I10 - ESSENTIAL (PRIMARY) HYPERTENSION (4) Renal insufficiency, mild Code(s): N28.9 - DISORDER OF KIDNEY AND URETER, UNSPECIFIED Assessment/Plan Current Medications Generic Name Dose Route Start Last Admin Trade Name Freq PRN Reason Stop Dose Admin Aspirin 81 mg 08/05/19 10:00 08/05/19 10:24 Asa - PO 81 mg DAILY [facility] Administration Clopidogrel Bisulfate 75 mg 08/05/19 10:30 Plavix - PO DAILY [facility] Donepezil HCl 5 mg 08/05/19 18:00 Aricept - PO DAILY@1800 [facility] Pantoprazole Sodium 40 mg 08/04/19 16:45 08/05/19 10:24 Protonix - PO 40 mg DAILY [facility] Administration Tiotropium [place] 2 puff 08/05/19 10:00 08/05/19 10:28 Spiriva Respimat IH 2 puff DAILY [facility] Administration Impression 1. azotemia 2. dehydration 3. proteinuria 4. change in mental status 5. cad 6. htn 7. hyperkalemia 8. hyponatremai Plan - lytes are improved - can evaluate in office for proteinuria - avoid nsaids - encourage PO intake - discussed with son - will follow PRN
[2019-08-05] MEDS: CLOPIDOGREL BISULFATE 75 MG TABLET (FP) PO SCH (11:23)
--- NOTE | 2019-08-05 15:13 | DS ---
Physical Examination Vital Signs: Vital Signs Temperature 98.7 F 08/05/19 14:27 Pulse Rate 82 08/05/19 14:27 Respiratory Rate 18 08/05/19 14:27 Blood Pressure 144/53 L 08/05/19 14:27 O2 Sat by Pulse Oximetry (%) 99 08/05/19 14:27 Constitutional: Yes: Calm Cardiovascular: Yes: Regular Rate and Rhythm, S1, S2 Respiratory: Yes: CTA Bilaterally Gastrointestinal: Yes: Normal Bowel Sounds, Soft Labs: CBC, BMP 08/05/19 07:47 08/05/19 07:47 Discharge Summary Problems reviewed: Yes Reason For Visit: ALTERED MENTAL STATUS Current Active Problems AMS (altered mental status) (Acute) COPD (chronic obstructive pulmonary disease) (Acute) Mass of duodenum (Acute) Hospital Course: 84 yo F, with PMH of IDDM, chronic angina (on ASA) and CAD (stent x1, 2011), HTN , HLD, , COPD, and duodenal mass, who is presenting from home with complaints of AMS and mild frontal headache x1 week. Pt is accompanied by her son and daughter, who state the pt seems 'more confused and forgetful" than usual, drooping of her L eye yesterday, and she had slurring of her speech this morning at around 9 am when they were speaking on the phone, which has since resolved. Pt has been tolerating PO intake as usual, and pt has no current complains other than her baseline nausea. Pt had duodenal mass w/u, but has not followed up with oncology or GI outpatient since then (pt had desaturation during endoscopy and was admitted to ICU, 2017). Pt denies any recent fevers/ chills, headache, vision changes, syncope, chest pain from baseline, palpitations, SOB, nausea/vomiting, abdominal pain, urinary symptoms, diarrhea/ constipation, or leg swelling. admitted for change in mental status secondary to hypoglycemia brain MRI no acute infarct carotid dopler show s 50& ICA stenosis continue asprin plavix Dm decerase lantus dose to 10 units in AM and continue trajendata see by nuerology to start aricept 5 mg in AM after breakfast Condition: Stable - Instructions Diet, Activity, Other Instructions: 10 lantus in the morning donepezil 5mg after breakfast Disposition: VNS/HOME HEALTH CARE - Home Medications Comprehensive Discharge Medication List: Ambulatory Orders Amlodipine Besylate [Norvasc -] 2.5 mg PO DAILY 04/30/17 Atorvastatin Ca [Lipitor] 80 mg PO HS 04/30/17 Isosorbide Mononitrate [Isosorbide Mononitrate ER] 60 mg PO DAILY 04/30/17 Losartan Potassium 100 mg PO DAILY 04/30/17 Aspirin [Aspirin EC] 325 mg PO DAILY 08/04/19 Insulin Glargine,Hum.rec.anlog [Lantus Solostar PEN -] 0 units SQ ASDIR Lopressor 50 mg PO HS 08/04/19 Tradjenta 5 mg PO DAILY 08/04/19 Tylenol Pm Ex-Strength Caplet 2 tab PO HS 08/04/19
--- NOTE | 2019-08-05 16:43 | CON.CARD ---
Cardiology Consult (text) - Consultation Consultation Note: cc: ams hpi: 84 f hx copd, dm, hld, cad s/p pci 2007, , here with ams. At home was confused, tired, slurred speech. No cp sob palps dizzy loc pnd orthopnea le edema. Evaluated by neuro here, thought to be sxs from hypoglycemia. Feeling better now, at baseline. 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 pmh: per hpi psh: pci, cholecystectomy social: +tob fam: no premature cad ros: per hpi; all others nl meds: Home Medications Medication Instructions Recorded Atorvastatin Ca [Lipitor] 80 mg PO HS 04/30/17 Isosorbide Mononitrate [Isosorbide 60 mg PO DAILY 04/30/17 Mononitrate ER] Aspirin [Aspirin EC] 325 mg PO DAILY 08/04/19 Tradjenta 5 mg PO DAILY 08/04/19 Aspirin [ASA -] 81 mg PO DAILY tab.chew 08/05/19 Clopidogrel Bisulfate [Plavix -] 75 mg PO DAILY tablet 08/05/19 Clopidogrel Bisulfate [Plavix -] 75 mg PO DAILY tablet 08/05/19 Donepezil HCl [Aricept -] 5 mg PO DAILY #30 tablet 08/05/19 Insulin Glargine,Hum.rec.anlog 10 unit SQ ACBK #1 vial 08/05/19 [Lantus] Lancets [Glucocom Lancets] 1 each SQ DAILY #1 each 08/05/19 Losartan Potassium 50 mg PO DAILY #30 tablet 08/05/19 Metoprolol Tartrate [Lopressor] 25 mg PO DAILY #30 tablet 08/05/19 Miscellaneous Medical Supply 1 each SQ ASDIR #1 box 08/05/19 [Glucometer Test Strips #100] Miscellaneous Medical Supply 1 each SQ ASDIR #1 box 08/05/19 [Glucometer Test Strips #100] Tiotropium [place] [Spiriva 2 puff IH DAILY inhaler 08/05/19 Respimat] pe: Vital Signs Period Temp Pulse Resp BP Sys/Mcdowell Pulse Ox Last 24 Hr 97.8 F-98.7 F 72-97 18-18 112-144/38-97 95-99 nad no jvd rrr s1s2 +as murmur, no r/g cta bl nl eff awake alert appropriate no jaundice diaphoresis pos dp pt no carotid bruits abd ns nd pos bs no le e/c/c Laboratory Last Values WBC 10.4 K/mm3 (4.0-10.8) 08/05/19 07:47 RBC 3.74 M/mm3 (3.60-5.2) 08/05/19 07:47 Hgb 10.8 GM/dl (10.7-15.3) 08/05/19 07:47 Hct 32.5 % (32.4-45.2) 08/05/19 07:47 MCV 86.9 fl (80-96) 08/05/19 07:47 MCH 28.8 pg (25.7-33.7) 08/05/19 07:47 MCHC 33.2 g/dl (32.0-36.0) 08/05/19 07:47 RDW 15.1 % (11.6-15.6) 08/05/19 07:47 Plt Count 256 K/MM3 (134-434) 08/05/19 07:47 MPV 9.5 fl (7.5-11.1) 08/05/19 07:47 Absolute Neuts (auto) 10.4 K/mm3 08/04/19 15:30 Neutrophils % 76.0 % (42.8-82.8) 08/04/19 15:30 Lymphocytes % 10.7 % (8-40) 08/04/19 15:30 Monocytes % 9.7 % (3.8-10.2) 08/04/19 15:30 Eosinophils % 0.3 % (0-4.5) 08/04/19 15:30 Basophils % 3.3 % (0-2.0) H 08/04/19 15:30 PT with INR 12.6 SEC (10.2-13.0) 08/05/19 07:47 INR 1.13 (0.82-1.09) 08/05/19 07:47 PTT (Actin FS) 29.3 SECONDS (25.2-36.5) 08/04/19 15:30 Sodium 139 mmol/L (136-145) 08/05/19 07:47 Potassium 4.5 mmol/L (3.5-5.1) 08/05/19 07:47 Chloride 107 mmol/L (98-107) 08/05/19 07:47 Carbon Dioxide 25 mmol/L (21-32) 08/05/19 07:47 Anion Gap 7 MMOL/L (8-16) L 08/05/19 07:47 BUN 27.0 mg/dl (7-18) H 08/05/19 07:47 Creatinine 1.1 mg/dl (0.55-1.3) 08/05/19 07:47 Est GFR (CKD-EPI)AfAm 53.02 08/05/19 07:47 Est GFR (CKD-EPI)NonAf 45.74 08/05/19 07:47 POC Glucometer 203 UNITS (80-120) 08/05/19 16:22 Random Glucose 98 mg/dl (74-106) 08/05/19 07:47 Hemoglobin A1c % 6.8 % (4.2-6.3) H 08/05/19 07:47 Calcium 9.0 mg/dl (8.5-10) 08/05/19 07:47 Magnesium 2.1 mg/dL (1.8-2.4) 08/05/19 07:47 Total Bilirubin 0.9 mg/dl (0.2-1) 08/05/19 07:47 AST 35 U/L (15-37) 08/05/19 07:47 ALT 26 U/L (13-61) 08/05/19 07:47 Alkaline Phosphatase 59 U/L (45-117) 08/05/19 07:47 Ammonia 15.50 umol/L (11-32) 08/04/19 15:30 Troponin I < 0.03 ng/ml (0.00-0.05) 08/04/19 11:48 Total Protein 6.4 g/dl (6.4-8.2) 08/05/19 07:47 Albumin 3.7 g/dl (3.4-5.0) 08/05/19 07:47 Triglycerides 76 mg/dl (0-150) 08/05/19 07:47 Cholesterol 152 mg/dl (50-200) 08/05/19 07:47 Total LDL Cholesterol 91 mg/dL (5-100) 08/05/19 07:47 HDL Cholesterol 45 mg/dl (40-60) 08/05/19 07:47 Vitamin B12 681 pg/ml (193-986) 08/05/19 07:47 TSH 1.05 uIU/ml (0.358-3.74) 08/05/19 07:47 Thyroxine (T4) 9.0 ug/dl (4.5-13.9) 08/05/19 07:47 Urine Color Yellow 08/04/19 11:31 Urine Appearance Clear 08/04/19 11:31 Urine pH 5.0 (4.5-8) 08/04/19 11:31 Urine Protein 2+ (NEGATIVE) H 08/04/19 11:31 Urine Glucose (UA) Negative (NEGATIVE) 08/04/19 11:31 Urine Ketones Negative (NEGATIVE) 08/04/19 11:31 Urine Blood Trace-lysed (NEGATIVE) 08/04/19 11:31 Urine Nitrite Negative (NEGATIVE) 08/04/19 11:31 Urine Bilirubin Negative (NEGATIVE) 08/04/19 11:31 Urine Urobilinogen 0.2 (0.2-1.0) 08/04/19 11:31 Ur Leukocyte Esterase Negative (NEGATIVE) 08/04/19 11:31 Urine RBC 0-2 /hpf (0-4) 08/04/19 11:31 Urine WBC 0-2 (NEGATIVE) 08/04/19 11:31 Ur Transition Epith Cell Few /hpf 08/04/19 11:31 Urine Bacteria Few /hpf (NEGATIVE) 08/04/19 11:31 RPR Titer Nonreactive (NONREACTIVE) 08/05/19 07:47 ecg: sr nl intervals no ischemic changes cxr: clear lungs echo 05/2017: nl lvef, mild as, mild peric eff a/p: 84 f hx copd, dm, hld, cad s/p pci 2007, , here with ams. ams: -improved -seen by neuro, felt to be hypoglycemia related hld: -cont statin cad: -remote pci, no acute issues, no signs acs -cont asa, statin as: -outpt f/u for monitoring
[2019-08-05] MEDS ORDERED: DONEPEZIL HCL 5 MG TABLET (FP) PO SCH (18:00)
[2019-08-06] MEDS: ASPIRIN 81 MG CHEWABLE TABLETS PO SCH (10:23)
[2019-08-06] MEDS: TIOTROPIUM BROMIDE 2.5 MCG (SPIRIVA) RESPIMAT INHALER IH SCH (10:23)
[2019-08-06] MEDS: PANTOPRAZOLE 40 MG TABLET (FP) PO SCH (10:23)
[2019-08-06] MEDS: CLOPIDOGREL BISULFATE 75 MG TABLET (FP) PO SCH (10:23)
--- NOTE | 2019-08-06 10:48 | PN ---
Progress Note, Physician Chief Complaint: feeling better No CP/SOB/palps. History of Present Illness: son at bedside. - Current Medication List Current Medications: Active Medications Aspirin (Asa -) 81 mg PO DAILY [facility] Last Admin: 08/06/19 10:23 Dose: 81 mg Clopidogrel Bisulfate (Plavix -) 75 mg PO DAILY [facility] Last Admin: 08/06/19 10:23 Dose: 75 mg Donepezil HCl (Aricept -) 5 mg PO DAILY@1800 [facility] Pantoprazole Sodium (Protonix -) 40 mg PO DAILY [facility] Last Admin: 08/06/19 10:23 Dose: 40 mg Tiotropium [place] (Spiriva Respimat) 2 puff IH DAILY [facility] Last Admin: 08/06/19 10:23 Dose: 2 puff - Objective Vital Signs: Vital Signs Temperature 98.4 F 08/06/19 06:00 Pulse Rate 69 08/06/19 06:00 Respiratory Rate 16 08/06/19 09:00 Blood Pressure 160/45 L 08/06/19 06:00 O2 Sat by Pulse Oximetry (%) 97 08/06/19 09:00 Constitutional: Yes: No Distress, Calm Eyes: Yes: Conjunctiva Clear Neck: Yes: Thyromegaly Cardiovascular: Yes: Murmur (2/6 MIRIAM RSB) Respiratory: Yes: CTA Bilaterally Gastrointestinal: Yes: Soft Edema: No Peripheral Pulses WNL: Yes Neurological: Yes: Alert, Oriented Labs: CBC, BMP 08/05/19 07:47 08/05/19 07:47 INR, PTT INR 1.13 (0.82-1.09) 08/05/19 07:47 - ....Imaging EKG: Image Reviewed Assessment/Plan ecg: sr nl intervals no ischemic changes cxr: clear lungs echo 05/2017: nl lvef, mild as, mild peric eff a/p: 84 f hx copd, dm, hld, cad s/p pci 2007, , here with ams. ams: -improved -seen by neuro, felt to be hypoglycemia related hld: -cont statin cad: -remote pci, no acute issues, no signs acs -cont asa, statin as: -Murmur noted on exam; can have surveillance echo Thursday if remains inpatient. Otherwise, can be done as outpatient. D/W son at bedside.
[2019-08-06 11:40] VITALS: BP 154/49; PULSE 75; TEMP 97.9
--- NOTE | 2019-08-06 23:25 | EKG ---
Test Reason : Blood Pressure : / mmHG Vent. Rate : 077 BPM Atrial Rate : 077 BPM P-R Int : 146 ms QRS Dur : 066 ms QT Int : 386 ms P-R-T Axes : 063 058 055 degrees QTc Int : 436 ms NORMAL SINUS RHYTHM MINIMAL VOLTAGE CRITERIA FOR LVH, MAY BE NORMAL VARIANT NONSPECIFIC ST ABNORMALITY ABNORMAL ECG WHEN COMPARED WITH ECG OF 21-JUN-2017 11:51, NO SIGNIFICANT CHANGE WAS FOUND Confirmed by LOBO MIRELES, KIERSTEN ([id number]) on 08/06/2019 11:25:38 PM Referred By: CARMEN SILVERMAN Confirmed By:KIERSTEN DIAMOND MD
== END 2019-08-06 11:46 | disposition home health service (06) | DRG 637 ==
LOC: FER 11:00 → FM/S 13:06 → OBSVTOIN 15:18 → FM/S 23:13
PROVIDERS: ADMIT Family Medicine; ATTEND Family Medicine
DX: E11.649 Type 2 diabetes mellitus with hypoglycemia without coma (principal); G93.41 Metabolic encephalopathy; F05 Delirium due to known physiological condition; R41.82 Altered mental status, unspecified; J44.9 Chronic obstructive pulmonary disease, unspecified; I25.10 Atherosclerotic heart disease of native coronary artery without angina pectoris; E11.40 Type 2 diabetes mellitus with diabetic neuropathy, unspecified; E78.5 Hyperlipidemia, unspecified; Z98.61 Coronary angioplasty status; I65.29 Occlusion and stenosis of unspecified carotid artery
CPT/HCPCS: 36415; 70450-TC; 70544-TC; 70551-TC; 71046-TC-FY; 74177-TC; 80048; 80053; 80061; 81003; 81015; 82140; 82607; 82962; 83036; 83721; 83735; 84436; 84443; 84484; 85025; 85027; 85610; 85730; 86593; 87086; 93005; 93880-TC; 97116-GP; 97161-GP; 99283-25; G0378; Q9967

== ENCOUNTER 2021-07-15 11:33 | Inpatient (IN) | payer OTHER, BC ==
[2021-07-15] MEDS ORDERED: ALBUTEROL SO4 2.5/IPRATROPIUM 0.5 INH SOL 3 ML VIAL.NEB. NEB ONE ×2 (12:00→13:17)
[2021-07-15 13:13] LABS: ACTIVATED PTT 30.4 SECONDS (25.2-36.5)
[2021-07-15 13:17] LABS: INR 1.19 (0.82-1.09); PROTHROMBIN TIME (PATIENT) 13.2 SEC (10.2-13.0)
[2021-07-15 13:24] LABS: ALBUMIN 3.9 g/dl (3.4-5.0); ALK PHOS 71 U/L (45-117); ANION GAP 15 MMOL/L (8-16); BILIRUBIN,TOTAL 1.2 mg/dl (0.2-1); CALCIUM 9.6 mg/dl (8.5-10); CHLORIDE 94 mmol/L (98-107); CO2 24 mmol/L (21-32); GLUCOSE,RANDOM 134 mg/dl (74-106); HEMATOCRIT 36.2 % (32.4-45.2); HEMOGLOBIN 11.6 GM/dl (10.7-15.3); MCH 28.1 pg (25.7-33.7); MCHC 32.1 g/dl (32.0-36.0); MEAN CELL VOLUME 87.6 fl (80-96); MEAN PLT VOLUME 9.7 fl (7.5-11.1); PLATELET COUNT 321 10^3/uL (134-434); RBC 4.13 M/mm3 (3.60-5.2); RDW 15.1 % (11.6-15.6); SGOT/AST 38 U/L (15-37); SGPT/ALT 24 U/L (13-61); SODIUM 133 mmol/L (136-145); TOT PROT 7.3 g/dl (6.4-8.2); WHITE BLOOD COUNT 19.4 K/mm3 (4.0-10.8)
[2021-07-15 13:27] LABS: ADD RBC MORPHOLOGY YES
[2021-07-15 13:44] LABS: VENOUS BASE EXCESS -2.4 mmol/L (-2-2); VENOUS O2 SATURATION 65.9 % (70-80); VENOUS PCO2 47.9 mmHg (38-52); VENOUS PH 7.317 (7.310-7.410)
[2021-07-15 14:52] LABS: EPITHELIAL CELLS FEW /hpf
[2021-07-15 16:27] LABS: PLATELET ESTIMATE ADEQUATE
[2021-07-15] MEDS ORDERED: FUROSEMIDE 40 MG/4 ML INJECTABLE VIAL IVPUSH ONE (18:44)
[2021-07-15] MEDS ORDERED: cefTRIAXone SODIUM 1 GM VIAL ONE (18:53)
[2021-07-15] MEDS: CEFTRIAXONE 1 GM in DEXTROSE 5%-WATER - 50 ML IVPB SCH (19:00)
[2021-07-15] MEDS ORDERED: FUROSEMIDE 40 MG/4 ML INJECTABLE VIAL ONE (19:10)
[2021-07-15] MEDS ORDERED: AZITHROMYCIN 500 MG VIAL IVPB ONE (19:10)
[2021-07-15] MEDS ORDERED: methylPREDNISolone NA SUCC 40 MG/1 ML VIAL ONE (19:11)
[2021-07-15] MEDS: methylPREDNISolone NA SUCC 40 MG/1 ML VIAL IVPUSH SCH (19:15)
[2021-07-15] MEDS: AZITHROMYCIN IVPB 500 MG/250 ML BAG IVPB SCH (19:20)
[2021-07-15] MEDS: DOCUSATE SODIUM 100 MG CAPSULE (FP) PO SCH (21:49)
[2021-07-15] MEDS: ATORVASTATIN CA 80 MG TABLET (FP) PO SCH (21:49)
[2021-07-15] MEDS: HEPARIN NA (PORCINE) 5,000 UNITS/ML 1ML VIAL SQ SCH (22:15)
[2021-07-16] MEDS: methylPREDNISolone NA SUCC 40 MG/1 ML VIAL IVPUSH SCH ×3 (02:37→18:15)
[2021-07-16] MEDS: INSULIN (LEVEMIR) 100 UNITS/ML UNITS SQ SCH (06:33)
[2021-07-16 08:23] LABS: BASO % 1.9 % (0-2.0); EOS % 0.1 % (0-4.5); HEMATOCRIT 32.9 % (32.4-45.2); HEMOGLOBIN 10.9 GM/dl (10.7-15.3); LYMPH % 3.8 % (8-40); MCH 28.7 pg (25.7-33.7); MCHC 33.3 g/dl (32.0-36.0); MEAN CELL VOLUME 86.2 fl (80-96); MEAN PLT VOLUME 9.2 fl (7.5-11.1); MONO % 0.6 % (3.8-10.2); NEUT % 93.6 % (42.8-82.8); PLATELET COUNT 262 10^3/uL (134-434); RBC 3.81 M/mm3 (3.60-5.2)
[2021-07-16 08:28] LABS: ALBUMIN 3.3 g/dl (3.4-5.0); ALK PHOS 59 U/L (45-117); ANION GAP 11 MMOL/L (8-16); BILIRUBIN,TOTAL 0.6 mg/dl (0.2-1); CALCIUM 8.8 mg/dl (8.5-10); CHLORIDE 99 mmol/L (98-107); CO2 25 mmol/L (21-32); CREATININE 1.5 mg/dl (0.55-1.3); GLUCOSE,RANDOM 244 mg/dl (74-106); MAGNESIUM 1.8 mg/dL (1.8-2.4); SGOT/AST 27 U/L (15-37); SGPT/ALT 22 U/L (13-61); SODIUM 135 mmol/L (136-145); TOT PROT 6.4 g/dl (6.4-8.2)
[2021-07-16] MEDS ORDERED: cefTRIAXone SODIUM 1 GM VIAL ONE (09:12)
[2021-07-16] MEDS ORDERED: DEXTROSE 5%-WATER - 50 ML IVPB ONE (09:12)
[2021-07-16] MEDS: ISOSORBIDE MONONITRATE 60 MG TAB.SR.24H (FP) PO SCH (09:21)
[2021-07-16] MEDS: LOSARTAN POTASSIUM 50 MG TABLET PO SCH (09:21)
[2021-07-16] MEDS: CHOLECALCIFEROL (VIT D3) 1,000 UNIT (25 MCG) TABLET PO SCH (09:21)
[2021-07-16] MEDS: ASPIRIN 81 MG CHEWABLE TABLETS PO SCH (09:21)
[2021-07-16] MEDS: HEPARIN NA (PORCINE) 5,000 UNITS/ML 1ML VIAL SQ SCH ×2 (09:23→21:19)
[2021-07-16] MEDS: DONEPEZIL HCL 5 MG TABLET (FP) PO SCH (09:23)
[2021-07-16] MEDS: CEFTRIAXONE 1 GM in DEXTROSE 5%-WATER - 50 ML IVPB SCH (09:24)
[2021-07-16] MEDS: AZITHROMYCIN IVPB 500 MG/250 ML BAG IVPB SCH (09:26)
[2021-07-16] MEDS: LEVALBUTEROL HCL 0.31 MG/3 ML VIAL.NEB IH SCH (19:58)
[2021-07-16] MEDS: DOCUSATE SODIUM 100 MG CAPSULE (FP) PO SCH (21:18)
[2021-07-16] MEDS: ATORVASTATIN CA 80 MG TABLET (FP) PO SCH (21:19)
[2021-07-17] MEDS: methylPREDNISolone NA SUCC 40 MG/1 ML VIAL IVPUSH SCH (02:25)
[2021-07-17] MEDS: INSULIN (LEVEMIR) 100 UNITS/ML UNITS SQ SCH (06:11)
[2021-07-17] MEDS ORDERED: cefTRIAXone SODIUM 1 GM VIAL ONE ×3 (09:22→09:49)
[2021-07-17] MEDS ORDERED: DEXTROSE 5%-WATER - 50 ML IVPB ONE (09:22)
[2021-07-17] MEDS: LEVALBUTEROL HCL 0.31 MG/3 ML VIAL.NEB IH SCH ×3 (09:26→21:59)
[2021-07-17] MEDS: CHOLECALCIFEROL (VIT D3) 1,000 UNIT (25 MCG) TABLET PO SCH (09:40)
[2021-07-17] MEDS: DONEPEZIL HCL 5 MG TABLET (FP) PO SCH (09:40)
[2021-07-17] MEDS: ISOSORBIDE MONONITRATE 60 MG TAB.SR.24H (FP) PO SCH (09:40)
[2021-07-17] MEDS: LOSARTAN POTASSIUM 50 MG TABLET PO SCH (09:40)
[2021-07-17] MEDS: ASPIRIN 81 MG CHEWABLE TABLETS PO SCH (09:43)
[2021-07-17] MEDS: HEPARIN NA (PORCINE) 5,000 UNITS/ML 1ML VIAL SQ SCH ×2 (09:43→21:59)
[2021-07-17] MEDS: AZITHROMYCIN IVPB 500 MG/250 ML BAG IVPB SCH (09:47)
[2021-07-17] MEDS: CEFTRIAXONE 1 GM in SODIUM CHLORIDE 50 ML IVPB SCH (09:48)
[2021-07-17] MEDS ORDERED: SODIUM CHLORIDE 50 ML IVPB ONE (09:50)
[2021-07-17] MEDS ORDERED: methylPREDNISolone NA SUCC 40 MG/1 ML VIAL IVPUSH SCH (10:00)
[2021-07-17] MEDS: ATORVASTATIN CA 80 MG TABLET (FP) PO SCH (21:59)
[2021-07-17] MEDS: DOCUSATE SODIUM 100 MG CAPSULE (FP) PO SCH (21:59)
[2021-07-18] MEDS: LEVALBUTEROL HCL 0.31 MG/3 ML VIAL.NEB IH SCH ×2 (08:28→14:23)
[2021-07-18] MEDS: INSULIN (LEVEMIR) 100 UNITS/ML UNITS SQ SCH (09:00)
[2021-07-18] MEDS: AZITHROMYCIN IVPB 500 MG/250 ML BAG IVPB SCH (09:00)
[2021-07-18] MEDS ORDERED: predniSONE 20 MG TABLET (UD) PO SCH (10:00)
[2021-07-18] MEDS ORDERED: SODIUM CHLORIDE 50 ML IVPB ONE (10:16)
[2021-07-18] MEDS ORDERED: cefTRIAXone SODIUM 1 GM VIAL ONE (10:16)
[2021-07-18] MEDS: CEFTRIAXONE 1 GM in SODIUM CHLORIDE 50 ML IVPB SCH (10:18)
[2021-07-18] MEDS: ASPIRIN 81 MG CHEWABLE TABLETS PO SCH (10:19)
[2021-07-18] MEDS: LOSARTAN POTASSIUM 50 MG TABLET PO SCH (10:19)
[2021-07-18] MEDS: DONEPEZIL HCL 5 MG TABLET (FP) PO SCH (10:20)
[2021-07-18] MEDS: CHOLECALCIFEROL (VIT D3) 1,000 UNIT (25 MCG) TABLET PO SCH (10:22)
[2021-07-18] MEDS: HEPARIN NA (PORCINE) 5,000 UNITS/ML 1ML VIAL SQ SCH (10:22)
[2021-07-18] MEDS: ISOSORBIDE MONONITRATE 60 MG TAB.SR.24H (FP) PO SCH (10:22)
[2021-07-18 13:57] VITALS: BP 176/56; PULSE 80; TEMP 98.5
== END 2021-07-18 16:08 | disposition home health service (06) | DRG 191 ==
LOC: FER 11:33 → FM/S 18:00
PROVIDERS: ADMIT Family Medicine; ATTEND Family Medicine
DX: J44.1 Chronic obstructive pulmonary disease with (acute) exacerbation (principal); N17.9 Acute kidney failure, unspecified; I25.10 Atherosclerotic heart disease of native coronary artery without angina pectoris; E78.5 Hyperlipidemia, unspecified; E11.9 Type 2 diabetes mellitus without complications; Z79.4 Long term (current) use of insulin; F03.90 Unspecified dementia, unspecified severity, without behavioral disturbance, psychotic disturbance, mood disturbance, and anxiety; I11.0 Hypertensive heart disease with heart failure; I50.9 Heart failure, unspecified; R91.1 Solitary pulmonary nodule
CPT/HCPCS: 36415; 71045-TC-FY; 71275-TC; 76775-TC; 80053; 81003; 81015; 82436; 82550; 82570; 82803; 82962; 83036; 83605; 83735; 83880; 84133; 84156; 84300; 84443; 84484; 85025; 85610; 85730; 87040; 87086; 87804; 87899; 93005; 94761; 97116-GP; 97162-GP; 99285-25; C9803; J1644; Q9967; U0003; U0005

== ENCOUNTER 2021-09-08 03:12 | Inpatient (IN) | payer OTHER, BC ==
[2021-09-08 03:27] VITALS: BMI 17.6
[2021-09-08] MEDS ORDERED: ASPIRIN 81 MG CHEWABLE TABLETS PO ONE (03:43)
[2021-09-08] MEDS ORDERED: ASPIRIN 81 MG CHEWABLE TABLETS ONE (04:08)
[2021-09-08 04:46] LABS: BASO % 0.2 % (0-2.0); EOS % 1.2 % (0-4.5); HEMATOCRIT 30.8 % (32.4-45.2); HEMOGLOBIN 9.8 GM/dL (10.7-15.3); LYMPH % 13.7 % (8-40); MCHC 31.9 g/dl (32.0-36.0); MEAN CELL VOLUME 84.5 fl (80-96); MEAN PLT VOLUME 8.8 fl (7.5-11.1); MONO % 9.6 % (3.8-10.2); NEUT % 75.3 % (42.8-82.8); PLATELET COUNT 338 10^3/uL (134-434); RBC 3.65 M/mm3 (3.60-5.2); RDW 15.3 % (11.6-15.6); WHITE BLOOD COUNT 11.2 K/mm3 (4.0-10.0)
[2021-09-08 04:54] LABS: VENOUS BASE EXCESS -3.4 mmol/L (-2-2); VENOUS PCO2 43.1 mmHg (38-52); VENOUS PH 7.333 (7.310-7.410)
[2021-09-08 04:58] LABS: EPI CELLS 4 /uL (0-25.1); HYALINE CASTS 0 /uL (0-3.1); URINE APPEARANCE CLEAR; URINE BACTERIA 11 /uL (0-1359); URINE BILIRUBIN NEGATIVE (NEGATIVE); URINE COLOR YELLOW; URINE GLUCOSE (UA) NEGATIVE (NEGATIVE); URINE KETONE NEGATIVE (NEGATIVE); URINE LEUK ESTERASE NEGATIVE (NEGATIVE); URINE NITRITE NEGATIVE (NEGATIVE); URINE PROTEIN 3+ (NEGATIVE); URINE RBC 4 /uL (0-23.9); URINE UROBILINOGEN 0.2 mg/dL (0.2-1.0); URINE WBC 10 /uL (0-25.8)
[2021-09-08 05:22] LABS: CALCIUM 9.3 mg/dL (8.5-10.1)
[2021-09-08 05:23] LABS: ALBUMIN 3.7 g/dl (3.4-5.0); BLOOD UREA NITROGEN 26.9 mg/dL (7-18)
[2021-09-08 05:26] LABS: CREATININE 1.1 mg/dL (0.55-1.3)
[2021-09-08 05:28] LABS: BILIRUBIN,TOTAL 0.4 mg/dL (0.2-1); TOT PROT 6.7 g/dl (6.4-8.2)
[2021-09-08 05:31] LABS: N-TERMINAL BNP 643.1 pg/ml (5-450)
[2021-09-08] MEDS ORDERED: ACETAMINOPHEN 325 MG TABLET (FP) PO ONE (05:59)
[2021-09-08] MEDS ORDERED: ACETAMINOPHEN 325 MG TABLET (FP) ONE (06:02)
[2021-09-08] MEDS ORDERED: INSULIN (LEVEMIR) 100 UNITS/ML UNITS SQ ONE (08:18)
[2021-09-08 11:06] LABS: MAGNESIUM 1.9 mg/dL (1.8-2.4)
[2021-09-08 11:14] LABS: CALCIUM 9.4 mg/dl (8.5-10); CREATININE 0.9 mg/dl (0.55-1.3)
[2021-09-08 11:15] LABS: ALBUMIN 3.8 g/dl (3.4-5.0); BILIRUBIN,TOTAL 0.5 mg/dl (0.2-1); TOT PROT 6.4 g/dl (6.4-8.2)
[2021-09-08 11:55] LABS: BASO % 0.3 % (0-2.0); EOS % 0.8 % (0-4.5); HEMATOCRIT 30.6 % (32.4-45.2); HEMOGLOBIN 9.9 GM/dL (10.7-15.3); LYMPH % 16.7 % (8-40); MCH 27.5 pg (25.7-33.7); MCHC 32.3 g/dl (32.0-36.0); MEAN CELL VOLUME 85.1 fl (80-96); MEAN PLT VOLUME 8.9 fl (7.5-11.1); MONO % 7.4 % (3.8-10.2); NEUT % 74.8 % (42.8-82.8); PLATELET COUNT 338 10^3/uL (134-434); RBC 3.59 M/mm3 (3.60-5.2); RDW 15.7 % (11.6-15.6); WHITE BLOOD COUNT 10.2 K/mm3 (4.0-10.0)
[2021-09-08] MEDS ORDERED: FUROSEMIDE 40 MG/4 ML INJECTABLE VIAL IVPUSH ONE (13:39)
[2021-09-08] MEDS: ISOSORBIDE MONONITRATE 60 MG TAB.SR.24H (FP) PO SCH (14:46)
[2021-09-08] MEDS: LOSARTAN POTASSIUM 50 MG TABLET PO SCH (14:46)
[2021-09-08] MEDS: ASPIRIN 81 MG CHEWABLE TABLETS PO SCH (14:47)
[2021-09-08] MEDS: INSULIN SLIDING SCALE (NOVOLOG) 1 VIAL SQ SCH ×2 (16:58→22:16)
[2021-09-08] MEDS: DOCUSATE SODIUM 100 MG CAPSULE (FP) PO SCH (22:15)
[2021-09-08] MEDS: HEPARIN NA (PORCINE) 5,000 UNITS/ML 1ML VIAL SQ SCH (22:15)
[2021-09-08] MEDS: ATORVASTATIN CA 80 MG TABLET (FP) PO SCH (22:16)
[2021-09-08] MEDS ORDERED: MELATONIN 1 MG TABLET PO ONE (22:58)
[2021-09-09] MEDS: INSULIN SLIDING SCALE (NOVOLOG) 1 VIAL SQ SCH ×4 (07:00→22:08)
[2021-09-09] MEDS: INSULIN (LEVEMIR) 100 UNITS/ML UNITS SQ SCH (07:00)
[2021-09-09] MEDS: PANTOPRAZOLE 40 MG TABLET PO SCH (09:41)
[2021-09-09] MEDS: ASPIRIN 81 MG CHEWABLE TABLETS PO SCH (09:41)
[2021-09-09] MEDS: LOSARTAN POTASSIUM 50 MG TABLET PO SCH ×2 (09:41→10:19)
[2021-09-09] MEDS: HEPARIN NA (PORCINE) 5,000 UNITS/ML 1ML VIAL SQ SCH ×2 (09:41→22:08)
[2021-09-09] MEDS: ISOSORBIDE MONONITRATE 60 MG TAB.SR.24H (FP) PO SCH (09:41)
[2021-09-09] MEDS ORDERED: IRON SUCROSE INJECTION 200 MG in SODIUM CHLORIDE 90 ML IVPB ONE (10:00)
[2021-09-09 11:08] LABS: ALBUMIN 3.4 g/dl (3.4-5.0); BILIRUBIN,TOTAL 0.5 mg/dl (0.2-1); CALCIUM 9.1 mg/dl (8.5-10); CREATININE 1.4 mg/dl (0.55-1.3); TOT PROT 5.8 g/dl (6.4-8.2)
[2021-09-09 11:46] LABS: BASO % 0.4 % (0-2.0); EOS % 2.2 % (0-4.5); HEMATOCRIT 29.3 % (32.4-45.2); HEMOGLOBIN 9.3 GM/dL (10.7-15.3); LYMPH % 23.1 % (8-40); MCH 27.2 pg (25.7-33.7); MCHC 31.8 g/dl (32.0-36.0); MEAN CELL VOLUME 85.5 fl (80-96); MEAN PLT VOLUME 9.4 fl (7.5-11.1); MONO % 11.5 % (3.8-10.2); NEUT % 62.8 % (42.8-82.8); PLATELET COUNT 298 10^3/uL (134-434); RBC 3.42 M/mm3 (3.60-5.2); RDW 15.5 % (11.6-15.6); WHITE BLOOD COUNT 9.3 K/mm3 (4.0-10.0)
[2021-09-09] MEDS ORDERED: MELATONIN 1 MG TABLET PO ONE (22:03)
[2021-09-09] MEDS: ATORVASTATIN CA 80 MG TABLET (FP) PO SCH (22:08)
[2021-09-09] MEDS: DOCUSATE SODIUM 100 MG CAPSULE (FP) PO SCH (22:08)
[2021-09-09 23:36] LABS: VENOUS BASE EXCESS 1.1 mmol/L (-2-2); VENOUS O2 SATURATION 72.5 % (70-80); VENOUS PCO2 47.7 mmHg (38-52); VENOUS PH 7.367 (7.310-7.410)
[2021-09-10] MEDS: INSULIN SLIDING SCALE (NOVOLOG) 1 VIAL SQ SCH ×2 (06:16→11:44)
[2021-09-10] MEDS: INSULIN (LEVEMIR) 100 UNITS/ML UNITS SQ SCH (06:17)
[2021-09-10 10:41] VITALS: BP 149/36; PULSE 60; TEMP 98.8
[2021-09-10] MEDS: ASPIRIN 81 MG CHEWABLE TABLETS PO SCH (10:57)
[2021-09-10] MEDS: ISOSORBIDE MONONITRATE 60 MG TAB.SR.24H (FP) PO SCH (10:57)
[2021-09-10] MEDS: PANTOPRAZOLE 40 MG TABLET PO SCH (10:57)
[2021-09-10] MEDS: HEPARIN NA (PORCINE) 5,000 UNITS/ML 1ML VIAL SQ SCH (10:57)
[2021-09-10] MEDS: LOSARTAN POTASSIUM 50 MG TABLET PO SCH (10:57)
== END 2021-09-10 11:42 | disposition home or self-care (01) | DRG 313 ==
LOC: FER 03:12 → SUPCPDRO 03:12 → FM/S 10:10 → OBSVTOIN 10:19
PROVIDERS: ADMIT Family Medicine; ATTEND Family Medicine
DX: R07.89 Other chest pain (principal); I25.10 Atherosclerotic heart disease of native coronary artery without angina pectoris; J44.9 Chronic obstructive pulmonary disease, unspecified; E11.9 Type 2 diabetes mellitus without complications; F03.90 Unspecified dementia, unspecified severity, without behavioral disturbance, psychotic disturbance, mood disturbance, and anxiety; E78.00 Pure hypercholesterolemia, unspecified; D64.9 Anemia, unspecified; J45.909 Unspecified asthma, uncomplicated; I11.0 Hypertensive heart disease with heart failure; I50.9 Heart failure, unspecified; R05.9 Cough, unspecified; K31.9 Disease of stomach and duodenum, unspecified; Z95.5 Presence of coronary angioplasty implant and graft; Z79.82 Long term (current) use of aspirin
CPT/HCPCS: 36415; 71045-TC-FY; 71250-TC; 80053; 80061; 81003; 82550; 82728; 82803; 82962; 83036; 83540; 83550; 83735; 83880; 84443; 84484; 85025; 93005; 97116-GP; 97161-GP; 99285-25; C9803-CS; G0378; J1644; J1756; U0003; U0005

== ENCOUNTER 2021-10-23 10:56 | Emergency (ER) | payer OTHER, BC ==
[2021-10-23 11:13] VITALS: BP 133/63; PULSE 63; TEMP 97.9; BMI 19.8
[2021-10-23] MEDS ORDERED: ACETAMINOPHEN 325 MG TABLET (FP) PO ONE (11:21)
[2021-10-23] MEDS ORDERED: ACETAMINOPHEN 325 MG TABLET (FP) ONE (11:43)
== END 2021-10-23 14:02 | disposition home or self-care (01) ==
LOC: FER 10:56
DX: M79.675 Pain in left toe(s) (principal); W01.0XXA Fall on same level from slipping, tripping and stumbling without subsequent striking against object, initial encounter
CPT/HCPCS: 70450-TC; 72125-TC; 73610-TC-LT-FY; 73630-TC-LT; 99285-25

== ENCOUNTER 2021-12-27 17:10 | Emergency (ER) | payer OTHER, BC ==
[2021-12-27 17:52] VITALS: BP 170/5; PULSE 80; TEMP 98.8; BMI 21.2
[2021-12-27] MEDS ORDERED: DIPHTH,PERTUSS(ACELL),TET 0.5 ML DISP.SYRIN IM ONE ×2 (19:17→19:18)
== END 2021-12-27 19:25 | disposition home or self-care (01) ==
LOC: FER 17:10
PROC: 0HQ0XZZ Repair Scalp Skin, External Approach (ICD-10-PCS; principal; 2021-12-27)
PROC: 3E0234Z Introduction of Serum, Toxoid and Vaccine into Muscle, Percutaneous Approach (ICD-10-PCS; 2021-12-27)
DX: S01.01XA Laceration without foreign body of scalp, initial encounter (principal); W19.XXXA Unspecified fall, initial encounter
CPT/HCPCS: 12001-25; 70450-TC; 81003; 81015; 90471; 90715; 93005; 99285-25